=== PATIENT | male | born 1980 | race Caucasian/White ===

== ENCOUNTER 2017-07-15 20:43 | Emergency (ER) | payer BC, OTHER ==
--- OUTSIDE RECORDS SUMMARY | 2017-07-15 20:44 | XMS REPORT ---
:1980 Author Organization eClinicalWorks Care Team Providers Name Role Phone Esparza, Na Provider Role Unavailable Allergies, Adverse Reactions, Alerts Substance Reaction Event Type N.K.D.A. Info Not Available Non Drug Allergy Problems Problem Type Condition Code Onset Dates Condition Status Problem Diabetes mellitus, type 2 E11.9 Active Problem Gastroesophageal reflux disease K21.9 Active Problem Cervicalgia M54.2 Active Problem Hyperlipidemia E78.5 Active Problem Hypertension I10 Active Problem ADD (attention deficit disorder) F98.8 Active without hyperactivity Problem Morbid obesity E66.01 Active Problem Migraine G43.909 Active Problem Anxiety F41.9 Active Problem Insomnia G47.00 Active Assessment ADD (attention deficit disorder) F98.8 Active without hyperactivity Assessment Insomnia G47.00 Active Assessment Migraine G43.909 Active Assessment Anxiety F41.9 Active Assessment Hypertension I10 Active Assessment Diabetes mellitus, type 2 E11.9 Active Assessment Gastroesophageal reflux disease K21.9 Active Problem Cervical radiculopathy M54.12 Active Assessment Hyperlipidemia E78.5 Active Problem Tingling in extremities R20.2 Active Medications Medication Code Code Instructions Start End Status Dosage System Date Date Imitrex [facility] 07921224368 100 MG Orally Active 1 tablet ocne a day as as needed needed, may repeat 1 dose in 2 hours max of 200mg in 24 hours Dexilant [facility] 18678809253 60 MG Orally Active 1 capsule Once a day GlipiZIDE [facility] 75937773006 5 MG Orally Once Active 1 tablet a day Cozaar [facility] 90634740989 100 MG Orally Active 1 tablet Once a day Ambien [facility] 15395141939 10 MG Orally Active 1 tablet Once a day at bedtime as needed Aspirin Adult [facility] 91398892353 81 MG Orally Active 1 tablet Low Dose Once a day Zoloft [facility] 13045778385 100 MG Orally Active 1 tablet Once a day Metformin HCl [facility] 46614434245 1000 MG Orally Active 1 tablet Twice a day with meals Lipitor [facility] 99596005086 20 MG Orally Active 1 tablet Once a day Results Name Result Date Reference Range Unit Abnormality Flag HEMOGLOBIN A1c ----HEMOGLOBIN A1c 6.6 [id number] <5.7 % of total H Hgb CBC (INCLUDES DIFF/PLT) ----ABSOLUTE 380 48849644 15-500 cells/uL N EOSINOPHILS ----MCV 84.1 90406127 80.0-100.0 fL N ----HEMATOCRIT 44.0 29972624 38.5-50.0 % N ----ABSOLUTE 518 37157374 200-950 cells/uL N MONOCYTES ----MCHC 33.6 17418363 32.0-36.0 g/dL N ----ABSOLUTE 2000 45535417 850-3900 cells/uL N LYMPHOCYTES ----MCH 28.3 17902891 27.0-33.0 pg N ----ABSOLUTE 4365 01933264 1324-6781 cells/uL N NEUTROPHILS ----MONOCYTES 7.1 09447986 % N ----WHITE BLOOD 7.3 78654365 3.8-10.8 Thousand/uL N CELL COUNT ----LYMPHOCYTES 27.4 07116354 % N ----NEUTROPHILS 59.8 72328047 % N ----HEMOGLOBIN 14.8 97307746 13.2-17.1 g/dL N ----ABSOLUTE 37 55749029 0-200 cells/uL N BASOPHILS ----RED BLOOD CELL 5.23 08944162 4.20-5.80 Million/uL N COUNT ----BASOPHILS 0.5 39321044 % N ----MPV 10.0 47801134 7.5-12.5 fL N ----EOSINOPHILS 5.2 10828861 % N ----RDW 13.0 99437755 11.0-15.0 % N ----PLATELET COUNT 285 70062229 140-400 Thousand/uL N COMPREHENSIVE METABOLIC PANEL(CMP) ----ALBUMIN/GLOBULI 2.0 30499710 1.0-2.5 (calc) N N RATIO ----GLOBULIN 2.2 63114539 1.9-3.7 g/dL (calc) N ----ALKALINE 83 46859023 40-115 U/L N PHOSPHATASE ----BILIRUBIN, 0.4 54293338 0.2-1.2 mg/dL N TOTAL ----CHLORIDE 104 20170706 98-110 mmol/L N ----ALT 34 20170706 9-46 U/L N ----POTASSIUM 4.3 61159145 3.5-5.3 mmol/L N ----AST 18 20170706 10-40 U/L N ----SODIUM 137 40718362 135-146 mmol/L N ----BUN/CREATININE NOT APPLICABLE 20170706 6-22 (calc) RATIO ----eGFR 134 85339280 > OR=60 mL/min/1.73 [place] [address] ----CALCIUM 9.5 64373511 8.6-10.3 mg/dL N ----CARBON DIOXIDE 26 20170706 20-31 mmol/L N ----ALBUMIN 4.4 20170706 3.6-5.1 g/dL N ----PROTEIN, TOTAL 6.6 23018862 6.1-8.1 g/dL N ----GLUCOSE 125 20170706 65-139 mg/dL N ----UREA NITROGEN 15 20170706 7-25 mg/dL N (BUN) ----CREATININE 0.77 93535428 0.60-1.35 mg/dL N ----eGFR NON-AFR. 116 79396870 > OR=60 mL/min/1.73 [address] [place] [address] LIPID PANEL WITH REFLEX TO DIRECT LDL ----NON HDL 127 16140539 <130 mg/dL N CHOLESTEROL (calc) ----LDL-CHOLESTEROL 96 74642387 mg/dL N (calc) ----CHOL/HDLC RATIO 3.6 45135264 <5.0 (calc) N ----HDL CHOLESTEROL 48 88138306 >40 mg/dL N ----TRIGLYCERIDES 212 52962996 <150 mg/dL H ----CHOLESTEROL, 175 62081300 <200 mg/dL N TOTAL Summary Purpose eClinicalWorks Submission
--- OUTSIDE RECORDS SUMMARY | 2017-07-15 20:45 | XMS REPORT ---
:1980 Author Organization e[employer]Works Care Team Providers Name Role Phone Esparza, Na Provider Role Unavailable Allergies No Known Allergies Problems Problem Type Condition Code Onset Dates Condition Status Problem Diabetes mellitus, type 2 E11.9 Active Problem Gastroesophageal reflux disease K21.9 Active Problem Cervicalgia M54.2 Active Problem Cervical radiculopathy M54.12 Active Problem Tingling in extremities R20.2 Active Problem Hyperlipidemia E78.5 Active Problem Hypertension I10 Active Problem ADD (attention deficit disorder) F98.8 Active without hyperactivity Problem Morbid obesity E66.01 Active Problem Migraine G43.909 Active Problem Anxiety F41.9 Active Problem Insomnia G47.00 Active Medications No Known Medications Results No Known Results Summary Purpose eClinicalWorks Submission
[2017-07-15 21:18] LABS: Absolute Lymphocytes (CBC) 2.1 K/uL (0.7-4.9); Absolute Monocytes 0.4 K/uL (0.1-1.3); Absolute Neutrophil 3.2 K/uL (1.8-8.0); Basophils % 0.5 % (0-1.3); Eosinophils % 5.7 % (0-4.4); Hematocrit 43.1 % (39.6-49.0); Lymphocytes % 33.7 % (15.3-44.8); MCH 28.4 pg (27.0-35.0); MCV 84.5 fL (80-100); MPV 7.6 fL (7.6-11.3); Monocytes % 7.3 % (3.3-12.3)
[2017-07-15 21:23] LABS: Protime INR 0.9
[2017-07-15 21:35] LABS: Bicarbonate 26 mEq/L (21-31); Glucose Level 218 mg/dL (65-120); Potassium 3.7 mEq/L (3.6-5.0); Sodium Level 135 mEq/L (135-145)
[2017-07-15 21:51] LABS: ALT/SGPT 38 IU/L (10-60); AST/SGOT 27 IU/L (10-42); Albumin 3.7 g/dL (3.2-5.5); Alkaline Phosphatase 85 IU/L (42-121); BUN Blood Urea Nitrogen 14 mg/dL (6-20); Bilirubin Direct 0.1 mg/dL (0-0.2); Bilirubin Total 0.5 mg/dL (0.3-1.2); Creatine Phosphokinase 152 IU/L (22-269); Magnesium 1.6 mg/dL (1.8-2.5); Protein, Total 6.4 g/dL (6.0-8.3)
[2017-07-15] MEDS ORDERED: Magnesium Sulfate 2gm IVPB 2 G/50 ML BAG IV ONE (22:05)
--- NOTE | 2017-07-15 23:51 | EDPHYS ---
Physician Documentation [facility] Name: Mitch Lobo Age: 36 yrs Sex: Male : 1980 Arrival Date: 07/15/2017 Time: 20:46 Bed 15 Private MD: ED Physician Reginald Ferro HPI: 07/15 22:14 This 36 yrs old Male presents to ER via Wheelchair with complaints of Chest kb Pain. 22:14 The patient or guardian reports chest pain that is located primarily in the substernal kb area. The pain radiates to the left arm. Associated signs and symptoms: The patient has no apparent associated signs or symptoms. The chest pain is described as tightness. Duration: The patient or guardian reports a single episode, that is still ongoing. Modifying factors: The symptoms are alleviated by nothing. the symptoms are aggravated by nothing. Severity of pain: At its worst the pain was moderate in the emergency department the pain is unchanged. The patient has not experienced similar symptoms in the past. The patient has not recently seen a physician. 22:53 Pain started after arguing with family member. kb Historical: - Allergies: 20:50 No Known Allergies; la1 - Home Meds: 21:52 Ambien 10 mg Oral tab as needed [Active]; aspirin 81 mg Oral chew 1 tab once daily bs1 [Active]; atorvastatin 20 mg Oral tab 1 tab once daily [Active]; Dexilant 60 mg Oral CpDB 1 cap once daily [Active]; losartan 100 mg Oral tab 1 tab once daily [Active]; metformin 1,000 mg Oral tab 1 tab 2 times per day [Active]; sertraline 100 mg Oral tab 1 tab once daily [Active]; Vyvanse 60 mg Oral cap once daily [Active]; Zyrtec 10 mg Oral tab 1 tab once daily [Active]; - PMHx: 20:50 Diabetes - IDDM; Gastric Reflux; High Cholesterol; Hypertension; la1 - PSHx: 21:52 None; bs1 - Immunization history:: Adult Immunizations up to date. - Social history:: Smoking status: Patient/guardian denies using tobacco. ROS: 22:13 Constitutional: Negative for fever, chills, and weight loss, Respiratory: Negative for kb shortness of breath, cough, wheezing, and pleuritic chest pain, Abdomen/GI: Negative for abdominal pain, nausea, vomiting, diarrhea, and constipation, Back: Negative for injury and pain, : Negative for injury, bleeding, discharge, and swelling, MS/Extremity: Negative for injury and deformity, Skin: Negative for injury, rash, and discoloration, Neuro: Negative for headache, weakness, numbness, tingling, and seizure. 22:13 Cardiovascular: Positive for chest pain, Negative for edema, orthopnea, palpitations, paroxysmal nocturnal dyspnea. Exam: 22:13 Constitutional: This is a well developed, well nourished patient who is awake, alert, kb and in no acute distress. Head/Face: Normocephalic, atraumatic. Chest/axilla: Normal chest wall appearance and motion. Nontender with no deformity. No lesions are appreciated. Cardiovascular: Regular rate and rhythm with a normal S1 and S2. No gallops, murmurs, or rubs. Normal PMI, no JVD. No pulse deficits. Respiratory: Lungs have equal breath sounds bilaterally, clear to auscultation and percussion. No rales, rhonchi or wheezes noted. No increased work of breathing, no retractions or nasal flaring. Abdomen/GI: Soft, non-tender, with normal bowel sounds. No distension or tympany. No guarding or rebound. No evidence of tenderness throughout. Skin: Warm, dry with normal turgor. Normal color with no rashes, no lesions, and no evidence of cellulitis. MS/ Extremity: Pulses equal, no cyanosis. Neurovascular intact. Full, normal range of motion. Neuro: Awake and alert, GCS 15, oriented to person, place, time, and situation. Cranial nerves II-XII grossly intact. Motor strength 5/5 in all extremities. Sensory grossly intact. Cerebellar exam normal. Normal gait. Vital Signs: 20:50 BP 140 / 93; Pulse 74; Resp 16; Temp 98.5; Pulse Ox 100% on R/A; Weight 120.2 kg; la1 Height 5 ft. 10 in. (177.80 cm); 21:45 BP 129 / 80; Pulse 69; Resp 23; Pulse Ox 95% ; bs1 22:45 BP 106 / 61; Pulse 61; Resp 17; Pulse Ox 100% on R/A; Pain 0/10; bs1 23:45 BP 125 / 87; Pulse 54; Resp 18; Pulse Ox 100% on R/A; Pain 0/10; bs1 07/16 00:00 BP 119 / 80; Pulse 55; Resp 17; Temp 98(O); Pulse Ox 99% on R/A; Pain 0/10; bs1 07/15 20:50 Body Mass Index 38.02 (120.20 kg, 177.80 cm) la1 MDM: 07/15 20:55 Patient medically screened. 22:13 HILLARY Risk Score: 1 - Three or more CAD risk factors, [HTN], [Elevated Cholesterol], kb [DM], TOTAL SCORE = 1. Data reviewed: vital signs, nurses notes. Data interpreted: Pulse oximetry: on room air is 95 %. Interpretation: normal. ED course: HEART score - 2. 23:50 Data reviewed: I have discussed the patient's presentation/case with the attending Emergency Department Physician;. Counseling: I had a detailed discussion with the patient and/or guardian regarding: the historical points, exam findings, and any diagnostic results supporting the discharge/admit diagnosis, lab results, radiology results, the need for outpatient follow up, a retail marketing manager, a family practitioner, to return to the emergency department if symptoms worsen or persist or if there are any questions or concerns that arise at home. 07/15 21:06 Order name: Basic Metabolic Panel; Complete Time: 21:59 kb 07/15 21:06 Order name: BNP; Complete Time: 21:43 kb 07/15 21:06 Order name: CBC with Diff; Complete Time: 21:21 kb 07/15 21:06 Order name: Ckmb; Complete Time: 21:59 kb 07/15 21:06 Order name: CPK; Complete Time: 21:59 kb 07/15 21:06 Order name: LFT's; Complete Time: 21:59 kb 07/15 21:06 Order name: Magnesium; Complete Time: 21:59 kb 07/15 21:06 Order name: PT-INR; Complete Time: 21:32 kb 07/15 21:06 Order name: Ptt, Activated; Complete Time: 21:32 kb 07/15 21:06 Order name: Troponin (emerg Dept Use Only); Complete Time: 21:39 kb 07/15 21:06 Order name: XRAY Chest (1 view) 07/15 21:06 Order name: EKG; Complete Time: 21:07 kb 07/15 22:53 Order name: Troponin (emerg Dept Use Only); Complete Time: 23:50 kb 07/15 21:06 Order name: Cardiac monitoring; Complete Time: 21:53 kb 07/15 21:06 Order name: EKG - Nurse/Tech; Complete Time: 21:53 kb 07/15 21:06 Order name: IV Saline Lock; Complete Time: 21:53 kb 07/15 21:06 Order name: Labs collected and sent; Complete Time: 21:53 kb 07/15 21:06 Order name: O2 Per Protocol; Complete Time: 21:53 kb 07/15 21:06 Order name: O2 Sat Monitoring; Complete Time: 21:53 kb 07/15 22:53 Order name: EKG; Complete Time: 22:53 kb 07/15 22:53 Order name: EKG - Nurse/Tech; Complete Time: 23:40 kb Administered Medications: 22:11 Drug: Magnesium Sulfate 2 grams Route: IVPB; Infused Over: 2 hrs; Site: right bs1 antecubital; 23:40 Follow up: IV Status: Completed infusion bs1 Disposition: 07/16 03:13 Co-signature as Attending Physician, Reginald Ferro MD I agree with the assessment and tw4 plan of care. Disposition: 07/15/17 23:51 Discharged to Home. Impression: Chest pain, unspecified. - Condition is Stable. - Discharge Instructions: Nonspecific Chest Pain, Dieq-mn-Odiy. - Medication Reconciliation Form, Thank You Letter, Antibiotic Education, Prescription Opioid Use form. - Follow up: Emergency Department; When: As needed; Reason: Worsening of condition. Follow up: Private Physician; When: 2 - 3 days; Reason: Recheck today's complaints, Continuance of care, Re-evaluation by your physician. Signatures: Dispatcher [employer] Noelle Mendiola FNP-C FNP-Kana Flores RN RN Dolly Velarde, RN RN bs1 Reginald Ferro MD MD tw4
--- NOTE | 2017-07-15 23:51 | ER ---
Nurse's Notes [facility] Name: Mitch Lobo Age: 36 yrs Sex: Male : 1980 Arrival Date: 07/15/2017 Time: 20:46 Bed 15 Private MD: Diagnosis: Chest pain, unspecified Presentation: 07/15 20:49 Presenting complaint: Patient states: I have been having a pressure like chest pain la1 since 529, pt states the pain woke him up. Pt reports pain radiates down left arm and he has been feeling very fatigued all day. Transition of care: patient was not received from another setting of care. Onset of symptoms was July 15, 2017. Initial Sepsis Screen: Does the patient meet any 2 criteria? No. Patient's initial sepsis screen is negative. Does the patient have a suspected source of infection? No. Patient's initial sepsis screen is negative. Care prior to arrival: None. 20:49 Method Of Arrival: Wheelchair la1 20:49 Acuity: JOSE M 2 la1 Historical: - Allergies: 20:50 No Known Allergies; la1 - Home Meds: 21:52 Ambien 10 mg Oral tab as needed [Active]; aspirin 81 mg Oral chew 1 tab once daily bs1 [Active]; atorvastatin 20 mg Oral tab 1 tab once daily [Active]; Dexilant 60 mg Oral CpDB 1 cap once daily [Active]; losartan 100 mg Oral tab 1 tab once daily [Active]; metformin 1,000 mg Oral tab 1 tab 2 times per day [Active]; sertraline 100 mg Oral tab 1 tab once daily [Active]; Vyvanse 60 mg Oral cap once daily [Active]; Zyrtec 10 mg Oral tab 1 tab once daily [Active]; - PMHx: 20:50 Diabetes - IDDM; Gastric Reflux; High Cholesterol; Hypertension; la1 - PSHx: 21:52 None; bs1 - Immunization history:: Adult Immunizations up to date. - Social history:: Smoking status: Patient/guardian denies using tobacco. Screenin:50 Abuse screen: Denies threats or abuse. Denies injuries from another. Nutritional bs1 screening: No deficits noted. Tuberculosis screening: No symptoms or risk factors identified. Fall Risk None identified. Assessment: 20:55 General: Appears uncomfortable, Behavior is cooperative, anxious. Pain: Complains of bs1 pain in chest Pain radiates to left arm Pain began gradually. Neuro: Level of Consciousness is awake, alert, obeys commands, Oriented to person, place, time, situation, Appropriate for age Fuel Testing Technician are equal bilaterally Moves all extremities. Gait is steady, Speech is normal, Facial symmetry appears normal. Cardiovascular: Reports chest pain, Denies palpitations, shortness of breath, Heart tones S1 S2 present Capillary refill < 3 seconds Patient's skin is warm and dry. Respiratory: Airway is patent Trachea midline Respiratory effort is even, unlabored, Respiratory pattern is regular, symmetrical, Breath sounds are clear bilaterally. GI: No deficits noted. No signs and/or symptoms were reported involving the gastrointestinal system. : No deficits noted. No signs and/or symptoms were reported regarding the genitourinary system. EENT: No deficits noted. No signs and/or symptoms were reported regarding the EENT system. Derm: Skin is intact, Skin is pink, warm \T\ dry. Musculoskeletal: Circulation, motion, and sensation intact. Capillary refill < 3 seconds, Range of motion: intact in all extremities. 22:30 Reassessment: Patient appears in no apparent distress at this time. Patient and/or bs1 family updated on plan of care and expected duration. Pain level reassessed. Patient is alert, oriented x 3, equal unlabored respirations, skin warm/dry/pink. 23:20 Reassessment: Repeat EKG done, shown to ENVIRONMENTAL SCIENCE TECHNICIAN/MD. bs1 07/16 00:00 Reassessment: Patient appears in no apparent distress at this time. No changes from 1 previously documented assessment. Patient and/or family updated on plan of care and expected duration. Pain level reassessed. Patient is alert, oriented x 3, equal unlabored respirations, skin warm/dry/pink. Patient states feeling better. Patient states symptoms have improved. Vital Signs: 07/15 20:50 BP 140 / 93; Pulse 74; Resp 16; Temp 98.5; Pulse Ox 100% on R/A; Weight 120.2 kg; la1 Height 5 ft. 10 in. (177.80 cm); 21:45 BP 129 / 80; Pulse 69; Resp 23; Pulse Ox 95% ; bs1 22:45 BP 106 / 61; Pulse 61; Resp 17; Pulse Ox 100% on R/A; Pain 0/10; bs1 23:45 BP 125 / 87; Pulse 54; Resp 18; Pulse Ox 100% on R/A; Pain 0/10; bs1 07/16 00:00 BP 119 / 80; Pulse 55; Resp 17; Temp 98(O); Pulse Ox 99% on R/A; Pain 0/10; bs1 07/15 20:50 Body Mass Index 38.02 (120.20 kg, 177.80 cm) la1 ED Course: 07/15 20:46 Patient arrived in ED. es 20:49 Triage completed. la1 20:50 Arm band placed on left wrist. la1 20:53 Noelle Schmitz [facility]C [facility] kb 20:53 Reginald Ferro MD is Attending Physician. kb 20:54 Dolly Carver, KAYLA is Primary Nurse. bs1 21:09 No provider procedures requiring assistance completed. Inserted saline lock: 22 gauge bs1 in right forearm, using aseptic technique. 21:09 Patient maintains SpO2 saturation greater than 95% on room air. bs1 21:51 Patient has correct armband on for positive identification. Bed in low position. Call bs1 light in reach. Side rails up X 1. property assessment monitor on. Pulse ox on. NIBP on. Sitter at bedside. Warm blanket given. 21:55 X-ray completed. Portable x-ray completed in exam room. Patient tolerated procedure ag1 well. 21:56 XRAY Chest (1 view) In Process Unspecified. EDMS 23:15 Repeat lab(s) drawn. by ms, sent to lab. Repeat troponin. bs1 07/16 00:23 IV discontinued, bleeding controlled, No redness/swelling at site. Pressure dressing bs1 applied. Administered Medications: 07/15 22:11 Drug: Magnesium Sulfate 2 grams Route: IVPB; Infused Over: 2 hrs; Site: right bs1 antecubital; 23:40 Follow up: IV Status: Completed infusion bs1 Outcome: 23:51 Discharge ordered by . patricio 07/16 00:22 Discharged to home ambulatory, with significant other. bs1 Condition: stable Discharge instructions given to patient, Instructed on discharge instructions, follow up and referral plans. Demonstrated understanding of instructions, follow-up care. 00:23 Patient left the ED. bs1 Signatures: Dispatcher [employer] EDMS Noelle Schmitz FNP-C FNP-Ckb Trinh Ochoa Lee, RN RN la1 Amy [email or web address] Dolly Carver, RN RN bs1
[2017-07-16 00:56] VITALS: BP 119/80; TEMP 98; O2SAT 99
--- NOTE | 2017-07-16 07:01 | EKG ---
Test Date: 2017-07-15 Test Time: 23:14:40 Phone Representative: DONNELL MEASUREMENT RESULTS: Intervals: Rate: 59 DE: 166 QRSD: 96 QT: 418 QTc: 413 [place]: P: 39 DE: 166 QRS: 65 T: 2 INTERPRETIVE STATEMENTS: Sinus bradycardia Cannot rule out Inferior infarct, age undetermined Abnormal ECG Compared to ECG 07/15/2017 23:13:09 Sinus rhythm no longer present Myocardial infarct finding still present Electronically Signed On 07-16-17 07:00:52 CDT by Jeromy Joshi
--- NOTE | 2017-07-16 07:01 | EKG ---
Test Date: 2017-07-15 Test Time: 23:13:09 Stamping Die Maker: DONNELL MEASUREMENT RESULTS: Intervals: Rate: 64 MA: 166 QRSD: 96 QT: 408 QTc: 420 [place]: P: 41 MA: 166 QRS: 63 T: 0 INTERPRETIVE STATEMENTS: Normal sinus rhythm Possible Inferior infarct, age undetermined Abnormal ECG Compared to ECG 07/15/2017 20:56:23 Myocardial infarct finding now present Electronically Signed On 07-16-17 07:00:57 CDT by Jeromy Joshi
--- NOTE | 2017-07-16 07:02 | EKG ---
Test Date: 2017-07-15 Test Time: 20:56:23 Maintenance Mechanic Technician: DONNELL MEASUREMENT RESULTS: Intervals: Rate: 69 ND: 160 QRSD: 92 QT: 388 QTc: 415 [place]: P: 37 ND: 160 QRS: 60 T: 5 INTERPRETIVE STATEMENTS: Normal sinus rhythm Normal ECG Compared to ECG 10/25/2015 10:30:00 No significant changes Electronically Signed On 07-16-17 07:01:24 CDT by Jeromy Joshi
--- NOTE | 2017-07-16 08:04 | RAD REPORT ---
EXAM DESCRIPTION: Makenzie Single View07/15/2017 9:56 pm CLINICAL HISTORY: Chest pain COMPARISON: April 2016 FINDINGS: The lungs appear clear of acute infiltrate. The heart is normal size IMPRESSION: No acute abnormalities displayed
== END 2017-07-16 00:23 | disposition home or self-care (01) ==
LOC: ER 20:43
DX: R07.9 Chest pain, unspecified (principal); I10 Essential (primary) hypertension; E11.9 Type 2 diabetes mellitus without complications; E78.00 Pure hypercholesterolemia, unspecified; Z79.82 Long term (current) use of aspirin
CPT/HCPCS: 36415; 71045; 80048; 80076; 82550; 82553; 83735; 83880; 84484; 85025; 85610; 85730; 93005; 96365; 99285; J3475

== ENCOUNTER 2017-10-30 18:48 | Observation (INO) | payer BC, OTHER ==
--- OUTSIDE RECORDS SUMMARY | 2017-10-30 18:51 | XMS REPORT ---
:1980 Author Organization eClinicalWorks Care Team Providers Name Role Phone Espazra, Na Provider Role Unavailable Allergies No Known [...]
--- OUTSIDE RECORDS SUMMARY | 2017-10-30 18:51 | XMS REPORT ---
[...] End Status Dosage System Date Date Imitrex [facility] 79500124907 100 MG Orally Active 1 tablet ocne a day as as needed needed, may repeat 1 dose in 2 hours max of 200mg in 24 hours Dexilant [facility] 11010020694 60 MG Orally Active 1 capsule Once a day GlipiZIDE [facility] 71365855209 5 MG Orally Once Active 1 tablet a day Cozaar [facility] 93779761672 100 MG Orally Active 1 tablet Once a day Ambien [facility] 39858139642 10 MG Orally Active 1 tablet Once a day at bedtime as needed Aspirin Adult [facility] 10236896842 81 MG Orally Active 1 tablet Low Dose Once a day Zoloft [facility] 89848691312 100 MG Orally Active 1 tablet Once a day Metformin HCl [facility] 04690605756 1000 MG Orally Active 1 tablet Twice a day with meals Lipitor [facility] 69757336496 20 MG Orally Active 1 tablet Once a day Results Name Result Date Reference Range Unit Abnormality Flag HEMOGLOBIN A1c ----HEMOGLOBIN A1c 6.6 [id number] <5.7 % of total H Hgb CBC (INCLUDES DIFF/PLT) ----ABSOLUTE 380 68222964 15-500 cells/uL N EOSINOPHILS ----MCV 84.1 32097162 80.0-100.0 fL N ----HEMATOCRIT 44.0 50852408 38.5-50.0 % N ----ABSOLUTE 518 21800728 200-950 cells/uL N MONOCYTES ----MCHC 33.6 49095177 32.0-36.0 g/dL N ----ABSOLUTE 2000 68058847 850-3900 cells/uL N LYMPHOCYTES ----MCH 28.3 34572250 27.0-33.0 pg N ----ABSOLUTE 4365 34560556 8785-0260 cells/uL N NEUTROPHILS ----MONOCYTES 7.1 56997532 % N ----WHITE BLOOD 7.3 97094617 3.8-10.8 Thousand/uL N CELL COUNT ----LYMPHOCYTES 27.4 29264824 % N ----NEUTROPHILS 59.8 86224888 % N ----HEMOGLOBIN 14.8 48158822 13.2-17.1 g/dL N ----ABSOLUTE 37 00045467 0-200 cells/uL N BASOPHILS ----RED BLOOD CELL 5.23 32772988 4.20-5.80 Million/uL N COUNT ----BASOPHILS 0.5 43762876 % N ----MPV 10.0 45860316 7.5-12.5 fL N ----EOSINOPHILS 5.2 91540160 % N ----RDW 13.0 80858859 11.0-15.0 % N ----PLATELET COUNT 285 24666416 140-400 Thousand/uL N COMPREHENSIVE METABOLIC PANEL(CMP) ----ALBUMIN/GLOBULI 2.0 11301167 1.0-2.5 (calc) N N RATIO ----GLOBULIN 2.2 38702140 1.9-3.7 g/dL (calc) N ----ALKALINE 83 10914450 40-115 U/L N PHOSPHATASE ----BILIRUBIN, 0.4 43829559 0.2-1.2 mg/dL N TOTAL ----CHLORIDE 104 20170706 98-110 mmol/L N ----ALT 34 77362774 9-46 U/L N ----POTASSIUM 4.3 31702977 3.5-5.3 mmol/L N ----AST 18 20170706 10-40 U/L N ----SODIUM 137 32233313 135-146 mmol/L N ----BUN/CREATININE NOT APPLICABLE 20170706 6-22 (calc) RATIO ----eGFR 134 93930960 > OR=60 mL/min/1.73 [address] [place] [address] ----CALCIUM 9.5 45281693 8.6-10.3 mg/dL N ----CARBON DIOXIDE 26 20170706 20-31 mmol/L N ----ALBUMIN 4.4 80429154 3.6-5.1 g/dL N ----PROTEIN, TOTAL 6.6 54879345 6.1-8.1 g/dL N ----GLUCOSE 125 38975555 65-139 mg/dL N ----UREA NITROGEN 15 39434338 7-25 mg/dL N (BUN) ----CREATININE 0.77 24660991 0.60-1.35 mg/dL N ----eGFR NON-AFR. 116 62432659 > OR=60 mL/min/1.73 [address] [place] [address] LIPID PANEL WITH REFLEX TO DIRECT LDL ----NON HDL 127 61331549 <130 mg/dL N CHOLESTEROL (calc) ----LDL-CHOLESTEROL 96 67447795 mg/dL N (calc) ----CHOL/HDLC RATIO 3.6 60778613 <5.0 (calc) N ----HDL CHOLESTEROL 48 13638503 >40 mg/dL N ----TRIGLYCERIDES 212 48381457 <150 mg/dL H ----CHOLESTEROL, 175 10029479 <200 mg/dL N TOTAL Summary Purpose eClinicalWorks Submission
--- OUTSIDE RECORDS SUMMARY | 2017-10-30 18:51 | XMS REPORT ---
[...] F41.9 Active Problem Insomnia G47.00 Active Assessment Gastroesophageal reflux disease K21.9 Active Problem Cervical radiculopathy M54.12 Active Problem Tingling in extremities R20.2 Active Medications Medication Code System Code Instructions Start End Date Status Dosage Date Dexilant [facility] 30065424910 60 MG Orally Once Active 1 capsule a day Results No Known Results Summary Purpose eClinicalWorks Submission
--- OUTSIDE RECORDS SUMMARY | 2017-10-30 18:51 | XMS REPORT ---
[...] deficit disorder) F98.8 Active without hyperactivity Assessment Anxiety F41.9 Active Assessment Insomnia G47.00 Active Assessment Diabetes mellitus, type 2 E11.9 Active Assessment Hyperlipidemia E78.5 Active Problem Cervical radiculopathy M54.12 Active Assessment Hypertension I10 Active Problem Tingling in extremities R20.2 Active Medications Medication Code Code Instructions Start End Status Dosage System Date Date Dexilant [facility] 43981750096 60 MG Orally Active 1 capsule Once a day Cozaar [facility] 28205080714 100 MG Orally Active 1 tablet Once a day Xanax [facility] 64597216666 0.5 MG Orally October 05, Active 1 tablet Twice a day 2017 BusPIRone HCl [facility] 96370194955 7.5 MG Orally October 05, Active 1 tablet Twice a day 2017 Lipitor [facility] 27047969855 20 MG Orally Active 1 tablet Once a day Imitrex [place] 36717585687 100 MG Orally Active 1 tablet ocne a day as as needed needed, may repeat 1 dose in 2 hours max of 200mg in 24 hours Metformin HCl [facility] 04799556359 1000 MG Orally Active 1 tablet Twice a day with meals Ambien [facility] 83927677673 10 MG Orally Active 1 tablet Once a day at bedtime as needed Zoloft [facility] 17920691613 100 MG Orally Active 1 tablet Once a day GlipiZIDE [facility] 96305819320 5 MG Orally Active 1 tablet twice a day Aspirin Adult [facility] 84015674754 81 MG Orally Active 1 tablet Low Dose Once a day Results No Known Results Summary Purpose eClinicalWorks Submission
--- OUTSIDE RECORDS SUMMARY | 2017-10-30 18:51 | XMS REPORT ---
:1980 Author Organization eClinicalWorks Care Team Providers Name Role Phone Judd Barrera Provider Role Unavailable Allergies No Known Allergies [...] F41.9 Active Problem Insomnia G47.00 Active Assessment Insect bite (nonvenomous) of right S60.561A Active hand, initial encounter Assessment Bitten or stung by nonvenomous W57.XXXA Active insect and other nonvenomous arthropods, initial encounter Problem Cervical radiculopathy M54.12 Active Assessment Local infection of the skin and L08.9 Active subcutaneous tissue, unspecified Problem Tingling in extremities R20.2 Active Medications Medication Code Code Instructions Start End Status Dosage System Date Date Sulfamethoxazo [facility] 97501154149 800-160 MG October 15, Oct 25, Active 1 tablet le-Trimethopri Orally Twice a 2018 2017 day Cozaar [facility] 26806770303 100 MG Orally Active 1 tablet Once a day Xanax [facility] 69655717221 0.5 MG Orally October 05, Active 1 tablet Twice a day 2017 Zoloft [facility] 57635675538 100 MG Orally Active 1 tablet Once a day Dexilant [facility] 90356763785 60 MG Orally Active 1 capsule Once a day Lipitor [place] 51730182765 20 MG Orally Active 1 tablet Once a day Ambien [facility] 68839711023 10 MG Orally Active 1 tablet Once a day at bedtime as needed BusPIRone HCl ND 77538374459 7.5 MG Orally October 05, Active 1 tablet Twice a day 2017 Metformin HCl [facility] 57077840639 1000 MG Orally Active 1 tablet Twice a day with meals GlipiZIDE [facility] 64587617959 5 MG Orally Active 1 tablet twice a day Imitrex [facility] 45208762283 100 MG Orally Active 1 tablet ocne a day as as needed needed, may repeat 1 dose in 2 hours max of 200mg in 24 hours Aspirin Adult [facility] 57133254323 81 MG Orally Active 1 tablet Low Dose Once a day Results No Known Results Summary Purpose eClinicalWorks Submission
[2017-10-30] MEDS ORDERED: FAMOTIDINE 20 MG/2 ML VIAL IV ONE (19:54)
[2017-10-30] MEDS ORDERED: FENTANYL CITR 100 MCG/2 ML ONE (19:54)
[2017-10-30] MEDS ORDERED: NA CHLORIDE 0.9% 2,000 ML ONE (19:54)
[2017-10-30] MEDS ORDERED: ONDANSETRON 4 MG/2 ML VIAL ONE (19:54)
[2017-10-30] MEDS ORDERED: CIPROFLOXACIN 400mg IV 400 MG/200 ML BAG IV ONE (19:54)
[2017-10-30] MEDS ORDERED: METRONIDAZOLE 500mg IVPB 500 MG/100 ML BAG IV ONE (19:55)
[2017-10-30 20:07] LABS: Absolute Lymphocytes (CBC) 2.2 K/uL (0.7-4.9); Absolute Monocytes 0.6 K/uL (0.1-1.3); Basophils % 0.4 % (0-1.3); Eosinophils % 4.4 % (0-4.4); Hematocrit 42.8 % (39.6-49.0); Lymphocytes % 31.1 % (15.3-44.8); MCH 28.6 pg (27.0-35.0); MCV 84.6 fL (80-100); Monocytes % 8.5 % (3.3-12.3); RBC Red Blood Cell Count 5.06 M/uL (4.33-5.43)
[2017-10-30 20:16] LABS: Protime INR 0.9
[2017-10-30 20:27] LABS: ALT/SGPT 65 U/L (12-78); AST/SGOT 35 U/L (15-37); Albumin 4.1 g/dL (3.4-5.0); Alkaline Phosphatase 95 U/L (45-117); BUN Blood Urea Nitrogen 16 mg/dL (7-18); Bicarbonate 27 mmol/L (21-32); Bilirubin Direct 0.1 mg/dL (0-0.2); Bilirubin Total 0.5 mg/dL (0.2-1.0); CKMB Creatine Kinase MB < 1.0 ng/mL (0.3-3.6); Creatine Phosphokinase 205 U/L (39-308); Glucose Level 155 mg/dL (74-106); Lipase 267 U/L (73-393); Magnesium 2.1 mg/dL (1.8-2.4); NT PRO-BNP 37 pg/mL (<125); Potassium 3.8 mmol/L (3.5-5.1); Protein, Total 7.6 g/dL (6.4-8.2); Sodium Level 139 mmol/L (136-145)
[2017-10-30 21:12] LABS: Urine Blood NEGATIVE (NEG); Urine Glucose NEGATIVE (NEG); Urine Protein NEGATIVE (NEG); Urine Specific Gravity >1.030 (1.005-1.030)
--- NOTE | 2017-10-30 22:06 | RAD REPORT ---
EXAM DESCRIPTION: Makenzie Single View10/30/2017 8:06 pm CLINICAL HISTORY: abd pain COMPARISON: June 2017 FINDINGS: The lungs appear clear of acute infiltrate. The heart is normal size IMPRESSION: No acute abnormalities displayed
--- NOTE | 2017-10-30 22:57 | ER ---
Nurse's Notes [facility] Name: Mitch Lobo Age: 37 yrs Sex: Male : 1980 Arrival Date: 10/30/2017 Time: 18:51 Bed 24 Private MD: Diagnosis: Abdominal tenderness;Diarrhea, unspecified;Acute appendicitis Presentation: 10/30 19:04 Presenting complaint: Patient states: right lower quadrant abd pain X1 week ak1 intermittent. pt c/o diarrhea x4 days with nausea, denies vomiting. Transition of care: patient was not received from another setting of care. Onset of symptoms is unknown. Risk Assessment: Do you want to hurt yourself or someone else? Patient reports no desire to harm self or others. Initial Sepsis Screen: Does the patient meet any 2 criteria? No. Patient's initial sepsis screen is negative. Does the patient have a suspected source of infection? No. Patient's initial sepsis screen is negative. Care prior to arrival: None. 19:04 Method Of Arrival: Ambulatory ak1 19:04 Acuity: JOSE M 3 ak1 Triage Assessment: 19:04 General: Appears in no apparent distress. Behavior is calm, cooperative. Pain: ak1 Complains of pain in right lower quadrant. EENT: No signs and/or symptoms were reported regarding the EENT system. Neuro: No deficits noted. Cardiovascular: No deficits noted. Respiratory: No deficits noted. GI: Reports lower abdominal pain, diarrhea, nausea. : No signs and/or symptoms were reported regarding the genitourinary system. Derm: No signs and/or symptoms reported regarding the dermatologic system. Musculoskeletal: No signs and/or symptoms reported regarding the musculoskeletal system. Historical: - Allergies: 19:12 No Known Allergies; ak1 - Home Meds: 19:12 atorvastatin 20 mg Oral tab 1 tab once daily [Active]; Dexilant 60 mg Oral CpDB 1 cap ak1 once daily [Active]; Vyvanse 60 mg Oral cap once daily [Active]; Zyrtec 10 mg Oral tab 1 tab once daily [Active]; sertraline 100 mg Oral tab 1 tab once daily [Active]; metformin 1,000 mg Oral tab 1 tab 2 times per day [Active]; losartan 100 mg Oral tab 1 tab once daily [Active]; glipizide 5 mg Oral tab .5 tab in morning 1 full tab at night [Active]; alprazolam 0.5 mg Oral TbDL 1 tab PRN BID [Active]; - PMHx: 19:12 Gastric Reflux; High Cholesterol; Hypertension; Diabetes - NIDDM; ak1 - PSHx: 19:12 Cholecystectomy; ak1 - Immunization history:: Adult Immunizations up to date. - Social history:: Smoking status: Patient/guardian denies using tobacco. - Ebola Screening: : No symptoms or risks identified at this time. - Family history:: not pertinent. Screenin:12 Abuse screen: Denies threats or abuse. Denies injuries from another. Nutritional ak1 screening: No deficits noted. Tuberculosis screening: No symptoms or risk factors identified. Fall Risk None identified. Assessment: 19:22 General: Appears in no apparent distress. uncomfortable, obese, well groomed, Behavior kr2 is calm, cooperative, appropriate for age. Pain: Complains of pain in right lower quadrant Pain does not radiate. Pain currently is 8 out of 10 on a pain scale. Quality of pain is described as sharp, Is continuous, Alleviated by nothing. Neuro: Level of Consciousness is awake, alert, obeys commands, Oriented to person, place, time, situation. Cardiovascular: Capillary refill < 3 seconds in bilateral fingers Patient's skin is warm and dry. Respiratory: Airway is patent Respiratory effort is even, unlabored, Respiratory pattern is regular, symmetrical. GI: Abdomen is non-distended, obese, Bowel sounds present X 4 quads. Abd is soft X 4 quads Abdomen is tender to palpation in right lower quadrant Reports diarrhea, nausea, Patient currently denies vomiting. : Denies burning with urination. EENT: Oral mucosa is moist. Derm: Skin is intact, is healthy with good turgor, Skin is pink, warm \T\ dry. Musculoskeletal: Circulation, motion, and sensation intact. 20:30 Reassessment: Patient appears in no apparent distress at this time. Patient and/or kr2 family updated on plan of care and expected duration. Pain level reassessed. Patient is alert, oriented x 3, equal unlabored respirations, skin warm/dry/pink. 21:30 Reassessment: Patient appears in no apparent distress at this time. Patient and/or kr2 family updated on plan of care and expected duration. Pain level reassessed. Patient is alert, oriented x 3, equal unlabored respirations, skin warm/dry/pink. 22:30 Reassessment: Patient appears in no apparent distress at this time. Patient and/or kr2 family updated on plan of care and expected duration. Pain level reassessed. Patient sleeping, at bedside. No episodes of diarrhea. 23:50 Reassessment: Patient appears in no apparent distress at this time. Patient and/or kr2 family updated on plan of care and expected duration. Pain level reassessed. Patient sleeping at this time, at bedside. Vital Signs: 19:04 BP 124 / 82; Pulse 93; Resp 16; Temp 98.3(O); Pulse Ox 97% on R/A; Weight 121.56 kg ak1 (R); Height 5 ft. 9 in. (175.26 cm) (R); Pain 8/10; 19:24 BP 120 / 80; Pulse 88; Resp 17; Pulse Ox 96% on R/A; kr2 21:04 BP 120 / 64; Pulse 85; Resp 17; Pulse Ox 97% on R/A; kr2 23:55 BP 122 / 68; Pulse 84; Resp 17; Temp 98.4; Pulse Ox 99% on R/A; kr2 19:04 Body Mass Index 39.58 (121.56 kg, 175.26 cm) ak1 ED Course: 18:51 Patient arrived in ED. mr 19:04 Arm band placed on Patient placed in an exam room, on a stretcher, Patient notified of ak1 wait time. 19:05 Triage completed. ak1 19:12 Patient has correct armband on for positive identification. Bed in low position. Call ak1 light in reach. Side rails up X 1. Adult w/ patient. 19:22 Kirti Mckeon, RN is Primary Nurse. kr2 19:24 Sabas Enriquez MD is Attending Physician. [facility] 19:25 Inserted saline lock: 22 gauge in right forearm, using aseptic technique. Blood jp3 collected. 19:38 Pillow given. jp3 19:45 Initial lab(s) drawn, by me, sent to lab. jp3 19:51 Lipase Sent. jp3 19:51 Basic Metabolic Panel Sent. jp3 19:51 CBC with Diff Sent. jp3 19:51 Ckmb Sent. jp3 19:51 CPK Sent. jp3 19:52 LFT's Sent. jp3 19:52 Magnesium Sent. jp3 19:52 NT PRO-BNP Sent. jp3 19:52 PT-INR Sent. jp3 19:52 Ptt, Activated Sent. jp3 19:52 Troponin (emerg Dept Use Only) Sent. jp3 20:04 X-ray completed. Portable x-ray completed in exam room. Patient tolerated procedure mh1 well. 20:52 XRAY Chest (1 view) In Process Unspecified. EDMS 22:[address] via wheelchair. 2 22:08 CT completed. Patient tolerated procedure well. Patient moved back from CT. 2 22:14 CT Abd/Pelvis - W/Contrast In Process Unspecified. EDMS 22:54 Chadwick Garner MD is Hospitalizing Provider. [facility] 23:55 No provider procedures requiring assistance completed. Patient admitted, IV remains in kr2 place. Administered Medications: 20:00 Drug: Pepcid 20 mg Route: IVP; Site: right forearm; rv 20:53 Follow up: Response: No adverse reaction; Pain is decreased; Nausea is decreased kr2 20:01 Drug: Flagyl 500 mg Volume: 100 ml; Route: IVPB; Rate: 200 ml/hr; Infused Over: 30 rv mins; Site: right forearm; 20:40 Follow up: Response: No adverse reaction; IV Status: Completed infusion kr2 20:01 Drug: fentaNYL (PF) 25 mcg Route: IVP; Site: right forearm; rv 20:53 Follow up: Response: No adverse reaction; Pain is decreased kr2 20:01 Drug: Zofran 4 mg Route: IVP; Site: right forearm; rv 20:53 Follow up: Response: No adverse reaction; Nausea is decreased kr2 20:02 Drug: NS 0.9% 1000 ml Route: IV; Rate: 1 bolus; Site: right forearm; rv 21:30 Follow up: Response: No adverse reaction; IV Status: Completed infusion kr2 20:40 Drug: Cipro 400 mg Volume: 200 ml; Route: IVPB; Infused Over: 60 mins; Site: right kr2 forearm; 21:45 Follow up: Response: No adverse reaction; IV Status: Completed infusion kr2 21:30 Drug: NS 0.9% 1000 ml Route: IV; Rate: 125 ml/hr; Site: right forearm; kr2 23:57 Follow up: Response: No adverse reaction; IV Status: Infusion continued upon admission kr2 23:52 Not Given (Patient verbalizes comfort at time of transfer to unit): fentaNYL (PF) 25 kr2 mcg IVP once Outcome: 22:57 Decision to Hospitalize by Provider. jenelle 23:56 Admitted to Med/surg accompanied by tech, via wheelchair, room 215, with chart, Report kr2 called to Elizabeth 23:56 Condition: stable 23:56 Instructed on the need for admit, Demonstrated understanding of instructions. 23:57 Patient left the ED. kr2 Signatures: Dispatcher [employer] EDSabas Crews MD MD cha Rivera, Maria mr Patel, Elizabeth mh1 Karen Arredondo RN RN ak1 Sarahy Mcdowell 2 Kirti Mckeon RN RN kr2 Rodríguez Avila, RN RN Pietro Rizo jp3 Corrections: (The following items were deleted from the chart) 20:53 20:40 Cipro 400 mg 200 ml IVPB in right antecubital over 60 mins 200 ml kr2 kr2
--- NOTE | 2017-10-30 22:57 | EDPHYS ---
Physician Documentation [facility] Name: Mitch Lobo Age: 37 yrs Sex: Male : 1980 Arrival Date: 10/30/2017 Time: 18:51 Bed 24 Private MD: ED Physician Sabas Enriquez HPI: 10/30 19:43 This 37 yrs old Male presents to ER via Ambulatory with complaints of jenelle Abdominal Pain. 19:43 The patient presents with abdominal pain in the right upper quadrant, right lower jenelle quadrant, abdominal distention in the upper abdomen, in the lower abdomen. Onset: The symptoms/episode began/occurred 3 day(s) ago. The patient presents to the emergency department with nausea, diarrhea, that is intermittent, abdominal pain, of the right upper quadrant and right lower quadrant. Historical: - Allergies: 19:12 No Known Allergies; ak1 - Home Meds: 19:12 atorvastatin 20 mg Oral tab 1 tab once daily [Active]; Dexilant 60 mg Oral CpDB 1 cap ak1 once daily [Active]; Vyvanse 60 mg Oral cap once daily [Active]; Zyrtec 10 mg Oral tab 1 tab once daily [Active]; sertraline 100 mg Oral tab 1 tab once daily [Active]; metformin 1,000 mg Oral tab 1 tab 2 times per day [Active]; losartan 100 mg Oral tab 1 tab once daily [Active]; glipizide 5 mg Oral tab .5 tab in morning 1 full tab at night [Active]; alprazolam 0.5 mg Oral TbDL 1 tab PRN BID [Active]; - PMHx: 19:12 Gastric Reflux; High Cholesterol; Hypertension; Diabetes - NIDDM; ak1 - PSHx: 19:12 Cholecystectomy; ak1 - Immunization history:: Adult Immunizations up to date. - Social history:: Smoking status: Patient/guardian denies using tobacco. - Ebola Screening: : No symptoms or risks identified at this time. - Family history:: not pertinent. ROS: 19:43 Constitutional: Negative for fever, chills, and weight loss, Eyes: Negative for injury, jenelle pain, redness, and discharge, ENT: Negative for injury, pain, and discharge, Neck: Negative for injury, pain, and swelling, Cardiovascular: Negative for chest pain, palpitations, and edema, Respiratory: Negative for shortness of breath, cough, wheezing, and pleuritic chest pain, Back: Negative for injury and pain, : Negative for injury, bleeding, discharge, and swelling, MS/Extremity: Negative for injury and deformity, Skin: Negative for injury, rash, and discoloration, Neuro: Negative for headache, weakness, numbness, tingling, and seizure, Psych: Negative for depression, anxiety, suicide ideation, homicidal ideation, and hallucinations, Allergy/Immunology: Negative for hives, rash, and allergies, Endocrine: Negative for neck swelling, polydipsia, polyuria, polyphagia, and marked weight changes, Hematologic/Lymphatic: Negative for swollen nodes, abnormal bleeding, and unusual bruising. 19:43 Abdomen/GI: Positive for abdominal pain, of the right upper quadrant and right lower quadrant. Exam: 19:43 Constitutional: This is a well developed, well nourished patient who is awake, alert, jenelle and in no acute distress. Head/Face: Normocephalic, atraumatic. Eyes: Pupils equal round and reactive to light, extra-ocular motions intact. Lids and lashes normal. Conjunctiva and sclera are non-icteric and not injected. Cornea within normal limits. Periorbital areas with no swelling, redness, or edema. ENT: Nares patent. No nasal discharge, no septal abnormalities noted. Tympanic membranes are normal and external auditory canals are clear. Oropharynx with no redness, swelling, or masses, exudates, or evidence of obstruction, uvula midline. Mucous membranes moist. Neck: Trachea midline, no thyromegaly or masses palpated, and no cervical lymphadenopathy. Supple, full range of motion without nuchal rigidity, or vertebral point tenderness. No Meningismus. Chest/axilla: Normal chest wall appearance and motion. Nontender with no deformity. No lesions are appreciated. Cardiovascular: Regular rate and rhythm with a normal S1 and S2. No gallops, murmurs, or rubs. Normal PMI, no JVD. No pulse deficits. Respiratory: Lungs have equal breath sounds bilaterally, clear to auscultation and percussion. No rales, rhonchi or wheezes noted. No increased work of breathing, no retractions or nasal flaring. Back: No spinal tenderness. No costovertebral tenderness. Full range of motion. Male : Normal genitalia with no discharge or lesions. Skin: Warm, dry with normal turgor. Normal color with no rashes, no lesions, and no evidence of cellulitis. MS/ Extremity: Pulses equal, no cyanosis. Neurovascular intact. Full, normal range of motion. Neuro: Awake and alert, GCS 15, oriented to person, place, time, and situation. Cranial nerves II-XII grossly intact. Motor strength 5/5 in all extremities. Sensory grossly intact. Cerebellar exam normal. Normal gait. Psych: Awake, alert, with orientation to person, place and time. Behavior, mood, and affect are within normal limits. 19:43 Abdomen/GI: Inspection: distension, Bowel sounds: normal, Palpation: mild abdominal tenderness, moderate abdominal tenderness, in the right upper quadrant and right lower quadrant, Liver: no appreciated palpable abnormalities, Hernia: not appreciated. Vital Signs: 19:04 BP 124 / 82; Pulse 93; Resp 16; Temp 98.3(O); Pulse Ox 97% on R/A; Weight 121.56 kg ak1 (R); Height 5 ft. 9 in. (175.26 cm) (R); Pain 8/10; 19:24 BP 120 / 80; Pulse 88; Resp 17; Pulse Ox 96% on R/A; kr2 21:04 BP 120 / 64; Pulse 85; Resp 17; Pulse Ox 97% on R/A; kr2 23:55 BP 122 / 68; Pulse 84; Resp 17; Temp 98.4; Pulse Ox 99% on R/A; kr2 19:04 Body Mass Index 39.58 (121.56 kg, 175.26 cm) ak1 MDM: 19:24 Patient medically screened. [facility] 19:45 Data reviewed: vital signs, nurses notes, lab test result(s), EKG, radiologic studies, [facility] CT scan, plain films. 10/30 19:42 Order name: Basic Metabolic Panel [facility] 10/30 19:42 Order name: CBC with Diff [facility] 10/30 19:42 Order name: Ckmb [facility] 10/30 19:42 Order name: CPK [facility] 10/30 19:42 Order name: LFT's [facility] 10/30 19:42 Order name: Magnesium [facility] 10/30 19:42 Order name: NT PRO-BNP [facility] 10/30 19:42 Order name: PT-INR [facility] 10/30 19:42 Order name: Ptt, Activated [facility] 10/30 19:42 Order name: Troponin (emerg Dept Use Only) [facility] 10/30 19:42 Order name: Lipase [facility] 10/30 19:42 Order name: Stool Culture [facility] 10/30 19:42 Order name: Fecal Leukocyte Stain [facility] 10/30 19:42 Order name: Occult Blood [facility] 10/30 19:42 Order name: XRAY Chest (1 view); Complete Time: 22:45 [facility] 10/30 19:42 Order name: CT Abd/Pelvis - W/Contrast [facility] 10/30 19:42 Order name: CDIFF [facility] 10/30 20:09 Order name: CBC with Automated Diff; Complete Time: 20:35 [facility] 10/30 20:18 Order name: Protime (+INR); Complete Time: 20:35 [facility] 10/30 20:18 Order name: PTT, Activated Partial Thromb; Complete Time: 20:35 [facility] 10/30 20:24 Order name: Troponin (Emerg Dept Use Only); Complete Time: 20:35 [facility] 10/30 20:27 Order name: Basic Metabolic Panel; Complete Time: 20:35 [facility] 10/30 20:27 Order name: Liver (Hepatic) Function; Complete Time: 20:35 [facility] 10/30 20:27 Order name: Creatine Phosphokinase; Complete Time: 20:35 [facility] 10/30 20:27 Order name: CKMB Creatine Kinase MB; Complete Time: 20:35 [facility] 10/30 20:27 Order name: NT PRO-BNP; Complete Time: 20:35 [facility] 10/30 20:27 Order name: Magnesium; Complete Time: 20:35 [facility] 10/30 20:27 Order name: Lipase; Complete Time: 20:35 [facility] 10/30 20:46 Order name: Urine Dipstick--Ancillary (enter results); Complete Time: 21:51 10/30 19:42 Order name: EKG; Complete Time: 19:43 [facility] 10/30 19:42 Order name: Cardiac monitoring; Complete Time: 19:52 [facility] 10/30 19:42 Order name: EKG - Nurse/Tech; Complete Time: 19:52 [facility] 10/30 19:42 Order name: IV Saline Lock; Complete Time: 19:52 [facility] 10/30 19:42 Order name: Labs collected and sent; Complete Time: 19:52 [facility] 10/30 19:42 Order name: O2 Per Protocol; Complete Time: 19:52 [facility] 10/30 19:42 Order name: O2 Sat Monitoring; Complete Time: 19:52 [facility] 10/30 19:42 Order name: Urine Dipstick-Ancillary (obtain specimen); Complete Time: 20:54 [facility] 10/30 23:07 Order name: NPO EDMS Administered Medications: 20:00 Drug: Pepcid 20 mg Route: IVP; Site: right forearm; rv 20:53 Follow up: Response: No adverse reaction; Pain is decreased; Nausea is decreased kr2 20:01 Drug: Flagyl 500 mg Volume: 100 ml; Route: IVPB; Rate: 200 ml/hr; Infused Over: 30 rv mins; Site: right forearm; 20:40 Follow up: Response: No adverse reaction; IV Status: Completed infusion kr2 20:01 Drug: fentaNYL (PF) 25 mcg Route: IVP; Site: right forearm; rv 20:53 Follow up: Response: No adverse reaction; Pain is decreased kr2 20:01 Drug: Zofran 4 mg Route: IVP; Site: right forearm; rv 20:53 Follow up: Response: No adverse reaction; Nausea is decreased kr2 20:02 Drug: NS 0.9% 1000 ml Route: IV; Rate: 1 bolus; Site: right forearm; rv 21:30 Follow up: Response: No adverse reaction; IV Status: Completed infusion kr2 20:40 Drug: Cipro 400 mg Volume: 200 ml; Route: IVPB; Infused Over: 60 mins; Site: right kr2 forearm; 21:45 Follow up: Response: No adverse reaction; IV Status: Completed infusion kr2 21:30 Drug: NS 0.9% 1000 ml Route: IV; Rate: 125 ml/hr; Site: right forearm; kr2 23:57 Follow up: Response: No adverse reaction; IV Status: Infusion continued upon admission kr2 23:52 Not Given (Patient verbalizes comfort at time of transfer to unit): fentaNYL (PF) 25 kr2 mcg IVP once Disposition: 10/30/17 22:57 Hospitalization ordered by Chadwick Garner for Observation. Preliminary diagnosis are Abdominal tenderness, Diarrhea, unspecified, Acute appendicitis. - Bed requested for Telemetry/MedSurg (observation). - Status is Observation. kr2 - Condition is Stable. - Problem is new. - Symptoms have improved. UTI on Admission? No Signatures: Dispatcher [employer] EDMS Grace Bañuelos rg2 Sabas Enriquez MD MD cha Mickail, Joel, PA PA jmm Krenek, Amber, RN RN ak1 Kirti Mckeon RN RN kr2 Rodríguez Avila RN RN rv Corrections: (The following items were deleted from the chart) 23:31 22:57 Hospitalization Ordered by Chadwick Garner MD for Observation. Preliminary rg2 diagnosis is Abdominal tenderness; Diarrhea, unspecified; Acute appendicitis. Bed requested for Telemetry/MedSurg (observation). Status is Observation. Condition is Stable. Problem is new. Symptoms have improved. UTI on Admission? No. [facility] 23:57 23:31 10/30/2017 22:57 Hospitalization Ordered by Chadwick Garner MD for Observation. kr2 Preliminary diagnosis is Abdominal tenderness; Diarrhea, unspecified; Acute appendicitis. Bed requested for Telemetry/MedSurg (observation). Status is Observation. Condition is Stable. Problem is new. Symptoms have improved. UTI on Admission? No. rg2
[2017-10-30] MEDS ORDERED: ACETAMINOPHEN 500 MG TAB PO PRN (23:01)
[2017-10-30] MEDS ORDERED: ONDANSETRON 4 MG/2 ML VIAL IV PRN (23:01)
[2017-10-31] MEDS: NA CHLORIDE 0.9% 1,000 ML IV SCH ×3 (00:13→15:45)
[2017-10-31] MEDS: MORPHINE 4 MG/ML SYR IV PRN ×3 (00:17→08:30)
[2017-10-31] MEDS: METRONIDAZOLE 500mg IVPB 500 MG/100 ML BAG IV SCH ×4 (00:18→17:43)
[2017-10-31 01:20] VITALS: BMI 39.5
[2017-10-31 05:18] LABS: Absolute Lymphocytes (CBC) 2.2 K/uL (0.7-4.9); Absolute Monocytes 0.5 K/uL (0.1-1.3); Absolute Neutrophil 2.9 K/uL (1.8-8.0); Basophils % 0.4 % (0-1.3); Eosinophils % 5.9 % (0-4.4); Hematocrit 39.7 % (39.6-49.0); Lymphocytes % 36.6 % (15.3-44.8); MCV 85.2 fL (80-100); MPV 7.8 fL (7.6-11.3); Monocytes % 8.5 % (3.3-12.3); RBC Red Blood Cell Count 4.66 M/uL (4.33-5.43)
[2017-10-31 05:53] LABS: ALT/SGPT 58 U/L (12-78); AST/SGOT 28 U/L (15-37); Albumin 3.2 g/dL (3.4-5.0); Alkaline Phosphatase 77 U/L (45-117); BUN Blood Urea Nitrogen 12 mg/dL (7-18); Bicarbonate 25 mmol/L (21-32); Bilirubin Direct 0.1 mg/dL (0-0.2); Bilirubin Total 0.6 mg/dL (0.2-1.0); Glucose Level 128 mg/dL (74-106); Lipase 135 U/L (73-393); Potassium 3.8 mmol/L (3.5-5.1); Sodium Level 141 mmol/L (136-145)
--- NOTE | 2017-10-31 06:48 | RAD REPORT ---
EXAM DESCRIPTION: CT - Abdomen Pelvis W Contrast - 10/31/2017 4:39 am CLINICAL HISTORY: Chronic right lower quadrant pain A preliminary written report was provided at the time of the study, and the report was reviewed prio r to final dictation. COMPARISON: CT study July 2012 TECHNIQUE: Biphasic, helical CT imaging of the abdomen and pelvis was performed following 100 ml non -ionic IV contrast. Oral contrast was given. All CT scans are performed using dose optimization technique as appropriate and may include automated exposure control or mA/KV adjustment according to patient size. FINDINGS: No suspicious findings in the lung bases. The liver, spleen, and pancreas show no suspicious focal findings. Diffuse fatty infiltration is pres ent in the liver. Cholecystectomy clips are present with no biliary tree dilatation. Symmetric renal function is seen with no hydronephrosis or suspicious renal mass. No pyelonephritis o r acute renal parenchymal process. No urinary bladder abnormality. Adrenal glands are normal. No gastric dilatation or gastric wall thickening. No acute colon or small bowel finding seen. Appendi x is upper normal in size. Patient has a very long appendix. There is subtle stranding in the periapp endiceal fat. No oral contrast is seen within the lumen. No appendicolith confirmed. Findings are con cerning for a very early appendicitis without abscess or perforation. Mesenteric lymph nodes are pres ent in the right lower quadrant. No free air, free fluid or pneumatosis. No other inflammatory stranding. No hernia, mass or bulky lymphadenopathy. No suspicious bony findings. IMPRESSION: The appendix shows subtle evidence for early appendicitis. No perforation or other compl icating factor. Correlation is needed with clinical or laboratory findings for appendicitis. Diffuse fatty infiltration of the liver.
[2017-10-31] MEDS: CIPROFLOXACIN 400mg IV 400 MG/200 ML BAG IV SCH ×2 (08:30→20:23)
[2017-10-31] MEDS: FAMOTIDINE 20 MG/2 ML VIAL IV SCH ×2 (08:32→20:23)
--- NOTE | 2017-10-31 08:49 | P.HP ---
Date of Service: 10/31/17 PC: This patient presented emergency room with abdominal pain for diagnosis and treatment. HPC: Patient has been feeling unwell for the last 2-3 days. Has vague abdominal pain and describes it as severe. Located mainly in the upper abdomen but vague in nature. PMH: Diabetes, borderline hypertension PSHx: Previous laparoscopic cholecystectomy SOC: No known allergies SYS REVIEW: No cough, wheeze, shortness of breath. No chest pain or palpitations. Denies any urinary complaints. Prior to this have been relatively well. States he is good exercise tolerance. O/E awake alert, ill-looking male vital signs are stable HEENT: Not jaundice Chest: Air movement equal bilaterally ABD: Tender in the lower portion of the abdomen LOCO: Intact DATA: The scan suggestive of early appendix IMPRESSION: Abdominal pain PLAN: I will take him to the operating room for laparoscopic appendectomy. The risks of this procedure have been discussed. The possibility of bleeding, infection, injury to bowel, blood vessels, surrounding structures have been outlined. The possibility of a normal appendix were also explained. He understands and wants us to proceed.
[2017-10-31] MEDS ORDERED: PROPOFOL 200 MG/20 ML VIAL IV ONE ×2 (09:07→10:34)
[2017-10-31] MEDS ORDERED: MIDAZOLAM HCL 2 MG/2 ML INJ ONE (09:07)
[2017-10-31] MEDS ORDERED: LIDOCAINE 1% MPF 5 ML VIAL ONE (09:07)
[2017-10-31] MEDS ORDERED: FENTANYL CITR 100 MCG/2 ML ONE (09:07)
[2017-10-31] MEDS ORDERED: ROCURONIUM 50 MG/5 ML VIAL IV ONE (09:07)
[2017-10-31] MEDS ORDERED: SUCCINYLCHOLINE 20 MG/ML (10 ML) IV ONE (09:17)
[2017-10-31] MEDS ORDERED: BUPIVACAINE 0.5% PF 10 ML VIAL ONE (09:23)
[2017-10-31] MEDS ORDERED: GLYCOPYRROLATE 0.2 MG/ML SYR ONE (09:56)
[2017-10-31] MEDS ORDERED: KETOROLAC 30 MG/ML INJ ONE (09:56)
[2017-10-31] MEDS ORDERED: NEOSTIGMINE 1 MG/ML -5 ML SYRINGE ONE (09:56)
[2017-10-31] MEDS ORDERED: ONDANSETRON HCL 40 MG/20 ML VIAL ONE (09:56)
[2017-10-31] MEDS ORDERED: EPHEDRINE SULF 50 MG/10 ML SYR ONE (10:17)
[2017-10-31] MEDS ORDERED: LIDOCAINE 2% MPF 5 ML VIAL ONE (10:43)
--- NOTE | 2017-10-31 10:44 | P.OP ---
Preoperative diagnosis: Abdominal pain Postoperative diagnosis: the same Primary procedure: Laparoscopic appendectomy Estimated blood loss: Less than 20 cc Specimen: 1 appendix sent for histopathology Operative Technique: The patient was brought to the operating room, placed supine on the table. After the induction of adequate general endotracheal anesthesia, the area of the abdomen was prepped with a DuraPrep solution, and she was draped in the usual aseptic manner. A subumbilical incision was made. This was brought down through the skin and subcutaneous tissue. The Visiport was cavity and created pneumoperitoneum to approximately 12 mm of mercury. Under direct vision a 5 mm trocar was placed in the lower midline and another 5 mm in the right upper quadrant. The patient was then positioned in Trendelenburg and rolled to the left side. We were able to visualize right lower quadrant. We could see that there was some adhesions of the cecum to the anterior and lateral sidewall of the pelvis. These were taken down using blunt sharp dissection. It was necessary to mobilize the cecum off the lateral wall as this appendix appeared early in the retroperitoneum. It traced medially and then back into the true pelvis and out. A grasper was placed on the base of the appendix. These peritoneal coverings were then divided now finally delivered up into the operative field. The appendix was then gently dissected from the surrounding structures. The junction of the appendix with the with the cecum was identified. An opening was made in the mesentery of the appendix. The 10 mm trocar was now converted to a 12 with the camera moved to the right upper port with a 5 mm view. The linear Stapler was introduced into the peritoneal cavity. It was placed across the base of the appendix and fired. A vascular reload was then placed into the Stapler. The mesentery of the appendix was then taken down. The appendix having been was placed into an Endo-Catch, brought out through the umbilical port site. Attention was turned back towards the right lower quadrant. The area was gently irrigated with the saline solution. The effluent was aspirated. Attention was turned towards the umbilical trocar site. Using the endo-close and an absorbable sutures were placed to close the defect. The patient was now returned to the neutral position on the OR table. The pneumoperitoneum was collapsed, the umbilical sutures tied, and tamiko applied to the skin. At the end of the procedure the patient was in stable condition and sent to the recovery room. Needle sponge and instrument count were correct. 1 specimen was sent for histopathology. Sterile dressings had been applied. Complications: None Transferred to: Recovery Room Condition: Good
[2017-10-31] MEDS ORDERED: PROMETHAZINE 25 MG/ML VIAL ONE (10:57)
[2017-10-31] MEDS ORDERED: MORPHINE 4 MG/ML SYR IV PRN (11:39)
[2017-10-31] MEDS: HYDROCODONE/APAP 7.5/325 MG TAB PO PRN (17:49)
[2017-11-01] MEDS: METRONIDAZOLE 500mg IVPB 500 MG/100 ML BAG IV SCH ×2 (00:11→05:59)
[2017-11-01] MEDS: NA CHLORIDE 0.9% 1,000 ML IV SCH ×2 (00:11→06:00)
[2017-11-01] MEDS: HYDROCODONE/APAP 7.5/325 MG TAB PO PRN (00:49)
[2017-11-01 04:53] VITALS: TEMP 97.5
--- NOTE | 2017-11-01 09:58 | P.PN ---
Date of Service: 11/01/17 S: Patient says see he feels fantastic today. Pain is gone. Up ambulating, tolerating clear liquids, anxious to go home O: Incisions are clean, vital signs are stable A: Surgically stay P: Discharge home, seen next Sunday. was given a prescription for pain medicine yesterday.
[2017-11-01] MEDS: CIPROFLOXACIN 400mg IV 400 MG/200 ML BAG IV SCH (10:15)
[2017-11-01] MEDS: FAMOTIDINE 20 MG/2 ML VIAL IV SCH (10:15)
[2017-11-01 10:57] VITALS: O2SAT 95
[2017-11-01 13:12] VITALS: BP 115/66
== END 2017-11-01 11:50 | disposition home or self-care (01) ==
LOC: ER 18:48 → ERHOLD 22:59 → 2ND 23:34
PROVIDERS: ADMIT Surgery; ATTEND Surgery
PROC: 0DTJ4ZZ Resection of Appendix, Percutaneous Endoscopic Approach (ICD-10-PCS; principal; 2017-10-31 08:45)
DX: K35.80 Unspecified acute appendicitis (principal); E11.9 Type 2 diabetes mellitus without complications; Z79.84 Long term (current) use of oral hypoglycemic drugs; E78.00 Pure hypercholesterolemia, unspecified; I10 Essential (primary) hypertension; K21.9 Gastro-esophageal reflux disease without esophagitis
CPT/HCPCS: 36415; 71045; 74177; 80048; 80076; 81003; 82550; 82553; 82962; 83690; 83735; 83880; 84484; 85025; 85610; 85730; 88304; 96361; 96365; 96367; 96375; 99285; G0378; J0330; J0744; J2250; J2405; J2550; J2710; J3010; J7030; Q9967

== ENCOUNTER 2018-06-09 23:10 | Emergency (ER) | payer BC, OTHER ==
--- OUTSIDE RECORDS SUMMARY | 2018-06-09 23:12 | XMS REPORT ---
[...] End Status Dosage System Date Date Imitrex [facility] 79326170371 100 MG Orally Active 1 tablet ocne a day as as needed needed, may repeat 1 dose in 2 hours max of 200mg in 24 hours Dexilant [facility] 41354446820 60 MG Orally Active 1 capsule Once a day GlipiZIDE [facility] 52153677899 5 MG Orally Once Active 1 tablet a day Cozaar [facility] 66701969776 100 MG Orally Active 1 tablet Once a day Ambien [facility] 23196729571 10 MG Orally Active 1 tablet Once a day at bedtime as needed Aspirin Adult [facility] 25542466868 81 MG Orally Active 1 tablet Low Dose Once a day Zoloft [facility] 30139538800 100 MG Orally Active 1 tablet Once a day Metformin HCl [facility] 32971681094 1000 MG Orally Active 1 tablet Twice a day with meals Lipitor [facility] 34957886782 20 MG Orally Active 1 tablet Once a day Results Name Result Date Reference Range Unit Abnormality Flag HEMOGLOBIN A1c ----HEMOGLOBIN A1c 6.6 [id number] <5.7 % of total H Hgb CBC (INCLUDES DIFF/PLT) ----ABSOLUTE 380 50774783 15-500 cells/uL N EOSINOPHILS ----MCV 84.1 25330171 80.0-100.0 fL N ----HEMATOCRIT 44.0 15829926 38.5-50.0 % N ----ABSOLUTE 518 47848877 200-950 cells/uL N MONOCYTES ----MCHC 33.6 00842023 32.0-36.0 g/dL N ----ABSOLUTE 2000 79754454 850-3900 cells/uL N LYMPHOCYTES ----MCH 28.3 87133847 27.0-33.0 pg N ----ABSOLUTE 4365 47179564 4279-0225 cells/uL N NEUTROPHILS ----MONOCYTES 7.1 18040717 % N ----WHITE BLOOD 7.3 94760455 3.8-10.8 Thousand/uL N CELL COUNT ----LYMPHOCYTES 27.4 04958418 % N ----NEUTROPHILS 59.8 59534234 % N ----HEMOGLOBIN 14.8 49916521 13.2-17.1 g/dL N ----ABSOLUTE 37 08767904 0-200 cells/uL N BASOPHILS ----RED BLOOD CELL 5.23 80859209 4.20-5.80 Million/uL N COUNT ----BASOPHILS 0.5 90853931 % N ----MPV 10.0 50025914 7.5-12.5 fL N ----EOSINOPHILS 5.2 03571780 % N ----RDW 13.0 54028700 11.0-15.0 % N ----PLATELET COUNT 285 79792983 140-400 Thousand/uL N COMPREHENSIVE METABOLIC PANEL(CMP) ----ALBUMIN/GLOBULI 2.0 73667981 1.0-2.5 (calc) N N RATIO ----GLOBULIN 2.2 92820530 1.9-3.7 g/dL (calc) N ----ALKALINE 83 35673501 40-115 U/L N PHOSPHATASE ----BILIRUBIN, 0.4 07374473 0.2-1.2 mg/dL N TOTAL ----CHLORIDE 104 20170706 98-110 mmol/L N ----ALT 34 07331001 9-46 U/L N ----POTASSIUM 4.3 03883546 3.5-5.3 mmol/L N ----AST 18 20170706 10-40 U/L N ----SODIUM 137 84175354 135-146 mmol/L N ----BUN/CREATININE NOT APPLICABLE 20170706 6-22 (calc) RATIO ----eGFR 134 05339045 > OR=60 mL/min/1.73 [address] [place] [address] ----CALCIUM 9.5 53196348 8.6-10.3 mg/dL N ----CARBON DIOXIDE 26 20170706 20-31 mmol/L N ----ALBUMIN 4.4 10190412 3.6-5.1 g/dL N ----PROTEIN, TOTAL 6.6 01334214 6.1-8.1 g/dL N ----GLUCOSE 125 86034679 65-139 mg/dL N ----UREA NITROGEN 15 65751323 7-25 mg/dL N (BUN) ----CREATININE 0.77 90017418 0.60-1.35 mg/dL N ----eGFR NON-AFR. 116 67416422 > OR=60 mL/min/1.73 [address] [place] [address] LIPID PANEL WITH REFLEX TO DIRECT LDL ----NON HDL 127 30328490 <130 mg/dL N CHOLESTEROL (calc) ----LDL-CHOLESTEROL 96 48559944 mg/dL N (calc) ----CHOL/HDLC RATIO 3.6 37750195 <5.0 (calc) N ----HDL CHOLESTEROL 48 71392489 >40 mg/dL N ----TRIGLYCERIDES 212 42587158 <150 mg/dL H ----CHOLESTEROL, 175 28040796 <200 mg/dL N TOTAL Summary Purpose eClinicalWorks Submission
--- OUTSIDE RECORDS SUMMARY | 2018-06-09 23:12 | XMS REPORT ---
[...] End Status Dosage System Date Date Sulfamethoxazo [facility] [id number] 800-160 MG October 15, Oct 25, Active 1 tablet le-Trimethopri Orally Twice a 2018 2017 day Cozaar [facility] 41683579507 100 MG Orally Active 1 tablet Once a day Xanax [facility] 48901985462 0.5 MG Orally October 05, Active 1 tablet Twice a day 2017 Zoloft [facility] 66679357801 100 MG Orally Active 1 tablet Once a day Dexilant [facility] 07574251778 60 MG Orally Active 1 capsule Once a day Lipitor ND 53703822674 20 MG Orally Active 1 tablet Once a day Ambien [facility] 03184700497 10 MG Orally Active 1 tablet Once a day at bedtime as needed BusPIRone HCl ND 87798575538 7.5 MG Orally October 05, Active 1 tablet Twice a day 2017 Metformin HCl [facility] 89780831701 1000 MG Orally Active 1 tablet Twice a day with meals GlipiZIDE [facility] 33045961580 5 MG Orally Active 1 tablet twice a day Imitrex [facility] 83306741571 100 MG Orally Active 1 tablet ocne a day as as needed needed, may repeat 1 dose in 2 hours max of 200mg in 24 hours Aspirin Adult [facility] 33114775688 81 MG Orally Active 1 tablet Low Dose Once a day Results No Known Results Summary Purpose eClinicalWorks Submission
--- OUTSIDE RECORDS SUMMARY | 2018-06-09 23:12 | XMS REPORT ---
[...] Start End Date Status Dosage Date Dexilant [facility] 69512680868 60 MG Orally Once Active 1 capsule a day Results No Known Results Summary Purpose eClinicalWorks Submission
--- OUTSIDE RECORDS SUMMARY | 2018-06-09 23:12 | XMS REPORT ---
[...] End Status Dosage System Date Date Dexilant [facility] 51420128985 60 MG Orally Active 1 capsule Once a day Cozaar [facility] 42963575569 100 MG Orally Active 1 tablet Once a day Xanax [facility] 90635037654 0.5 MG Orally October 05, Active 1 tablet Twice a day 2017 BusPIRone HCl [facility] 44672174100 7.5 MG Orally October 05, Active 1 tablet Twice a day 2017 Lipitor [facility] 29047896597 20 MG Orally Active 1 tablet Once a day Imitrex ND 67948543162 100 MG Orally Active 1 tablet ocne a day as as needed needed, may repeat 1 dose in 2 hours max of 200mg in 24 hours Metformin HCl [facility] 41322659869 1000 MG Orally Active 1 tablet Twice a day with meals Ambien [facility] 92029763467 10 MG Orally Active 1 tablet Once a day at bedtime as needed Zoloft [facility] 40084656200 100 MG Orally Active 1 tablet Once a day GlipiZIDE [facility] 79147433989 5 MG Orally Active 1 tablet twice a day Aspirin Adult [facility] 50456636317 81 MG Orally Active 1 tablet Low Dose Once a day Results No Known Results Summary Purpose eClinicalWorks Submission
--- OUTSIDE RECORDS SUMMARY | 2018-06-09 23:12 | XMS REPORT ---
[...] Active Problem Cervical radiculopathy M54.12 Active Assessment Anxiety F41.9 Active Problem Tingling in extremities R20.2 Active Medications Medication Code Code Instructions Start End Date Status Dosage System Date Dexilant [facility] 14162068044 60 MG Orally Active 1 capsule Once a day Zoloft ND 18920537085 100 MG Orally Inactive 1 tablet Once a day Lexapro [facility] 13305029892 10 MG Orally Dec 07, Active 1 tablet Once a day 2017 Results No Known Results Summary Purpose eClinicalWorks Submission
--- OUTSIDE RECORDS SUMMARY | 2018-06-09 23:13 | XMS REPORT ---
:1980 Author Organization eClinicalWorks Care Team Providers Name Role Phone Esparza, Na Provider Role Unavailable Allergies, Adverse Reactions, Alerts Substance Reaction Event Type N.K.D.A. Info Not Available Non Drug Allergy Problems Problem Type Condition Code Onset Dates Condition Status Problem Cervicalgia M54.2 Active Problem Migraine G43.909 Active Problem Gastroesophageal reflux disease K21.9 Active Problem ADD (attention deficit disorder) F98.8 Active without hyperactivity Assessment Insomnia G47.00 Active Problem Hyperlipidemia E78.5 Active Problem Adult general medical exam Z00.00 Active Problem Insomnia G47.00 Active Problem Morbid obesity E66.01 Active Problem Hypertension I10 Active Problem Anxiety F41.9 Active Assessment Hyperlipidemia E78.5 Active Assessment Hypertension I10 Active Assessment ADD (attention deficit disorder) F98.8 Active without hyperactivity Assessment Anxiety F41.9 Active Problem Cervical radiculopathy M54.12 Active Assessment Diabetes mellitus, type 2 E11.9 Active Problem Tingling in extremities R20.2 Active Assessment Adult general medical exam Z00.00 Active Problem Diabetes mellitus, type 2 E11.9 Active Medications Medication Code Code Instructions Start End Status Dosage System Date Date Lexapro [facility] 69754808509 10 MG Orally Dec 07, Active 1 tablet Once a day 2017 Aspirin Adult [facility] 22417177375 81 MG Orally Active 1 tablet Low Dose Once a day Ambien [facility] 95665651145 10 MG Orally Active 1 tablet Once a day at bedtime as needed Cozaar [facility] 42706458045 100 MG Orally Active 1 tablet Once a day Imitrex [facility] 81873471486 100 MG Orally Active 1 tablet ocne a day as as needed needed, may repeat 1 dose in 2 hours max of 200mg in 24 hours Metformin HCl [facility] 48056761609 1000 MG Orally Active 1 tablet Twice a day with meals Lipitor ND 83524503933 20 MG Orally Active 1 tablet Once a day Lexapro [facility] 02653560646 20 MG Orally Active 1 tablet Once a day Xanax [facility] 63700776216 0.5 MG Orally Active 1 tablet Twice a day Keflex [facility] 66025850462 500 MG Orally Active 1 capsule every 6 hrs Dexilant [facility] 25776478854 60 MG Orally Active 1 capsule Once a day BusPIRone HCl [facility] 47607577094 7.5 MG Orally October 05, Active 1 tablet Twice a day 2017 GlipiZIDE [facility] 33992439610 5 MG Orally once Active 1 tablet a day with largest meal Results No Known Results Summary Purpose eClinicalWorks Submission
[2018-06-09 23:56] LABS: Protime INR 0.89
[2018-06-10 00:03] LABS: Absolute Lymphocytes (CBC) 2.6 K/uL (0.7-4.9); Absolute Monocytes 0.6 K/uL (0.1-1.3); Absolute Neutrophil 3.9 K/uL (1.8-8.0); BUN Blood Urea Nitrogen 13 mg/dL (7-18); Basophils % 0.3 % (0-1.3); Bicarbonate 29 mmol/L (21-32); Eosinophils % 3.3 % (0-4.4); Glucose Level 128 mg/dL (74-106); Hematocrit 43.6 % (39.6-49.0); MPV 8.3 fL (7.6-11.3); RBC Red Blood Cell Count 5.15 M/uL (4.33-5.43); Sodium Level 141 mmol/L (136-145)
[2018-06-10] MEDS ORDERED: ALTEPLASE 100 ML IV ONE (00:11)
[2018-06-10] MEDS ORDERED: NA CHLORIDE 0.9% 50 ML IV ONE (00:42)
--- NOTE | 2018-06-10 02:43 | ER ---
Nurse's Notes [facility] Name: Mitch Lobo Age: 37 yrs Sex: Male : 1980 Arrival Date: 06/09/2018 Time: 23:11 Bed 2 Private MD: Diagnosis: Cerebral infarction Presentation: 06/09 23:23 Presenting complaint: states: she went to check on pt tonight at approx 2300 while bb he was out working on his vehicle and pt told her he did not feel good and she noticed pt had left facial droop and she brought him to the ED last known well time was at approx 2000 when pt went out to the garage. Transition of care: patient was not received from another setting of care. An acute neurological deficit is present. The charge nurse has been notified. The patient has been moved to a treatment area. Onset of symptoms was June 09, 2018. Risk Assessment: Do you want to hurt yourself or someone else? Patient reports no desire to harm self or others. Initial Sepsis Screen: Does the patient meet any 2 criteria? No. Patient's initial sepsis screen is negative. Does the patient have a suspected source of infection? No. Patient's initial sepsis screen is negative. Care prior to arrival: None. 23:23 Method Of Arrival: Ambulatory bb 23:23 Acuity: JOSE M 1 bb 23:23 Pre-hospital glucose is not applicable to this patient. ea Triage Assessment: 23:26 The onset of the patients symptoms was June 09, 2018 at 23:00. bb Stroke Activation: Symptom onset < 3 hours Physician: Stroke Attending; Name: ; Notified At: ; Arrived At: Physician: Chief Stroke Resident; Name: ; Notified At: ; Arrived At: Physician: Stroke Resident; Name: ; Notified At: ; Arrived At: Physician: ED Attending; Name: Kailyn; Notified At: ; Arrived At: Physician: ED Resident; Name: ; Notified At: ; Arrived At: Historical: - Allergies: 23:26 No Known Allergies; bb - Immunization history:: Adult Immunizations unknown. - Social history:: Smoking status: Patient/guardian denies using tobacco. - Ebola Screening: : No symptoms or risks identified at this time. Screenin:39 Abuse screen: Denies threats or abuse. Nutritional screening: No deficits noted. ea Tuberculosis screening: No symptoms or risk factors identified. Fall Risk IV access (20 points). Assessment: 23:38 VAN Scoring: Arm Drift: Minor drift The patient has not been NPO before screening. The ea patient is alert, and able to follow commands. The patient does not exhibit slurred or garbled speech. The patient is not exhibiting difficulty speaking. The patient does not exhibit difficulty understanding words. The patient is able to swallow own secretions with no drooling or need for suction. The patient did not tolerate one teaspoon of water. Drooling, immediate coughing, gurgling, or clearing of the throat was noted. Bedside swallow screening discontinued. Patient kept NPO until cleared by Speech Therapy or Physician. The patient failed the bedside swallow screening. The patient will be kept NPO until cleared by Speech Therapy or Physician. Provider notified of bedside swallow screening results: Kendall Avina MD. eval stopped, pt unable to tolerate teaspoon. T-PA (Activase) Screening: Indications: Definite evidence of stroke, ischemic, embolic, or hypertensive: Yes. 23:38 General: Appears in no apparent distress. Pain: Denies pain. Neuro: Level of ea Consciousness is awake, alert, obeys commands, Oriented to person, place, time, situation, Weakness in left arm(s) leg(s) Speech is normal, Facial droop on left. Cardiovascular: Patient's skin is warm and dry. Respiratory: Airway is patent Respiratory effort is even, unlabored, Respiratory pattern is regular, symmetrical. Derm: Skin is pink, warm \T\ dry. 23:38 Reassessment: Pt taken to CT. ea 06/10 00:00 Reassessment: Patient and/or family updated on plan of care and expected duration. Pain ea level reassessed. Patient is alert, oriented x 3, equal unlabored respirations, skin warm/dry/pink. 01:18 Reassessment: Patient and/or family updated on plan of care and expected duration. Pain ea level reassessed. Patient is alert, oriented x 3, equal unlabored respirations, skin warm/dry/pink. Pt reports his numbness has subsided. 02:00 Reassessment: Patient and/or family updated on plan of care and expected duration. Pain ea level reassessed. Patient is alert, oriented x 3, equal unlabored respirations, skin warm/dry/pink. 03:35 Reassessment: Patient and/or family updated on plan of care and expected duration. Pain ea level reassessed. Report called to Mary GARZA at [facility] neuro unit. 04:37 Reassessment: Patient and/or family updated on plan of care and expected duration. Pain ea level reassessed. Patient is alert, oriented x 3, equal unlabored respirations, skin warm/dry/pink. [facility] at facility for transfer, report given. Pt taken via stretcher per EMS, pt tolerating well. Vital Signs: 06/09 23:26 BP 126 / 96; Pulse 87; Resp 20 S; Temp 97.9(O); Pulse Ox 99% on R/A; Weight 121.11 kg; bb Height 5 ft. 10 in. (177.80 cm); 06/10 00:28 Weight 108.9 kg (M); ea 00:33 BP 131 / 83; Pulse 82; Resp 18; Pulse Ox 99% on R/A; ea 01:33 BP 127 / 81; Pulse 77; Resp 19; Pulse Ox 99% on R/A; ea 00:28 Body Mass Index 34.45 (108.90 kg, 177.80 cm) ea NIH Stroke Scale Scores: 06/09 23:38 NIHSS Score: 6 ea 06/10 00:11 NIHSS Score: 6 ED Course: 06/09 23:11 Patient arrived in ED. am2 23:17 Kendall Avina MD is Attending Physician. gs 23:25 Triage completed. bb 23:26 Arm band placed on Patient placed in an exam room, on a stretcher, on registered nurse cardiac telemetry, bb on pulse oximetry. Family accompanied patient. 23:30 Patient has correct armband on for positive identification. Placed in gown. Bed in low ea position. Call light in reach. Side rails up X2. 23:30 Inserted saline lock: 20 gauge in right antecubital area, using aseptic technique. ea Blood collected. 23:35 Starr Lennon, KAYLA is Primary Nurse. ea 23:40 CT Stroke Brain w/o Contrast In Process Unspecified. EDMS 23:42 X-ray completed. Portable x-ray completed in exam room. Patient tolerated procedure kw well. 23:46 Stroke CXR 1 View In Process Unspecified. EDMS 06/10 00:28 Inserted saline lock: 20 gauge in left antecubital area, using aseptic technique. ea 01:[address] via stretcher. kw1 01:11 CT completed. Patient tolerated procedure well. Patient moved back from CT. kw1 01:[address] In Process Unspecified. EDMS 01:[address] In Process Unspecified. EDMS 03:39 Patient transferred, IV remains in place. ea 03:40 No provider procedures requiring assistance completed. ea Administered Medications: 00:33 Drug: ACTIvase {Co-Signature: jd3 (Jamal Oconnor RN).} Route: IV Thrombolytics; Rate: ea calculated rate; Infused Over: 60 mins; 01:32 Follow up: Response: No adverse reaction; Other; symptoms improved ea 01:33 Follow up: Response: No adverse reaction ea Outcome: 02:43 ER care complete, transfer ordered by MD. gs 03:00 Instructed on the need for transfer. ea 04:38 Transferred by ground EMS to [facility], Transfer form completed. ea Note: Radiology CD sent with patient 04:38 Condition: stable 04:39 Patient left the ED. ea NIH Stroke Scale - NIH Stroke Score Date: 06/09/2018 Time: 23:38 Total Score = 6 1a. Level of Consciousness (LOC) - 0(Alert) 1b. Level of Consciousness (LOC) (Year \T\ Age) - 0(Both) 1c. LOC Commands (Open \T\ Closes Eyes/Court Deputy) - 0(Both) 2. Best Gaze (Lateral Gaze Paresis) - 0(Normal) 3. Visual Field Loss - 0(No visual loss) 4. Facial Palsy - 2(Partial paralysis) 5a. Left Arm: Motor (10-second hold) - 2(Drift, some effort against gravity) 5b. Right Arm: Motor (10-second hold) - 0(No drift) 6a. Left Leg: Motor (5-second hold - always test supine) - 2(Drift, some effort against gravity) 6b. Right Leg: Motor (5-second hold - always test supine) - 0(No drift) 7. Limb Ataxia (finger/nose \T\ heel/cartagena - test with eyes open) - 0(Absent) 8. Sensory Loss (pinprick arms/legs/face) - 0(Normal) 9. Best Language: Aphasia (description/naming/reading) - 0(No aphasia) 10. Dysarthria (speech clarity - read or repeat words) - 0(Normal) 11. Extinction and Inattention (visual/tactile/auditory/spatial/personal) - 0(No abnormality) Initials: awa NIH Stroke Scale - NIH Stroke Score Date: 06/10/2018 Time: 00:11 Total Score = 6 1a. Level of Consciousness (LOC) - 0(Alert) 1b. Level of Consciousness (LOC) (Year \T\ Age) - 0(Both) 1c. LOC Commands (Open \T\ Closes Eyes/Court Deputy) - 0(Both) 2. Best Gaze (Lateral Gaze Paresis) - 0(Normal) 3. Visual Field Loss - 0(No visual loss) 4. Facial Palsy - 2(Partial paralysis) 5a. Left Arm: Motor (10-second hold) - 2(Drift, some effort against gravity) 5b. Right Arm: Motor (10-second hold) - 0(No drift) 6a. Left Leg: Motor (5-second hold - always test supine) - 0(No drift) 6b. Right Leg: Motor (5-second hold - always test supine) - 0(No drift) 7. Limb Ataxia (finger/nose \T\ heel/cartagena - test with eyes open) - 1(Present in one limb) 8. Sensory Loss (pinprick arms/legs/face) - 1(Mild to moderate loss) 9. Best Language: Aphasia (description/naming/reading) - 0(No aphasia) 10. Dysarthria (speech clarity - read or repeat words) - 0(Normal) 11. Extinction and Inattention (visual/tactile/auditory/spatial/personal) - 0(No abnormality) Initials: Signatures: Dispatcher [employer] Guillermina Butts RN RN bb Whitley, Kimberlee kw Moreno, Amanda am2 Starr Lennon RN RN ea Starr, Gregory, MD MD Maryann Wright1 Jamal Oconnor RN jd3
--- NOTE | 2018-06-10 02:44 | EDPHYS ---
Physician Documentation [facility] Name: Mitch Lobo Age: 37 yrs Sex: Male : 1980 Arrival Date: 06/09/2018 Time: 23:11 Bed 2 Private MD: ED Physician Kendall Avina HPI: 06/10 02:38 This 37 yrs old Male presents to ER via Ambulatory with complaints of Facial gs Droop, L side Weakness. 02:38 Onset: The symptoms/episode began/occurred just prior to arrival, at 22:30. Context: gs occurred at home. Associated signs and symptoms: Pertinent negatives: altered mental status, seizure, syncope, visual field changes. Severity of symptoms: At their worst the symptoms were moderate in the emergency department the symptoms are unchanged. Patient's baseline: Neuro: alert and fully oriented, Motor: no deficits, Ambulation: walks without assistance, Speech: normal, The patient has a previous history of TIA. Current symptoms: paralysis or paresis, of the left cheek and mouth, that is moderate. The patient has experienced a previous episode. Historical: - Allergies: 06/09 23:26 No Known Allergies; bb - Immunization history:: Adult Immunizations unknown. - Social history:: Smoking status: Patient/guardian denies using tobacco. - Ebola Screening: : No symptoms or risks identified at this time. ROS: 06/10 02:38 All other systems are negative. gs Exam: 02:38 Head/Face: Normocephalic, atraumatic. Eyes: Pupils equal round and reactive to light, gs extra-ocular motions intact. Lids and lashes normal. Conjunctiva and sclera are non-icteric and not injected. Cornea within normal limits. Periorbital areas with no swelling, redness, or edema. ENT: Nares patent. No nasal discharge, no septal abnormalities noted. Tympanic membranes are normal and external auditory canals are clear. Oropharynx with no redness, swelling, or masses, exudates, or evidence of obstruction, uvula midline. Mucous membranes moist. Neck: Trachea midline, no thyromegaly or masses palpated, and no cervical lymphadenopathy. Supple, full range of motion without nuchal rigidity, or vertebral point tenderness. No Meningismus. Chest/axilla: Normal chest wall appearance and motion. Nontender with no deformity. No lesions are appreciated. Cardiovascular: Regular rate and rhythm with a normal S1 and S2. No gallops, murmurs, or rubs. Normal PMI, no JVD. No pulse deficits. Respiratory: Lungs have equal breath sounds bilaterally, clear to auscultation and percussion. No rales, rhonchi or wheezes noted. No increased work of breathing, no retractions or nasal flaring. Abdomen/GI: Soft, non-tender, with normal bowel sounds. No distension or tympany. No guarding or rebound. No evidence of tenderness throughout. Back: No spinal tenderness. No costovertebral tenderness. Full range of motion. Skin: Warm, dry with normal turgor. Normal color with no rashes, no lesions, and no evidence of cellulitis. MS/ Extremity: Pulses equal, no cyanosis. Neurovascular intact. Full, normal range of motion. 02:38 Constitutional: The patient appears alert, awake, in obvious distress, severely distressed. 02:38 ECG was reviewed by the Attending Physician. 02:40 Neuro: Orientation: to person, place, time \T\ situation. Cranial nerves: facial droop gs noted on left, with forehead spared. Cerebellar function: dysmetria is noted on the left, Motor: strength is 4/5 in the left arm. Vital Signs: 06/09 23:26 BP 126 / 96; Pulse 87; Resp 20 S; Temp 97.9(O); Pulse Ox 99% on R/A; Weight 121.11 kg; bb Height 5 ft. 10 in. (177.80 cm); 06/10 00:28 Weight 108.9 kg (M); ea 00:33 BP 131 / 83; Pulse 82; Resp 18; Pulse Ox 99% on R/A; ea 01:33 BP 127 / 81; Pulse 77; Resp 19; Pulse Ox 99% on R/A; ea 00:28 Body Mass Index 34.45 (108.90 kg, 177.80 cm) NIH Stroke Scale Scores: 06/09 23:38 NIHSS Score: 6 ea 06/10 00:11 NIHSS Score: 6 gs MDM: 06/09 23:25 Patient medically screened. 06/10 02:40 Data reviewed: vital signs, nurses notes. Response to treatment: the patient's symptoms gs have markedly improved after treatment. ED course: ddx- cva,tia,ich,sah , r/b given for tpa, tpa given per protocol. 06/09 23:25 Order name: Basic Metabolic Panel; Complete Time: 00:08 06/09 23:25 Order name: CBC with Diff; Complete Time: 00:08 06/09 23:25 Order name: Protime (+inr); Complete Time: 00:08 06/09 23:25 Order name: CT Stroke Brain w/o Contrast 06/09 23:25 Order name: Stroke CXR 1 View 06/10 00:32 Order name: Neck Angio CT 06/09 23:25 Order name: EKG; Complete Time: 23:26 06/09 23:25 Order name: Cardiac monitoring; Complete Time: 01:37 06/09 23:25 Order name: EKG - Nurse/Tech; Complete Time: : 06/09 23:25 Order name: IV Saline Lock; Complete Time: : 06/09 23:25 Order name: Labs collected and sent; Complete Time: : 06/10 00:32 Order name: Head Angio CT 06/09 23:25 Order name: NPO; Complete Time: 01: 06/09 23:25 Order name: O2 Per Protocol; Complete Time: : 06/09 23:25 Order name: O2 Sat Monitoring; Complete Time: : 06/09 23:25 Order name: Stroke Swallow Screen; Complete Time: : gs EC:38 Rate is 83 beats/min. Rhythm is regular. ND interval is normal. QRS interval is normal. gs No Q waves. T waves are Normal. No ST changes noted. Clinical impression: NSR w/ Non-specific ST/T Changes. Interpreted by me. Administered Medications: 00:33 Drug: ACTIvase {Co-Signature: jd3 (Jamal Oconnor RN).} Route: IV Thrombolytics; Rate: ea calculated rate; Infused Over: 60 mins; 01:32 Follow up: Response: No adverse reaction; Other; symptoms improved ea 01:33 Follow up: Response: No adverse reaction ea Disposition: 06/10/18 02:43 Transfer ordered to [facility]. Diagnosis is Cerebral infarction. - Reason for transfer: Higher level of care. - Accepting physician is daisy. - Condition is Stable. - Problem is new. - Symptoms have improved. Critical care time excluding procedures: 02:40 Critical care time: Bedside Care: 10 minutes, Consultation: 10 minutes, Family gs Intervention: 10 minutes. Total time: 30 minutes NIH Stroke Scale - NIH Stroke Score Date: 06/09/2018 Time: 23:38 Total Score = 6 1a. Level of Consciousness (LOC) - 0(Alert) 1b. Level of Consciousness (LOC) (Year \T\ Age) - 0(Both) 1c. LOC Commands (Open \T\ Closes Eyes/Media Traffic Manager) - 0(Both) 2. Best Gaze (Lateral Gaze Paresis) - 0(Normal) 3. Visual Field Loss - 0(No visual loss) 4. Facial Palsy - 2(Partial paralysis) 5a. Left Arm: Motor (10-second hold) - 2(Drift, some effort against gravity) 5b. Right Arm: Motor (10-second hold) - 0(No drift) 6a. Left Leg: Motor (5-second hold - always test supine) - 2(Drift, some effort against gravity) 6b. Right Leg: Motor (5-second hold - always test supine) - 0(No drift) 7. Limb Ataxia (finger/nose \T\ heel/cartagena - test with eyes open) - 0(Absent) 8. Sensory Loss (pinprick arms/legs/face) - 0(Normal) 9. Best Language: Aphasia (description/naming/reading) - 0(No aphasia) 10. Dysarthria (speech clarity - read or repeat words) - 0(Normal) 11. Extinction and Inattention (visual/tactile/auditory/spatial/personal) - 0(No abnormality) Initials: NIH Stroke Scale - NIH Stroke Score Date: 06/10/2018 Time: 00:11 Total Score = 6 1a. Level of Consciousness (LOC) - 0(Alert) 1b. Level of Consciousness (LOC) (Year \T\ Age) - 0(Both) 1c. LOC Commands (Open \T\ Closes Eyes/Media Traffic Manager) - 0(Both) 2. Best Gaze (Lateral Gaze Paresis) - 0(Normal) 3. Visual Field Loss - 0(No visual loss) 4. Facial Palsy - 2(Partial paralysis) 5a. Left Arm: Motor (10-second hold) - 2(Drift, some effort against gravity) 5b. Right Arm: Motor (10-second hold) - 0(No drift) 6a. Left Leg: Motor (5-second hold - always test supine) - 0(No drift) 6b. Right Leg: Motor (5-second hold - always test supine) - 0(No drift) 7. Limb Ataxia (finger/nose \T\ heel/cartagena - test with eyes open) - 1(Present in one limb) 8. Sensory Loss (pinprick arms/legs/face) - 1(Mild to moderate loss) 9. Best Language: Aphasia (description/naming/reading) - 0(No aphasia) 10. Dysarthria (speech clarity - read or repeat words) - 0(Normal) 11. Extinction and Inattention (visual/tactile/auditory/spatial/personal) - 0(No abnormality) Initials: Signatures: Dispatcher [employer] EDGuillermina Wilkins RN RN bb Antunez, Elena, RN RN ea Starr, Gregory, MD MD gs Jonathon Davies RN jd3 Corrections: (The following items were deleted from the chart) 04:39 02:43 06/10/2018 02:43 Transfer ordered to [facility]. ea Diagnosis is Cerebral infarction. Reason for transfer: Higher level of care. Accepting physician is daisy. Condition is Stable. Problem is new. Symptoms have improved. gs
[2018-06-10 05:45] VITALS: TEMP 97.9; O2SAT 99
[2018-06-10 05:48] VITALS: BP 127/81
--- NOTE | 2018-06-10 07:28 | EKG ---
Test Date: 2018-06-09 Test Time: 23:41:23 Silk Screen Cutter: MEASUREMENT RESULTS: Intervals: Rate: 83 [place]: 166 QRSD: 92 QT: 372 QTc: 437 [place]: P: 38 [place]: 166 QRS: 42 T: 17 INTERPRETIVE STATEMENTS: Normal sinus rhythm Normal ECG Compared to ECG 07/15/2017 23:14:40 Sinus bradycardia no longer present Myocardial infarct finding no longer present Electronically Signed On 06-10-18 07:27:36 CDT by Jeromy Joshi
--- NOTE | 2018-06-10 08:30 | RAD REPORT ---
EXAM DESCRIPTION: Makenzie Single View06/09/2018 11:45 pm CLINICAL HISTORY: Chest pain COMPARISON: August 2017 FINDINGS: The lungs appear clear of acute infiltrate. The heart is normal size IMPRESSION: No acute abnormalities displayed
--- NOTE | 2018-06-10 11:44 | RAD REPORT ---
EXAM DESCRIPTION: CT - Neck Angio - 06/10/2018 2:09 am CLINICAL HISTORY: The patient is 37 years old and is Male; PAIN TECHNIQUE: Axial computed tomographic angiography images of the neck with intravenous contrast using CT angiography protocol. Sagittal and coronal reformatted images were created and reviewed. Sagi ttal and coronal reformatted images were created and reviewed. This CT exam was performed using one or more of the following dose reduction techniques: automated exposure control, adjustment of the mA and/or kV according to patient size, and/or use of iterative reconstruction technique. MIP recon structed images were created and reviewed. COMPARISON: No relevant prior studies available. FINDINGS: VASCULATURE: Right common carotid artery: Unremarkable. No significant stenosis. No dissection or occlusi on. Right internal carotid artery: Unremarkable. Extracranial segment is patent with no significan t stenosis. No dissection or occlusion. Right external carotid artery: Unremarkable. No occlusion. Right vertebral artery: Hypoplastic right vertebral artery. No significant stenosis. No dissec tion or occlusion. Left common carotid artery: Unremarkable. No significant stenosis. No dissection or occlusio n. Left internal carotid artery: Unremarkable. Extracranial segment is patent with no significant stenosis. No dissection or occlusion. Left external carotid artery: Unremarkable. No occlusion. Left vertebral artery: Unremarkable. No significant stenosis. No dissection or occlusion. NECK: Bones/joints: No acute fracture. No dislocation. Minimal multilevel degenerative change of the spine is present. Soft tissues: Unremarkable as visualized. No mass. CAROTID STENOSIS REFERENCE USING NASCET CRITERIA: % ICA stenosis = (1 - narrowest ICA diameter/diameter of distal cervical ICA) x 100. Mild - Moderate - 50-69% stenosis. Severe - 70-94% stenosis. Near occlusion - 95-99% stenosis. Occluded - 100% stenosis. IMPRESSION: Examination is limited secondary to venous contamination. Unremarkable neck CTA. Electronically signed by: Nancy oWod MD 06/10/2018 1:28 AM CDT Due to temporary technical issues with the PACS/Fluency reporting system, reports are being signed by the in house radiologist as a courtesy to ensure prompt reporting. The interpreting radiologist is f ully responsible for the content of the report.
--- NOTE | 2018-06-10 11:55 | RAD REPORT ---
EXAM DESCRIPTION: CT - Ct Stroke Brain Wo Cont - 06/10/2018 12:33 am CLINICAL HISTORY: The patient is 37 years old and is Male; DECLINING STATE TECHNIQUE: Axial computed tomography images of the head/brain without intravenous contrast. Sagitt al and coronal reformatted images were created and reviewed. This CT exam was performed using one o r more of the following dose reduction techniques: automated exposure control, adjustment of the mA and/or kV according to patient size, and/or use of iterative reconstruction technique. COMPARISON: No relevant prior studies available. FINDINGS: Brain: Unremarkable. The franz-white matter differentiation is preserved . No hemorrhag e. No significant white matter disease. No edema. No extra-axial fluid collections. Ventricles: Unremarkable. No ventriculomegaly. Bones/joints: No acute fracture. Soft tissues: Unremarkable. Sinuses: Unremarkable as visualized. No acute sinusitis. Mastoid air cells: Unremarkable as visualized. No mastoid effusion. IMPRESSION: No acute intracranial findings. ASPECT Score: Caudate: 1 Lentiform: 1 Insula: 1 Internal Capsule: 1 M1: 1 M2: 1 M3: 1 M4: 1 M5: 1 M6: 1 Total ASPECT Score: 10 Electronically signed by: Nancy Wood MD 06/09/2018 11:46 PM CDT Due to temporary technical issues with the PACS/Fluency reporting system, reports are being signed by the in house radiologist as a courtesy to ensure prompt reporting. The interpreting radiologist is f ully responsible for the content of the report. ADDENDUM: THIS REPORT CONTAINS FINDINGS THAT MAY BE CRITICAL TO PATIENT CARE: The findings were verbally discussed via telephone conference with Dr. Kendall Avina by Dr. Alen Wood on 11:52 PM CDT .The results were acknowledged and understood. Electronically signed by: Nancy Wood MD 06/09/2018 11:52 PM CDT End of Addendum
--- NOTE | 2018-06-10 12:03 | RAD REPORT ---
EXAM DESCRIPTION: CT - Head angio - 06/10/2018 2:08 am CLINICAL HISTORY: The patient is 37 years old and is Male; cva TECHNIQUE: Axial computed tomographic angiography images of the head with intravenous contrast using CT angiography protocol. Sagittal and coronal reformatted images were created and reviewed. Sagi ttal and coronal reformatted images were created and reviewed. This CT exam was performed using one or more of the following dose reduction techniques: automated exposure control, adjustment of the mA and/or kV according to patient size, and/or use of iterative reconstruction technique. MIP recon structed images were created and reviewed. COMPARISON: No relevant prior studies available. FINDINGS: Limitations: Examination is limited secondary to venous contamination. Right internal carotid artery: No acute findings. Intracranial segment is patent with no signi ficant stenosis. No aneurysm. Right anterior cerebral artery: Unremarkable. No occlusion or significant stenosis. No aneur ysm. Right middle cerebral artery: Grossly unremarkable. No definite or significant stenosis. No aneurysm. Right posterior cerebral artery: Unremarkable. No occlusion or significant stenosis. No aneu rysm. Right vertebral artery: Unremarkable as visualized. Left internal carotid artery: No acute findings. Intracranial segment is patent with no signif icant stenosis. No aneurysm. Left anterior cerebral artery: Unremarkable. No occlusion or significant stenosis. No aneury sm. Left middle cerebral artery: Grossly unremarkable. No definite occlusion or significant stenos is. No aneurysm. Left posterior cerebral artery: Unremarkable. No occlusion or significant stenosis. No aneur ysm. Left vertebral artery: Unremarkable as visualized. Basilar artery: Unremarkable. No significant stenosis. No occlusion. No aneurysm. IMPRESSION: No obvious abnormality on the CTA of the head. However, examination is limited secondary to venous contamination/timing of contrast. Specifically, the middle cerebral arteries bilaterally M 2 -M4 segments. Electronically signed by: Nancy Wood MD 06/10/2018 2:00 AM CDT Due to temporary technical issues with the PACS/Fluency reporting system, reports are being signed by the in house radiologist as a courtesy to ensure prompt reporting. The interpreting radiologist is f ully responsible for the content of the report.
== END 2018-06-10 04:39 | disposition short-term general hospital (02) ==
LOC: ER 23:10
DX: I63.9 Cerebral infarction, unspecified (principal); R29.706 NIHSS score 6
CPT/HCPCS: 36415; 70450; 70496; 70498; 71045; 80048; 85025; 85610; 92977; 93005; 99291; 99292; J2997; Q9967

== ENCOUNTER 2019-12-09 20:58 | Emergency (ER) | payer OTHER ==
--- OUTSIDE RECORDS SUMMARY | 2019-12-09 21:01 | XMS REPORT ---
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 Problem ADD (attention deficit disorder) F98.8 Active without hyperactivity Problem Gastroesophageal reflux disease K21.9 Active Problem Hospital discharge follow-up Z09 Active Problem Adult general medical exam Z00.00 A ctive Problem Migraine G43.909 Active Assessment ADD (attention deficit disorder) F98.8 Active without hyperactivity Problem Anxiety F41.9 Active Problem Hypertension I10 Active Problem Morbid obesity E66.01 Active Problem Hyperlipidemia E78.5 Active Problem Insomnia G47.00 Active Problem Cervical radiculopathy M54.12 Activ e Medications Medication Code System Code Instructions Start End Date Status Dos age Date Vyvalbin [facility] [place] [id number] 59 MG Orally Nov 06, Active 1 capsu le Once a day 2019 in the morning Results No Known Results Summary Purpose [employer] Submission
--- OUTSIDE RECORDS SUMMARY | 2019-12-09 21:01 | XMS REPORT | Continuity of Care Document ---
:1980 Author Organization [facility] t Address [address] [place] [address] Care Team Providers Name Role Phone Zhane Primary Care Physician Unavailable DR KARI Attending Clinician Unavailable CHRISTA EDWARDS Attending Clinician Unavailable DR KARI Admitting Clinician Unavailable CHRISTA EDWARDS Admitting Clinician Unavailable Problems Condition Condition Condition Status Onset Resolution Last Treating Co mments Source Name Details Category Date Date Treatment Clinician Date Stroke Stroke Disease Active [facility] ([facility] (cerebrum) 3-18 Candice kes - 00:00: Medical 00 Center Type 2 Type [address] [facility] diabetes diabetes 3-18 [facility] - mellitus, mellitus, 00:00: Medi ramírez without without 00 Center long-term long-term current current use of use of insulin insulin Hyperlipid Hyperlipid Disease Active [facility] emia emia 3-18 [facility] - 00:00: Medical 00 [place] Essential Essential Disease Active [facility] hypertensi hypertensi 3-18 Candice kes - on on 00:00: Medical 00 Center Diabetes Diabetes Problem Active [facility] mellitus, mellitus, [facility] - type 2 type 2 Memoria l Outpati ent Clinics Gastroesop Gastroesop Problem Active [facility] hageal hageal [facility] - reflux reflux Memoria disease disease l Outpati ent Clinics Cervicalgi Cervicalgi Problem Active [facility] Hyperlipid Hyperlipid Problem Active [facility] emia emia [facility] Hypertensi Hypertensi Problem Active [facility] on [facility] ADD ADD Diagnosis Active [facility] (attention (attention Candice kes - deficit deficit Memoria disorder) disorder) l without without Outpati hyperactiv hyperactiv en t ity ity Clinics Morbid Morbid Problem Active [facility] obesity obesity [facility] Migraine Migraine Problem [facility] Anxiety Anxiety Problem Active [facility] Insomnia Insomnia Problem [facility] Cervical Cervical Problem Active [facility] radiculopa radiculopa Candice kes - thy thy [facility] l [facility] Tingling Tingling Problem Active [facility] in in [facility] - extremitie extremitie Me moria s s l [facility] Adult Adult Problem Active [facility] general general [facility] exam exam l [facility] History of History of Problem Active [facility] CVA CVA [facility] - (cerebrova (cerebrova Me moria scular scular l accident) accident) Outp ati ent Clinics Weakness Weakness Problem Active [facility] of left of left [facility] - side of side of Memoria body body l [facility] Hospital Hospital Problem Active [facility] discharge discharge Luke [facility] - follow-up follow-up Gene sonido l [facility] 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 Family History Family Member Diagnosis Comments Start Date Stop Date Source Natural father No Known Problem [facility] Natural mother No Known Problem [facility] Social History Social Habit Start Date Stop Date Quantity Comments Source History SDOH Alcohol [facility] Std Drinks [facility] History SDOH Alcohol [facility] Binge [facility] Sex Assigned At [facility] History SDOH Alcohol 2018-06-10 2018-06-10 [facility] Smoking Status Start Date Stop Date Source Never sm[facility] Ordered Filled Start Stop Current Ordering Indication Dosage Frequency Signature Comments Components Source Medication Medication Date Date Medication? Clinician (SIG) Name Name Maliha Jett 2020-0 Yes Na Esparza [address] [facility] 8-14 in the [facility] - 00:00: morning Memoria 00 l Outpati ent Clinics aspirin 81 2018-0 2020- No 81mg QD Take [address] [facility] MG chewable 3-20 03-19 tablet (81 L ukes - tablet 00:00: 23:59 mg total) Medic al 00 :00 by mouth Center daily. atorvastati 2018- Yes 40mg QD Take [address] [facility] n (LIPITOR) 3-19 tablets [facility] - 20 MG 00:00: (40 mg Medical tablet 00 total) by Center mouth every evening. dexlansopra 2018-0 Yes 60mg QD Take [address] [facility] zole 60 mg 3-18 by mouth [facility] - capsule 06:53: every Medical 30 evening. [place] zolpidem 2018-0 Yes 10mg Take [address] [facility] (AMBIEN) 10 3-18 by mouth Luke s - mg tablet 06:53: every Medical 30 night as Center needed for Insomnia. ALPRAZolam 2018- Yes .5mg Take 0.[address] [facility] (XANAX) 0.5 3-18 mg by [facility] - MG tablet 06:53: mouth 2 Medic al 30 (two) Center times daily as needed for Anxiety. SUMAtriptan 2018-0 Yes 100mg Take [address] (IMITREX) 3-18 mg by [facility] - 100 MG 06:53: mouth once Medic al tablet 30 as needed Center for Headaches or Migraine. cetirizine 2018- Yes 10mg QD Take [address] (ZYRTEC) 10 3-18 by mouth Luke s - MG tablet 06:53: every Medical 30 evening. [place] lisdexamfet 2018-0 Yes 60mg QD Take [address] [facility] amine 3-18 by mouth [facility] - (VYVANSE) 06:53: every Medical 60 MG 29 morning. [place] capsule losartan 2018-0 Yes 100mg QD Take [address] (COZAAR) 3-18 mg by [facility] - 100 MG 06:53: mouth Medical tablet 29 daily. [place] escitalopra 2018-0 Yes 20mg QD Take [address] [facility] m oxalate 3-18 by mouth [facility] - (LEXAPRO) 06:53: daily. Medica l 20 MG 29 Center tablet multivit-mi 2018-0 Yes QD Take by [facility] nerals/FA/l 3-18 mouth [facility] - ycopene 06:53: daily. Medical (ONE-A-DAY 29 Center MEN'S ORAL) glipiZIDE 2019-0 Yes 5mg Take [address] [facility] (GLUCOTROL) 3-18 by mouth 2 Candice kes - 5 MG tablet 06:43: (two) Medic al 50 times Center daily before meals Half of tab in am. Whole tab in the pm . metFORMIN 2019-0 Yes 1000mg Take 1,[address] [facility] (GLUCOPHAGE 3-18 mg by [facility] - ) 1000 MG 06:40: mouth 2 Medic al tablet 42 (two) Center times daily with breakfast and dinner. Immunizations Ordered Filled Immunization Date Status Comments [facility] e Immunization Name Name Donny single dose Afluria single dose 2019-01-[address] [facility]00 [facility] Outpatient Clinics Procedures This patient has no known procedures. Encounters Start End Encounter Admission Attending Care Care Encounter Source Date/Time Date/Time Type Type Clinicians Facility Department ID 2019-11-07 2019-11-07 Outpatient Kinjal Huff [id number] [facility] 12:37:00 12:37:00 t [facility] Family Medicine l [facility] 2019-09-05 2019-09-05 Outpatient Divina PIERCE Divina [facility] [id number] [place] 04:26:00 09:33:00 [facility] 2019-08-29 2019-08-29 Outpatient Kinjal Huff [id number] 13:00:00 13:00:00 t Prescott Constant Therapy [facility] Family Medicine l Medicine Outpati ent Clinics 2019-08-26 2019-08-26 Outpatient Kinjal Huff [id number] 13:55:00 13:55:00 t Prescott Constant Therapy [facility] Family Medicine l Medicine Outpati ent Clinics 2019-08-21 2019-08-21 Outpatient Kinjal Huff [id number] [facility] 16:51:00 16:51:00 t Prescott Constant Therapy [facility] Family Medicine l Medicine Outpati ent Clinics 2019-08-13 2019-08-13 Outpatient Kinjal Huff [id number] [facility] 14:52:00 14:52:00 t Prescott [employer] s - [employer]soft [facility] Medicine Medicine Outpati ent Clinics 2019-07-31 2019-07-31 [facility] [id number] [address] 11:06:00 11:06:00 t Prescott [employer] s - Drive [facility] l Medicine Outpati ent Clinics 2019-07-11 2019-07-11 [facility] [id number] 09:00:00 09:00:00 t Prescott [employer] s - [employer] [facility] Medicine Outpati ent Clinics 2019-07-09 2019-07-09 [facility] [id number] 14:59:00 14:59:00 t Prescott [employer] s - [employer] [facility] Medicine Outpati ent Clinics 2019-07-04 2019-07-04 [facility] [id number] 10:20:00 10:20:00 t Prescott [employer] s - [employer] [facility] Medicine Outpati ent Clinics 2019-07-03 2019-07-03 [facility] [id number] [facility] 14:02:00 14:02:00 t Prescott [employer] s - [employer] [facility] Medicine Outpati ent Clinics 2019-07-01 2019-07-01 [facility] [id number] 11:14:00 11:14:00 t Prescott [employer] [place] [facility] Medicine Outpati ent Clinics 2019-05-30 2019-05-30 [facility] [id number] 11:55:00 11:55:00 t Prescott [employer] - [employer] [facility] Medicine Outpati ent Clinics 2019-05-13 2019-05-13 [facility] [id number] 11:55:00 11:55:00 t Prescott [employer] s - [employer] [facility] Medicine Outpati ent Clinics 2019-05-02 2019-05-02 [facility] [id number] [address] 16:40:00 16:40:00 t Prescott [employer] s - [employer] [facility] Medicine Outpati ent Clinics 2019-04-29 2019-04-29 [facility] [id number] [address] 10:42:00 10:42:00 t Prescott Prescott [employer] [facility] - Drive [facility] Medicine Medicine Outpati ent Clinics 2019-04-17 2019-04-17 [facility] [id number] 16:32:00 16:32:00 t Prescott Prescott [employer] s - Drive [facility] Medicine Outpati ent Clinics 2019-03-17 2019-03-17 [facility] [id number] 14:08:00 14:08:00 t Prescott Prescott [employer] s - Drive [facility] Medicine l Medicine Outpati ent Clinics 2019-03-05 2019-03-05 [facility] [id number] 14:23:00 14:23:00 t Prescott Prescott [employer]soft [employer] s - Drive [facility] Medicine Outpati ent Clinics 2019-02-17 2019-02-17 [facility] [id number] 15:01:00 15:01:00 t Prescott Prescott [employer] s - Drive [facility] Medicine Outpati ent Clinics 2019-02-05 2019-02-05 [facility] [id number] 12:12:00 12:12:00 t Prescott Prescott [employer] s - Drive [facility] Medicine Outpati ent Clinics 2019-01-31 2019-01-31 [facility] [id number] 14:00:00 14:00:00 t Prescott Prescott [employer] s - Drive [facility] Medicine Outpati ent Clinics 2019-01-23 2019-01-23 [facility] [id number] 08:39:00 08:39:00 t Prescott Prescott [employer] s - Drive [facility] Medicine Outpati ent Clinics 2019-01-20 2019-01-20 [facility] [id number] 08:04:00 08:04:00 t Prescott Prescott [employer]soft [employer] s - Drive [facility] Medicine Outpati ent Clinics 2018-12-19 2018-12-19 [facility] [id number] 10:00:00 10:00:00 t Bone Bone and [facility] - and Joint [facility] a [facility] ent Clinics 2018-12-17 2018-12-17 [facility] [id number] 08:28:00 08:28:00 t Prescott [employer] - [employer] [facility] ent Clinics 2018-12-11 2018-12-11 [facility] [id number] 11:29:00 11:29:00 t Bone Bone and [facility] - and Joint [facility] ent Clinics 2018-12-06 2018-12-06 [facility] [id number] [address] 09:16:00 09:16:00 t Bone Bone and [facility] - and Joint Joint Memori a Clinic [facility] ent Clinics 2018-12-05 2018-12-05 [facility] [place] [id number] 14:30:00 14:30:00 t Bone Bone and [facility] - and Joint Joint Memori a Clinic of [facility] ent Clinics 2018-11-28 2018-11-28 [facility] [id number] [address] 09:30:00 09:30:00 t Bone Bone and [facility] - and Joint Joint Memori a Clinic of [facility] ent Clinics 2018-11-07 2018-11-07 [facility] [id number] 17:10:00 17:10:00 t Prescott [employer] [place] [facility] ent Clinics 2018-10-14 2018-10-14 [facility] [id number] 08:58:00 08:58:00 t Prescott [employer] s - Drive [facility] 2018-10-07 2018-10-07 [facility] [id number] 16:40:00 16:40:00 t Prescott [employer] s - Drive [facility] ent Clinics 2018-09-04 2018-09-04 [facility] [id number] 15:15:00 15:15:00 t Prescott [employer] s - Drive [facility] ent Clinics 2018-07-23 2018-07-23 [facility] [id number] [facility] 15:57:00 15:57:[address] Luke s - Drive [facility] Family Medicine Medicine Outpati ent Clinics 2018-07-04 2018-07-04 [facility] [id number] 16:40:00 16:40:00 t Prescott Prescott [employer] Luke s - Drive [facility] Medicine l Medicine Outpati ent Clinics 2018-07-02 2018-07-02 [facility] [id number] 13:29:00 13:29:00 t Prescott Prescott [employer] Luke s - Drive [facility] Medicine l Medicine Outpati ent Clinics 2018-06-21 2018-06-21 [facility] [id number] 09:19:00 09:19:00 t Prescott Prescott [employer] - Drive [facility] Medicine l Medicine Outpati ent Clinics 2018-06-18 2018-06-18 [facility] [id number] 15:45:00 15:45:00 t Prescott Prescott [employer] - Drive [facility] Medicine l Medicine Outpati ent Clinics 2018-05-15 2018-05-15 [facility] [id number] 15:45:00 15:45:00 t Prescott Prescott [employer] - Drive [facility] Medicine l Medicine Outpati ent Clinics 2017-12-07 2017-12-07 [facility] [id number] 13:36:00 13:36:00 t Prescott Prescott [employer] - Drive [facility] Medicine l Medicine Outpati ent Clinics 2017-10-15 2017-10-15 [facility] [id number] 13:00:00 13:00:00 t Prescott Prescott [employer] - Drive [facility] Medicine l Medicine Outpati ent Clinics 2017-10-05 2017-10-05 [facility] [id number] 08:30:00 08:30:00 t Prescott Prescott [employer] s - Drive [facility] Medicine l Medicine Outpati ent Clinics 2017-07-25 2017-07-25 [facility] [id number] [facility] 16:13:00 16:13:00 t Prescott Prescott [employer] s - Drive Family [facility] Family Medicine l Medicine Outpati ent Clinics 2017-07-16 2017-07-16 [facility] [id number] 10:12:00 10:12:00 t [employer] [facility] Medicine Outpati ent Clinics 2017-07-16 2017-07-16 [facility] [id number] 10:05:00 10:05:00 t [employer] - [employer] [facility] Medicine Outpati ent Clinics 2017-07-12 2017-07-12 [facility] [id number] 14:27:00 14:27:00 t [employer] - [employer] [facility] Medicine Outpati ent Clinics 2017-07-08 2017-07-08 [facility] [id number] 16:23:00 16:23:00 t [employer] [facility] Medicine Outpati ent Clinics 2017-07-06 2017-07-06 [facility] [id number] 08:00:00 08:00:00 t [employer] [facility] Medicine Outpati ent Clinics Results Test Description Test Time Test Comments Results Result Comments Source GLUCOMETER GLUCOSE- LAB USE ONLY 2019-09-05 05:51:00 Test Item Value Reference Range Interpretation Comme nts GLUCOMETER (test code = GMG) 140 mg/dL 70-100 H Meter ID: [id number]: 20647 JAMI DENSON POCT-GLUCOSE [id number] 13:27:00 Test Item Value Reference Range Interpretation Comments POC-GLUCOSE METER 195 mg/dL 70-110 H TESTED AT [place] [address] ([facility]) (test code = [facility] 1538) [id number] POCT-GLUCOSE [id number] 06:19:00 Test Item Value Reference Range Interpretation Comments POC-GLUCOSE METER 145 mg/dL 70-110 H TESTED AT [facility] 6720 ([facility]) (test code = [facility] 1538) [address] BASIC METABOLIC [id number] 06:13:00 Test Item Value Reference Range Interpretation Comments SODIUM (BEAKER) 137 meq/L 136-145 (test code = 381) POTASSIUM (BEAKER) 3.7 meq/L 3.5-5.1 (test code = 379) CHLORIDE (BEAKER) 106 meq/L 98-107 (test code = 382) CO2 (BEAKER) (test 22 meq/L 22-29 code = 355) BLOOD UREA NITROGEN 13 mg/dL 7-21 (BEAKER) (test code = 354) CREATININE (BEAKER) 0.76 mg/dL 0.57-1.25 (test code = 358) GLUCOSE RANDOM 149 mg/dL 70-105 H (BEAKER) (test code = 652) CALCIUM (BEAKER) 9.3 mg/dL 8.4-10.2 (test code = 697) EGFR (BEAKER) (test 115 mL/min/1.73 ESTIM ATED GFR IS code = 1092) sq m NOT ACCURATE CREATININE CLEARANCE IN PREDICTING GLOMERULAR FILTRATION RATE . ESTIMATED GFR I S NOT APPLICABLE FOR DIALYSIS PATIEN TS. CBC W/PLT COUNT & AUTO [id number] 05:37:00 Test Item Value Reference Range Interpretation Comments WHITE BLOOD CELL COUNT (BEAKER) 5.7 K/ L 3.5-10.5 (test code = 775) RED BLOOD CELL COUNT (BEAKER) 4.83 M/ L 4.63-6.08 (test code = 761) HEMOGLOBIN (BEAKER) (test code = 13.6 GM/DL 13.7-17.5 L 410) HEMATOCRIT (BEAKER) (test code = 41.6 % 40.1-51.0 411) MEAN CORPUSCULAR VOLUME (BEAKER) 86.1 fL 79.0-92.2 (test code = 753) MEAN CORPUSCULAR HEMOGLOBIN 28.2 pg 25.7-32.2 (BEAKER) (test code = 751) MEAN CORPUSCULAR HEMOGLOBIN CONC 32.7 GM/DL 32.3-36.5 (BEAKER) (test code = 752) RED CELL DISTRIBUTION WIDTH 13.3 % 11.6-14.4 (BEAKER) (test code = 412) PLATELET COUNT (BEAKER) (test 243 K/CU MM 150-450 code = 756) MEAN PLATELET VOLUME (BEAKER) 9.6 fL 9.4-12.4 (test code = 754) NUCLEATED RED BLOOD CELLS 0 /100 WBC 0-0 (BEAKER) (test code = 413) NEUTROPHILS RELATIVE PERCENT 46 % (BEAKER) (test code = 429) LYMPHOCYTES RELATIVE PERCENT 41 % (BEAKER) (test code = 430) MONOCYTES RELATIVE PERCENT 8 % (BEAKER) (test code = 431) EOSINOPHILS RELATIVE PERCENT 5 % (BEAKER) (test code = 432) BASOPHILS RELATIVE PERCENT 1 % (BEAKER) (test code = 437) NEUTROPHILS ABSOLUTE COUNT 2.62 K/ L 1.78-5.38 (BEAKER) (test code = 670) LYMPHOCYTES ABSOLUTE COUNT 2.32 K/ L 1.32-3.57 (BEAKER) (test code = 414) MONOCYTES ABSOLUTE COUNT (BEAKER) 0.43 K/ L 0.30-0.82 (test code = 415) EOSINOPHILS ABSOLUTE COUNT 0.27 K/ L 0.04-0.54 (BEAKER) (test code = 416) BASOPHILS ABSOLUTE COUNT (BEAKER) 0.04 K/ L 0.01-0.08 (test code = 417) IMMATURE GRANULOCYTES-RELATIVE 0 % 0-1 PERCENT (BEAKER) (test code = 2801) POCT-GLUCOSE [id number] 23:38:00 Test Item Value Reference Range Interpretation Comments POC-GLUCOSE METER 176 mg/dL 70-110 H TESTED AT [facility] 67[facility] ([facility]) (test code = [facility] 1538) [id number] POCT-GLUCOSE [id number] 18:32:00 Test Item Value Reference Range Interpretation Comments POC-GLUCOSE METER 177 mg/dL 70-110 H TESTED AT [facility] 67[address] ([facility]) (test code = [facility] 1538) [id number] MR, BRAIN, WITHOUT [id number] 17:46:00FINAL REPORT MR, BRAIN, WITHOUT CONTRAST INDICATION: Stroke TECHNIQUE: Multiplanar, multisequence MR imaging of the brain was obtained. COMPARISON: None FINDINGS:Brain parenchymais normal in morphology. Midline structures are normally developed. No restricted diffusion to suggest recent ischemic insult. No abnormal susceptibility. Scattered T2/FLAIR hyperintense foci within the periventricular and subcortical white matter are nonspecific, however, statistically represent chronic microvascular ischemic changes. No hydrocephalus. Orbits are within normal limits. No obstructiveparanasal sinus disease. Calvarium and skull base demonstrate marrow signal within normal limits forage without focal lesion. Additional findings: None. IMPRESSION: Unremarkable MRI of the brain. Signed: Agus Stevenskell Verified Date/Time: 06/10/2018 17:46:10 Reading Location: [facility] Reading Room POCT-GLUCOSE [id number] 12:31:00 Test Item Value Reference Range Interpretation Comments POC-GLUCOSE METER 148 mg/dL 70-110 H TESTED AT [facility] 67[address] ([facility]) (test code = [facility]QUES Ordo[facility]ez [facility] 1538) [id number] HEMOGLOBIN [id number] 10:38:00 Test Item Value Reference Range Interpretation Comments HEMOGLOBIN A1C (AKER) (test code = 7.7 % 4.3-6.1 H 368) LIPID [id number] 10:31:00 Test Item Value Reference Range Interpretation Comments TRIGLYCERIDES (BEAKER) (test code = 228 mg/dL 540) CHOLESTEROL (BEAKER) (test code = 141 mg/dL 631) HDL CHOLESTEROL ([facility]) (test code 38 mg/dL = 976) LDL CHOLESTEROL CALCULATED ([facility]) 57 mg/dL (test code = 633) Triglyceride Reference Range: Low Risk <150 Borderline 150-199 High Risk 200-499 Very High Risk >=500Cholesterol Reference Range: Low Risk <200 Borderline 200-239 High Risk >240HDL Cholesterol Reference Range: Low Risk >=60 High Risk <40LDL Cholesterol Reference Range: Optimal <100 Near Optimal 100-129 Borderline 130-159 High 160-189 Very High >=190VITAMIN [id number] 08:18:00 Test Item Value Reference Range Interpretation Comments VITAMIN B12 (BEAKER) (test code = 701 pg/mL 213-816 774) TSH/FREE T4 IF [id number] 07:10:00 Test Item Value Reference Range Interpretation Comments THYROID STIMULATING HORMONE 3.11 uIU/mL 0.35-4.94 (BEAKER) (test code = 772) TROPONIN [id number] 06:56:00 Test Item Value Reference Range Interpretation Comments TROPONIN I (BEAKER) (test code = 397) < ng/mL 0.00-0.03 Troponin I (TnI) levels must be interpreted in the context of the presenting symptoms and the clinical findings. Elevated TnI levels indicate myocardial damage, but are not specific for ischemic heart disease. Elevated TnI levels are seen in patients with other cardiac conditions (including myocarditis and congestive heart failure), and slight TnI elevations occur in patients with other conditions, including sepsis, renal failure, acidosis, acute neurological disease, and persistent tachyarrhythmia.POCT-GLUCOSE [id number] 06:46:00 Test Item Value Reference Range Interpretation Comments POC-GLUCOSE METER 125 mg/dL 70-110 H TESTED AT [facility] 67[address] ([employer]) (test code = [place] 1538) [id number] 06:38:00 Test Item Value Reference Range Interpretation Comments PARTIAL THROMBOPLASTIN TIME 30.3 seconds 22.5-36.0 ([employer]) (test code = 760) PROTHROMBIN [id number] 06:37:00 Test Item Value Reference Range Interpretation Comments PROTIME ([employer]) (test code = 12.6 seconds 11.7-14.7 759) INR ([facility]) (test code = 370) 0.9 <=5.9 RECOMMENDED COUMADIN/WARFARIN INR THERAPY RANGESSTANDARD DOSE: 2.0 - 3.0 Includes: PROPHYLAXIS forvenous thrombosis, systemic embolization; TREATMENT for venous thrombosis and/or pulmonary embolus.HIGH RISK: Target INR is 2.5-3.5 for patients with mechanical heart valves.
--- OUTSIDE RECORDS SUMMARY | 2019-12-09 21:01 | XMS REPORT | Clinical Summary ---
:1980 Author Organization [facility] Address [address] [place] [address] Care Team Providers Name Role Phone Zhane Primary Care Provider Unavailable Allergies No Known Allergies Medications Medication Sig Dispensed Refills Start Date End Date Status metFORMIN (GLUCOPHAGE) Take 1,000 mg 0 Active 1000 MG tablet by mouth 2 (two) times daily with breakfast and dinner. glipiZIDE (GLUCOTROL) 5 Take 5 mg by 0 Active MG tablet mouth 2 (two) times daily before meals Half of tab in am. Whole tab in the pm . lisdexamfetamine Take 60 mg by 0 Active (VYVANSE) 60 MG capsule mouth every morning. losartan (COZAAR) 100 Take 100 mg by 0 Active MG tablet mouth daily. escitalopram oxalate Take 20 mg by 0 Active (LEXAPRO) 20 MG tablet mouth daily. multivit-minerals/FA/ly Take by mouth 0 Active copene (ONE-A-DAY MEN'S daily. ORAL) dexlansoprazole 60 mg Take 60 mg by 0 Active capsule mouth every evening. zolpidem (AMBIEN) 10 mg Take 10 mg by 0 Active tablet mouth every night as needed for Insomnia. ALPRAZolam (XANAX) 0.5 Take 0.5 mg by 0 Active MG tablet mouth 2 (two) times daily as needed for Anxiety. SUMAtriptan (IMITREX) Take 100 mg by 0 Active 100 MG tablet mouth once as needed for Headaches or Migraine. cetirizine (ZYRTEC) 10 Take 10 mg by 0 Active MG tablet mouth every evening. atorvastatin (LIPITOR) Take 2 tablets 90 tablet 1 06/11/2018 Active 20 MG tablet (40 mg total) by mouth every evening. aspirin 81 MG chewable Take 1 tablet 90 tablet 3 06/12/2018 tablet (81 mg total) by mouth daily. Active Problems Problem Noted Date Stroke (cerebrum) 06/10/2018 Type 2 diabetes mellitus, without long-term current us e of insulin 06/10/2018 Hyperlipidemia 06/10/2018 Essential hypertension 06/10/2018 Family History Medical History Relation Name Comments No Known Problem Father No Known Problem Mother Relation Name Status Comments Father Mother Social History Tobacco Use Types Packs/Day Years Used Date Never Smoker Smokeless Tobacco: Never Used Alcohol Use Drinks/Week oz/Week Comments Yes Alcohol Habits Answer Date Recorded How often do you have a drink containing alcohol? Monthly or less 06/10/2018 How many drinks containing alcohol do you have on a Not aske d typical day when you are drinking? How often do you have six or more drinks on one Not asked occasion? Sex Assigned at Date Recorded Not on file Job Start Date Occupation Industry Not on file Not on file Not on file Travel History Travel Start Travel End No recent travel history available. Last Filed Vital Signs Not on file Plan of Treatment Not on file Results Not on fileafter 12/08/2018 Insurance Payer Benefit Plan / Group Subscriber ID Type Phone A ddress CIG[employer] - MGD CARE CIGNA HMO/POS/OPEN ACCESS xxxxxxxxxxx HMO/POS Advance Directives For more information, please contact:[place] [address] [place], [place] [phone] Code Status Date Activated Date Inactivated Comments Full Code 06/10/2018 5:59 AM 06/11/2018 7:04 PM This code status was determined by: Patient
[2019-12-09] MEDS ORDERED: ONDANSETRON 4 MG/2 ML VIAL ONE (21:47)
[2019-12-09] MEDS ORDERED: MORPHINE 4 MG/ML SYR ONE (21:47)
[2019-12-09 21:48] LABS: Basophils % 0.5 % (0-1.3); Hematocrit 51.1 % (39.6-49.0); Lymphocytes % 39.2 % (15.3-44.8); MPV 7.7 fL (7.6-11.3); RBC Red Blood Cell Count 5.99 M/uL (4.33-5.43)
[2019-12-09] MEDS ORDERED: NA CHLORIDE 0.9% 2,000 ML ONE (21:48)
[2019-12-09 21:57] LABS: Urine Blood NEGATIVE (NEG); Urine Glucose 2+ (NEG); Urine Protein NEGATIVE (NEG); Urine Specific Gravity >1.030 (1.005-1.030)
[2019-12-09 22:13] LABS: ALT/SGPT 71 U/L (12-78); Albumin 4.1 g/dL (3.4-5.0); Alkaline Phosphatase 117 U/L (45-117); BUN Blood Urea Nitrogen 12 mg/dL (7-18); Bicarbonate 24 mmol/L (21-32); Bilirubin Direct < 0.1 mg/dL (0-0.2); Bilirubin Total 0.6 mg/dL (0.2-1.0); Glucose Level 109 mg/dL (74-106); Lipase 213 U/L (73-393); Protein, Total 7.5 g/dL (6.4-8.2); Sodium Level 139 mmol/L (136-145)
[2019-12-09 22:14] LABS: AST/SGOT 23 U/L (15-37); Potassium 4.1 mmol/L (3.5-5.1)
--- NOTE | 2019-12-09 23:02 | EDPHYS ---
Physician Documentation [facility] Name: Mitch Lobo Age: 39 yrs Sex: Male : 1980 Arrival Date: 12/09/2019 Time: 21:00 Bed 16 Private MD: ED Physician Jacky Mar HPI: 12/08 21:10 This 39 yrs old Male presents to ER via Ambulatory with complaints of jmm Abdominal Pain. 21:10 The patient presents with abdominal pain in the right upper quadrant. Onset: The jmm symptoms/episode began/occurred gradually, 4 day(s) ago. The symptoms do not radiate. Associated signs and symptoms: Pertinent negatives: diarrhea, fever. Modifying factors: The symptoms are alleviated by nothing, the symptoms are aggravated by food. The patient has experienced a previous episode. Historical: - Allergies: 21:22 No Known Allergies; bb - Home Meds: 21:22 duloxetine 90 mg oral cpDR once daily [Active]; Cozaar 100 mg Oral tab 1 tab once daily bb [Active]; metformin 1,000 mg Oral tab 1 tab 2 times per day [Active]; Ambien 10 mg Oral tab 1 tab once daily [Active]; alprazolam 0.5 mg Oral TbDL 1 tab PRN BID [Active]; Lipitor 40 mg Oral tab 1 tab once daily [Active]; Dexilant 60 mg Oral CpDB 1 cap once daily [Active]; Invokana 100 mg oral tab 1 tab once daily [Active]; glimepiride 4 mg Oral tab 1 tab twice a day [Active]; Imitrex 100 mg Oral tab 1 tab as needed [Active]; aspirin 81 mg Oral chew 1 tab once daily [Active]; Vyvanse 60 mg Oral cap once daily [Active]; - PMHx: 21:22 Diabetes - NIDDM; Gastric Reflux; High Cholesterol; Hypertension; Pancreatitis; bb - PSHx: 21:22 Appendectomy; Cholecystectomy; [place]'s tendon; bb - Immunization history:: Adult Immunizations up to date. - Social history:: Smoking status: Patient denies any tobacco usage or history of. Patient/guardian denies using alcohol, street drugs. ROS: 21:10 Constitutional: Negative for fever, chills, and weight loss, Cardiovascular: Negative jmm for chest pain, palpitations, and edema, Respiratory: Negative for shortness of breath, cough, wheezing, and pleuritic chest pain. 21:10 Abdomen/GI: Positive for abdominal pain. 21:10 All other systems are negative. Exam: 21:10 Constitutional: This is a well developed, well nourished patient who is awake, alert, jmm and in no acute distress. Head/Face: atraumatic. Eyes: EOMI, no conjunctival erythema appreciated ENT: Moist Mucus Membranes Neck: Trachea midline, Supple Chest/axilla: Normal chest wall appearance and motion. Cardiovascular: Regular rate and rhythm. No edema appreciated Respiratory: Normal respirations, no respiratory distress appreciated 21:10 Back: Normal ROM Skin: General appearance color normal MS/ Extremity: Moves all extremities, no obvious deformities appreciated, no edema noted to the lower extremities Neuro: Awake and alert, normal gait Psych: Behavior is normal, Mood is normal, Patient is cooperative and pleasant 21:10 Abdomen/GI: Inspection: obese Bowel sounds: normal, Palpation: soft, in all quadrants, mild abdominal tenderness, in the right upper quadrant. Vital Signs: 21:13 BP 117 / 85; Pulse 91; Resp 16 S; Temp 97.9(O); Pulse Ox 98% on R/A; Weight 122.02 kg bb (R); Height 5 ft. 10 in. (177.80 cm) (R); Pain 7/10; 21:49 BP 128 / 85; Pulse 89; Resp 18; Pulse Ox 98% on R/A; mg2 23:10 BP 101 / 65; Pulse 78; Resp 18; Pulse Ox 96% on R/A; mg2 21:13 Body Mass Index 38.60 (122.02 kg, 177.80 cm) bb MDM: 21:28 Patient medically screened. [facility] 23:00 Data reviewed: vital signs, nurses notes. Counseling: I had a detailed discussion with [facility] the patient and/or guardian regarding: the historical points, exam findings, and any diagnostic results supporting the discharge/admit diagnosis, radiology results, the need for outpatient follow up, to return to the emergency department if symptoms worsen or persist or if there are any questions or concerns that arise at home. ED course: Patient is alert and non toxic in appearance in the ED. CT negative. Patient is advised to follow up with GI for further evaluation. Patient is otherwise given strict return precautions. Patient understood and agrees with the plan of care. . 12/08 21:13 Order name: Basic Metabolic Panel; Complete Time: 22:15 [facility] [place] 12/08 21:13 Order name: CBC with Diff; Complete Time: 21:50 [facility] [place] 12/08 21:13 Order name: Hepatic Function; Complete Time: 22:15 [facility] [place] 12/08 21:13 Order name: Lipase; Complete Time: 22:15 [facility] [place] 12/08 21:33 Order name: Urine Dipstick--Ancillary (enter results); Complete Time: 21:59 tt3 12/08 21:48 Order name: CT Abd/Pelvis - IV Contrast Only [facility] 12/08 21:13 Order name: IV Saline Lock; Complete Time: 21:23 [facility] [place] 12/08 21:13 Order name: Labs collected and sent; Complete Time: 21:24 [facility] [place] 12/08 21:28 Order name: Urine Dipstick-Ancillary (obtain specimen); Complete Time: 21:33 [facility] Administered Medications: 21:41 Drug: NS 0.9% 2000 ml Route: IV; Rate: 1 bolus; Site: right antecubital; mg2 22:36 Follow up: Response: No adverse reaction; IV Status: Completed infusion; IV Intake: mg2 2000ml 21:41 Drug: Zofran (Ondansetron) 4 mg Route: IVP; Site: right antecubital; mg2 22:35 Follow up: Response: No adverse reaction; Marked relief of symptoms; Nausea is decreasedmg2 21:41 Drug: morphine 4 mg Route: IVP; Site: right antecubital; mg2 22:35 Follow up: Response: No adverse reaction; Marked relief of symptoms; RASS: Drowsy (-1) mg2 Disposition: 23:20 Co-signature as Attending Physician, Jacky Mar MD. [email or web address] Disposition: 12/09/19 23:01 Discharged to Home. Impression: Unspecified abdominal pain. - Condition is Stable. - Discharge Instructions: Abdominal Pain, Adult. - Prescriptions for Bentyl 20 mg Oral Tablet - take 1 tablet by ORAL route every 6 hours As needed; 20 tablet. - Medication Reconciliation Form, Thank You Letter, Antibiotic Education, Prescription Opioid Use form. - Follow up: Malcom Lieberman MD; When: 2 - 3 days; Reason: Recheck today's complaints, Continuance of care, Re-evaluation by your physician. Signatures: Dispatcher [employer] EDMS Abiel Lomax PA PA jmm Ballard, Brenda RN RN bb Travon Timmons RN RN mg2 Jacky Mar MD MD [email or web address] Corrections: (The following items were deleted from the chart) 23:16 23:01 12/09/2019 23:01 Discharged to Home. Impression: Unspecified abdominal pain. mg2 Condition is Stable. Forms are Medication Reconciliation Form, Thank You Letter, Antibiotic Education, Prescription Opioid Use. Follow up: Malcom Lieberman; When: 2 - 3 days; Reason: Recheck today's complaints, Continuance of care, Re-evaluation by your physician. erin
--- NOTE | 2019-12-09 23:02 | ER ---
Nurse's Notes [facility] Name: Mitch Lobo Age: 39 yrs Sex: Male : 1980 Arrival Date: 12/09/2019 Time: 21:00 Bed 16 Private MD: Diagnosis: Unspecified abdominal pain Presentation: 12/08 21:13 Chief complaint: Patient states: he is having constant right upper quad pain worse bb after eating had one episode of vomiting earlier denies diarrhea started on sucralfate and phenergan earlier today by Dr Esparza but told to come to ED if symptoms don't improve pt also had bloodwork here earlier today. Coronavirus screen: At this time, the client does not indicate any symptoms associated with coronavirus-19. Ebola Screen: No symptoms or risks identified at this time. Initial Sepsis Screen: Does the patient meet any 2 criteria? No. Patient's initial sepsis screen is negative. Does the patient have a suspected source of infection? No. Patient's initial sepsis screen is negative. Risk Assessment: Do you want to hurt yourself or someone else? Patient reports no desire to harm self or others. Onset of symptoms was December 06, 2019. 21:13 Method Of Arrival: Ambulatory bb 21:13 Acuity: JOSE M 3 bb Historical: - Allergies: 21:22 No Known Allergies; bb - Home Meds: 21:22 duloxetine 90 mg oral cpDR once daily [Active]; Cozaar 100 mg Oral tab 1 tab once daily bb [Active]; metformin 1,000 mg Oral tab 1 tab 2 times per day [Active]; Ambien 10 mg Oral tab 1 tab once daily [Active]; alprazolam 0.5 mg Oral TbDL 1 tab PRN BID [Active]; Lipitor 40 mg Oral tab 1 tab once daily [Active]; Dexilant 60 mg Oral CpDB 1 cap once daily [Active]; Invokana 100 mg oral tab 1 tab once daily [Active]; glimepiride 4 mg Oral tab 1 tab twice a day [Active]; Imitrex 100 mg Oral tab 1 tab as needed [Active]; aspirin 81 mg Oral chew 1 tab once daily [Active]; Vyvanse 60 mg Oral cap once daily [Active]; - PMHx: 21:22 Diabetes - NIDDM; Gastric Reflux; High Cholesterol; Hypertension; Pancreatitis; bb - PSHx: 21:22 Appendectomy; Cholecystectomy; [place]'s tendon; bb - Immunization history:: Adult Immunizations up to date. - Social history:: Smoking status: Patient denies any tobacco usage or history of. Patient/guardian denies using alcohol, street drugs. Screenin:24 Abuse screen: Denies threats or abuse. Denies injuries from another. Nutritional mg2 screening: No deficits noted. Tuberculosis screening: No symptoms or risk factors identified. Fall Risk IV access (20 points). Assessment: 21:24 General: Appears in no apparent distress. comfortable, Behavior is calm, cooperative. mg2 Pain: Complains of pain in abdomen. Neuro: Level of Consciousness is awake, alert, obeys commands, Oriented to person, place, time, situation. Cardiovascular: Capillary refill < 3 seconds Patient's skin is warm and dry. Respiratory: Airway is patent Respiratory effort is even, unlabored, Respiratory pattern is regular, symmetrical. GI: Bowel sounds present X 4 quads. Abd is soft X 4 quads Reports upper abdominal pain, vomiting. : No signs and/or symptoms were reported regarding the genitourinary system. EENT: No signs and/or symptoms were reported regarding the EENT system. Derm: Skin is intact, is healthy with good turgor, Skin is pink, warm \T\ dry. normal. Musculoskeletal: Circulation, motion, and sensation intact. Capillary refill < 3 seconds. 22:20 Reassessment: patient sent to CT scan via wheelchair. mg2 23:15 Reassessment: Patient appears in no apparent distress at this time. Patient denies pain mg2 at this time. Patient states feeling better. Vital Signs: 21:13 BP 117 / 85; Pulse 91; Resp 16 S; Temp 97.9(O); Pulse Ox 98% on R/A; Weight 122.02 kg bb (R); Height 5 ft. 10 in. (177.80 cm) (R); Pain 7/10; 21:49 BP 128 / 85; Pulse 89; Resp 18; Pulse Ox 98% on R/A; mg2 23:10 BP 101 / 65; Pulse 78; Resp 18; Pulse Ox 96% on R/A; mg2 21:13 Body Mass Index 38.60 (122.02 kg, 177.80 cm) ED Course: 21:00 Patient arrived in ED. cl3 21:08 Abiel Lomax PA is PHCP. cain 21:08 Jacky Mar MD is Attending Physician. erin 21:13 Travon Timmons, RN is Primary Nurse. mg2 21:18 Triage completed. bb 21:22 Arm band placed on Patient placed in an exam room, on a stretcher, on pulse oximetry. bb 21:24 No provider procedures requiring assistance completed. Inserted saline lock: 20 gauge mg2 in right antecubital area, using aseptic technique. Blood collected. 21:25 Patient has correct armband on for positive identification. mg2 22:40 CT Abd/Pelvis - IV Contrast Only In Process Unspecified. EDMS 23:01 Malcom Lieberman MD is Referral Physician. jmm 23:15 IV discontinued, intact, bleeding controlled, No redness/swelling at site. Pressure mg2 dressing applied. Administered Medications: 21:41 Drug: NS 0.9% 2000 ml Route: IV; Rate: 1 bolus; Site: right antecubital; mg2 22:36 Follow up: Response: No adverse reaction; IV Status: Completed infusion; IV Intake: mg2 2000ml 21:41 Drug: Zofran (Ondansetron) 4 mg Route: IVP; Site: right antecubital; mg2 22:35 Follow up: Response: No adverse reaction; Marked relief of symptoms; Nausea is decreasedmg2 21:41 Drug: morphine 4 mg Route: IVP; Site: right antecubital; mg2 22:35 Follow up: Response: No adverse reaction; Marked relief of symptoms; RASS: Drowsy (-1) mg2 Intake: 22:36 IV: 2000ml; Total: 2000ml. mg2 Outcome: 23:01 Discharge ordered by MD. [facility] 23:15 Discharged to home ambulatory, with family. mg2 23:15 Condition: stable 23:15 Discharge instructions given to patient, family, Instructed on discharge instructions, follow up and referral plans. medication usage, Demonstrated understanding of instructions, follow-up care, medications, Prescriptions given X 1. 23:16 Patient left the ED. mg2 Signatures: Dispatcher [employer] EDMS Abiel Lomax PA PA jmm Ballard, Brenda, RN RN bb Travon Timmons, KAYLA RN mg2 Nick Guillermo cl3
[2019-12-10 00:23] VITALS: TEMP 97.9
[2019-12-10 00:25] VITALS: BP 101/65; O2SAT 96
--- NOTE | 2019-12-10 14:24 | RAD REPORT ---
EXAM DESCRIPTION: CT ABDOMEN AND PELVIS WITH CONTRAST CLINICAL HISTORY: Right upper abdominal pain. COMPARISON: 10/30/2017 TECHNIQUE: CT of the abdomen and pelvis performed following IV administration of iodinated contras t. FINDINGS: Lung Bases: The visualized lung bases are clear. Bones: Minimal endplate spondylosis. 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 Abdomen: Liver: The liver has normal size and decreased density. No intrahepatic biliary dilatation. Gallbladder: Prior cholecystectomy. Spleen, Pancreas, and Adrenal Glands: The spleen, pancreas, and adrenal glands are unremarkable. Kidneys: No hydronephrosis or obstructing calculus. Subcentimeter hypodensity in the right kidney likely represents a cyst. Vasculature: The aorta and IVC have normal caliber and position. The portal vein is patent. The pro ximal visceral and renal arteries are patent. Stomach: The stomach and duodenum have normal course. Other: No free intraperitoneal air. No free fluid or lymphadenopathy. Pelvis: Bladder: Urinary bladder is unremarkable. Bowel: No dilated loops of large or small bowel. Appendix: Prior appendectomy. Pelvis: Prostate is not enlarged. IMPRESSION: 1. No acute inflammatory or obstructive process identified. This exam was performed according to our departmental dose-optimization program, which includes autom ated exposure control, adjustment of the mA and/or kV according to patient size and/or use of iterati ve reconstruction technique. Electronically signed by: Wing Rios 12/09/2019 10:52 PM CDT Due to temporary technical issues with the PACS/Fluency reporting system, reports are being signed by the in house radiologist without review as a courtesy to ensure prompt reporting. The interpreting r adiologist is fully responsible for the content of the report.
== END 2019-12-09 23:16 | disposition home or self-care (01) ==
LOC: ER 20:58
DX: R10.11 Right upper quadrant pain (principal); I10 Essential (primary) hypertension; E11.9 Type 2 diabetes mellitus without complications; E78.00 Pure hypercholesterolemia, unspecified; Z79.82 Long term (current) use of aspirin
CPT/HCPCS: 96361; 85025; 80048; 36415; 80076; 81003; 83690; 74177; 96375; 96374; 99284; Q9967; J7030; J2405

== ENCOUNTER 2019-12-10 22:34 | Emergency (ER) | payer OTHER ==
--- OUTSIDE RECORDS SUMMARY | 2019-12-10 22:37 | XMS REPORT ---
[...] End Date Status Dos age Date Vyvalbin [facility] [id number] 60 MG Orally Nov 06, Active 1 capsu le Once a day 2019 in the morning Results No Known Results Summary Purpose eClinicalWorks Submission
--- OUTSIDE RECORDS SUMMARY | 2019-12-10 22:37 | XMS REPORT ---
[...] Z00.00 A ctive Problem Migraine G43.909 Active Problem Anxiety F41.9 Active Problem Hypertension I10 Active Problem Morbid obesity E66.01 Active Problem Hyperlipidemia E78.5 Active Problem Insomnia G47.00 Active Problem Cervical radiculopathy M54.12 Activ e Medications Medication Code System Code Instructions Start Date End Date Status Dosage Sucralfate [facility] [id number] 1 GM Orally Dec 08, Jan 07, Active 1 ta blet on 2019 2019 an empty stomach 1 hour before meals and at bedtime. Results No Known Results Summary Purpose eClinicalWorks Submission
--- OUTSIDE RECORDS SUMMARY | 2019-12-10 22:37 | XMS REPORT | Clinical Summary ---
:1980 Author Organization [facility] Address [address] [place] [address] Care Team Providers Name Role Phone Zhane [...] Not on file Results Not on fileafter 12/09/2018 Insurance Payer Benefit Plan / Group Subscriber ID Type Phone A ddress [employer] - MGD CARE CIGNA HMO/POS/OPEN ACCESS xxxxxxxxxxx HMO/POS Advance Directives For more information, please contact:[place] [address] [address] [place], [place] [phone] Code Status Date Activated Date Inactivated Comments Full Code 06/10/2018 5:59 AM 06/11/2018 7:04 PM This code status was determined by: Patient
--- OUTSIDE RECORDS SUMMARY | 2019-12-10 22:37 | XMS REPORT | Continuity of Care Document ---
:[address] [facility] t Address [address] [place] [address] Care Team Providers Name Role Phone Zhane [...] emia 3-18 [facility] - [facility]: Medical 00 [place] Essential Essential Disease Active [facility] hypertensi [...] Memoria l Outpati ent Clinics ADD ADD Problem Active [facility] (attention (attention Candice kes - deficit deficit Memoria disorder) disorder) l without without Outpati hyperactiv hyperactiv en t ity ity Clinics Morbid Morbid Problem Active [facility] obesity obesity [facility] Migraine Migraine Problem [facility] Anxiety Anxiety Problem Active [facility] Insomnia Insomnia Problem [facility] Cervical Cervical Problem Active [facility] radiculopa radiculopa Candice kes - thy thy [facility] Tingling Tingling Problem Active [facility] in in [facility] - extremitie extremitie Me moria s s l [facility] Adult Adult Problem Active [facility] general general 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 Family History Family Member Diagnosis Comments Start Date Stop Date Source Natural father No Known Problem [facility] Natural mother No Known Problem [facility] Social History Social Habit Start Date Stop Date Quantity Comments Source History SDOH Alcohol [facility] - Std Drinks [facility] History SDOH Alcohol [facility] Binge [facility] Sex Assigned At [facility] History SDOH Alcohol 2018-06-10 2018-06-[address] [facility] - Frequency 00:00:00 00:00:00 [facility] Center Smoking Status Start Date Stop Date Source Never [facility] Medications Ordered Filled Start Stop Current Ordering Indication Dosage Frequency Signature Comments Components Source Medication Medication Date Date Medication? Clinician (SIG) Name Name Phenergan Phenergan 2020- Yes Na Esparza [address] [facility] 9-15 -25 as needed [facility] - 00:[facility]: 00:00 [facility]oria 00 :[facility] Vyvanse Vyvanse Yes Na Esparza [address] [facility] 8-14 in the [facility] - 00:00: morning Memoria 00 [facility] aspirin 81 2020- No 81mg QD Take [address] [facility] MG chewable 3-20 03-19 tablet (81 L ukes - tablet 00:00: 23:59 mg total) Medic al 00 :00 by mouth Center daily. atorvastati Yes 40mg QD Take [address] [facility] n (LIPITOR) 3-19 tablets [facility] - 20 MG 00:00: (40 mg Medical tablet 00 total) by Center mouth every evening. dexlansopra Yes 60mg QD Take [address] [facility] zole 60 mg 3-18 by mouth [facility] - capsule 06:53: every Medical 30 evening. Center zolpidem Yes 10mg Take [address] [facility] (AMBIEN) 10 3-18 by mouth Luke s - mg tablet 06:53: every Medical 30 night as Center needed for Insomnia. ALPRAZolam Yes .5mg Take 0.[address] [facility] (XANAX) 0.5 3-18 mg by [facility] - MG tablet 06:53: mouth 2 Medic al 30 (two) Center times daily as needed for Anxiety. SUMAtriptan Yes 100mg Take [address] (IMITREX) 3-18 mg by [facility] - 100 MG 06:53: mouth once Medic al tablet 30 as needed Center for Headaches or Migraine. cetirizine Yes 10mg QD Take [address] (ZYRTEC) 10 3-18 by mouth Luke s - MG tablet 06:53: every Medical 30 evening. Center lisdexamfet Yes 60mg QD Take [address] amine 3-18 by mouth [facility] - (VYVANSE) 06:53: every Medical 60 MG 29 morning. [place] capsule losartan Yes 100mg QD Take [address] (COZAAR) 3-18 mg by [facility] - 100 MG 06:53: mouth Medical tablet 29 daily. [place] escitalopra Yes 20mg QD Take [address] m oxalate 3-18 by mouth [facility] - (LEXAPRO) 06:53: daily. Medica l 20 MG 29 [place] tablet multivit-mi Yes QD Take by [facility] nerals/FA/l 3-18 mouth [facility] - ycopene 06:53: daily. Medical (ONE-A-DAY 29 Center [employer]) glipiZIDE Yes 5mg Take [address] [facility] (GLUCOTROL) 3-18 by mouth 2 Candice kes - 5 MG tablet 06:43: (two) Medic al 50 times Center daily before meals Half of tab in am. Whole tab in the pm . metFORMIN Yes 1000mg Take 1,[address] [facility] (GLUCOPHAGE 3-18 mg by [facility] - ) 1000 MG 06:40: mouth 2 Medic al tablet 42 (two) Center times daily with breakfast and dinner. Dexilant Dexilant Yes Na Esparza [address] [facility] Xanax Xanax Yes Na Esparza [address] [facility] Imitrex Imitrex Yes Na Esparza [address] as needed [facility] Albuterol Albuterol Yes Na Esparza [address] [facility] Sulfate Sulfate needed [facility] - [facility]oria l [facility] ent Clinics Ambien Ambien Yes Na Esparza [address] [facility] at bedtime [facility] - as needed Memoria l [facility] Duloxetine Duloxetine Yes Na Esparza [address] HCl HCl [facility] Metformin Metformin Yes Na Esparza [address] [facility] HCl HCl with meals [facility] Glimepiride Glimepiride Yes Na Esparza [address] [facility] with meals [facility] Aripiprazol Aripiprazol Yes Na Esparza [address] e e [facility] Duloxetine Duloxetine Yes Na Esparza [address] [address] HCl HCl [facility] Lipitor Lipitor Yes Na Espazra [address] [facility] Duloxetine Duloxetine Yes Na Esparza [address] HCl HCl [facility] ent Clinics Cozaar Cozaar Yes Na Esparza [address] ent Clinics Aspirin Aspirin Yes Na Esparza [address] Adult Low Adult Low [facility] - Dose Dose Memoria l [facility] Invokana Invokana Yes Na Esparza [address] before the [facility] - first meal Memoria of the day l [facility] Immunizations Ordered Filled Immunization Date Status Comments [facility] e Immunization Name Name Afluria single dose Afluria single dose 2019-01-[address] [facility] - [facility]00 [facility] Procedures This patient has no known procedures. Encounters Start End Encounter Admission Attending Care Care Encounter Source Date/Time Date/Time Type Type Clinicians Facility Department ID 2019-12-09 2019-12-09 [facility] [id number] [facility] 13:18:00 13:18:00 [facility] Clinics 2019-12-09 2019-12-09 [facility] [id number] 10:31:00 10:31:00 [facility] Outpati ent Clinics 2019-11-07 2019-11-07 [facility] [id number] 12:37:00 12:37:00 [facility] Outpati ent Clinics 2019-09-05 2019-09-05 Outpatient Divina PIERCE Divina [facility] [id number] [place] 04:26:00 09:33:00 [facility] 2019-08-29 2019-08-29 [facility] [place] [id number] [address] 13:00:00 13:00:00 [facility] Outpati ent Clinics 2019-08-26 2019-08-26 [facility] [id number] 13:55:00 13:55:[address] [facility] Medicine Medicine Outpati ent Clinics 2019-08-21 2019-08-21 [facility] [id number] 16:51:00 16:51:00 t Sterling [employer] [facility] l Medicine Outpati ent Clinics 2019-08-13 2019-08-13 [facility] [id number] 14:52:00 14:52:00 t [employer] [facility] l Medicine Outpati ent Clinics 2019-07-31 2019-07-31 [facility] [id number] 11:06:00 11:06:00 t [employer] [facility] Medicine Outpati ent Clinics 2019-07-11 2019-07-11 [facility] [id number] 09:00:00 09:00:00 t [employer] [facility] Medicine Outpati ent Clinics 2019-07-09 2019-07-09 [facility] [id number] 14:59:00 14:59:00 t [employer] [facility] Medicine Outpati ent Clinics 2019-07-04 2019-07-04 [facility] [id number] 10:20:00 10:20:00 t [employer] [facility] Medicine Outpati ent Clinics 2019-07-03 2019-07-03 [facility] [id number] 14:02:00 14:02:[address] [facility] Medicine Medicine Outpati ent Clinics 2019-07-01 2019-07-01 [facility] [id number] 11:14:00 11:14:00 t [employer] [facility] Medicine Outpati ent Clinics 2019-05-30 2019-05-30 [facility] [id number] [address] 11:55:00 11:55:00 t [employer] [facility] l Medicine Outpati ent Clinics 2019-05-13 2019-05-13 [facility] [id number] 11:55:00 11:55:00 t Sterling [employer] Luke s - Drive [facility] Medicine l Medicine Outpati ent Clinics 2019-05-02 2019-05-02 [facility] [id number] 16:40:00 16:40:[address] Luke s - Drive [facility] Medicine l Medicine Outpati ent Clinics 2019-04-29 2019-04-29 [facility] [id number] 10:42:00 10:42:00 t [employer] Luke s - Drive [facility] Medicine l Medicine Outpati ent Clinics 2019-04-17 2019-04-17 [facility] [id number] 16:32:00 16:32:00 t [place] [employer] - Drive [facility] l Medicine Outpati ent Clinics 2019-03-17 2019-03-17 [facility] [id number] 14:08:00 14:08:00 t [employer] s - Drive [facility] Medicine Outpati ent Clinics 2019-03-05 2019-03-05 [facility] [id number] 14:23:00 14:23:00 t [employer] s - Drive [facility] l Medicine Outpati ent Clinics 2019-02-17 2019-02-17 [facility] [id number] 15:01:00 15:01:00 t Sterling [employer] s - Drive [facility] l Medicine Outpati ent Clinics 2019-02-05 2019-02-05 [facility] [id number] 12:12:00 12:12:00 t Sterling [employer] s - Drive [facility] Medicine l Medicine Outpati ent Clinics 2019-01-31 2019-01-31 [facility] [id number] 14:00:00 14:00:00 t Sterling [employer] s - Drive [facility] l Medicine Outpati ent Clinics 2019-01-23 2019-01-23 [facility] [id number] 08:39:00 08:39:00 t Sterling [employer] s - Drive [facility] l Medicine Outpati ent Clinics 2019-01-20 2019-01-20 [facility] [id number] 08:04:00 08:04:00 t Sterling [employer] [facility] [employer] 2018-12-19 2018-12-19 [facility] [id number] 10:00:00 10:00:00 t Bone Bone and [facility] - [facility] ent Clinics 2018-12-17 2018-12-17 [facility] [id number] 08:28:00 08:28:00 t Sterling [employer] [facility] 2018-12-11 2018-12-11 [facility] [id number] 11:29:00 11:29:00 t [facility] ent Clinics 2018-12-06 2018-12-06 [facility] [id number] 09:16:00 09:16:00 t [facility] of [facility] ent Clinics 2018-12-05 2018-12-05 [facility] [id number] 14:30:00 14:30:00 t [facility] ent Clinics 2018-11-28 2018-11-28 [facility] [id number] 09:30:00 09:30:00 t [facility] - [facility] Clinic of [facility] ent Clinics 2018-11-07 2018-11-07 [facility] [id number] 17:10:00 17:10:00 t Sterling [employer] [facility] [employer] 2018-10-14 2018-10-14 [facility] [id number] 08:58[facility]00 08:58[facility]00 [facility] 2018-10-07 2018-10-07 [facility] [id number] [facility] 16:40:00 16:40:[address] Luke s - Drive [facility] Medicine l Medicine Outpati ent Clinics 2018-09-04 2018-09-04 [facility] [id number] 15:15:00 15:15:[address] Luke s - Drive [facility] Medicine l Medicine Outpati ent Clinics 2018-07-23 2018-07-23 [facility] [id number] 15:57:00 15:57:[address] Luke s - Drive [facility] Medicine l Medicine Outpati ent Clinics 2018-07-04 2018-07-04 [facility] [id number] 16:40:00 16:40:[address] Luke s - Drive [facility] Medicine Outpati ent Clinics 2018-07-02 2018-07-02 [facility] [id number] 13:29:00 13:29:[address] Luke s - Drive [facility] Medicine Outpati ent Clinics 2018-06-21 2018-06-21 [facility] [id number] [address] 09:19:00 09:19:[address] Luke s - Drive [facility] Medicine Outpati ent Clinics 2018-06-18 2018-06-18 [facility] [id number] 15:45:00 15:45:[address] Luke s - Drive [facility] Medicine Medicine Outpati ent Clinics 2018-05-15 2018-05-15 [facility] [id number] 15:45:00 15:45:[address] Luke s - [facility] Medicine Medicine Outpati ent Clinics 2017-12-07 2017-12-07 [facility] [id number] [facility] 13:36:00 13:36:[address] Luke s - Drive [facility] Medicine Outpati ent Clinics 2017-10-15 2017-10-15 [facility] [id number] 13:00:00 13:00:[address] Luke s - Drive [facility] Medicine Outpati ent Clinics 2017-10-05 2017-10-05 [facility] [id number] 08:30:00 08:30:00 t [employer] [facility] Medicine Outpati ent Clinics 2017-07-25 2017-07-25 [facility] [id number] 16:13:00 16:13:00 t [employer] [facility] Medicine Outpati ent Clinics 2017-07-16 2017-07-16 [facility] [id number] 10:12:00 10:12:00 t [employer] [facility] Medicine Outpati ent Clinics 2017-07-16 2017-07-16 [facility] [id number] 10:05:00 10:05:00 t [employer] [facility] Medicine Outpati ent Clinics 2017-07-12 2017-07-12 [facility] [id number] 14:27:00 14:27:00 t [employer] [facility] [facility] Medicine Outpati ent Clinics 2017-07-08 2017-07-08 [facility] [id number] 16:23:00 16:23:00 t [employer] [facility] [facility] Medicine Outpati ent Clinics 2017-07-06 2017-07-06 [facility] [id number] 08:00:00 08:00:00 t [employer] [facility] Medicine Outpati ent Clinics Results Test Description Test Time Test Comments Results Result Comments Source GLUCOMETER GLUCOSE- LAB USE ONLY 2019-09-05 05:51:00 Test Item Value Reference Range Interpretation Comme nts GLUCOMETER (test code = GMG) 140 mg/dL 70-100 H Meter ID: [id number]: [id number] JAMI DENSON POCT-GLUCOSE [id number] 13:27:00 Test Item Value Reference Range Interpretation Comments POC-GLUCOSE METER 195 mg/dL 70-110 H TESTED AT [place] [address] ([facility]) (test code = [place] [address] POCT-GLUCOSE [id number] 06:19:00 Test Item Value Reference Range Interpretation Comments POC-GLUCOSE METER 145 mg/dL 70-110 H TESTED AT [facility] 6720 (BEAKER) (test code = [place] 1538) [id number] BASIC METABOLIC [id number] 06:13:00 Test Item Value Reference Range Interpretation [...] PATIEN TS. CBC W/PLT COUNT & AUTO [id number] 05:37:00 Test Item Value Reference Range Interpretation [...] PERCENT (BEAKER) (test code = 2801) POCT-GLUCOSE [id number] 23:38:00 Test Item Value Reference Range Interpretation Comments POC-GLUCOSE METER 176 mg/dL 70-110 H TESTED AT [facility] 6720 ([facility]) (test code = [facility] 1538) [id number] POCT-GLUCOSE [id number] 18:32:00 Test Item Value Reference Range Interpretation Comments POC-GLUCOSE METER 177 mg/dL 70-110 H TESTED AT [place] [id number] ([facility]) (test code = [facility] 1538) [address] MR, BRAIN, WITHOUT [id number] 17:46:00FINAL REPORT MR, BRAIN, WITHOUT CONTRAST INDICATION: [...] Unremarkable MRI of the brain. Signed: Agus Stevens Verified Date/Time: 06/10/2018 17:46:10 Reading Location: [facility] Radiology Reading Room POCT-GLUCOSE [id number] 12:31:00 Test Item Value Reference Range Interpretation Comments POC-GLUCOSE METER 148 mg/dL 70-110 H TESTED AT [facility] 6720 ([facility]) (test code = JACQUES Ordoñez [facility] 1538) [id number] HEMOGLOBIN [id number] 10:38:00 Test Item Value Reference Range Interpretation Comments HEMOGLOBIN A1C ([facility]) (test code = 7.7 % 4.3-6.1 H 368) LIPID [id number] 10:31:00 Test Item Value Reference Range Interpretation Comments TRIGLYCERIDES (AKER) (test code = 228 mg/dL 540) CHOLESTEROL ([facility]) (test code = 141 mg/dL 631) HDL CHOLESTEROL ([facility]) (test code 38 mg/dL = 976) LDL CHOLESTEROL CALCULATED ([facility]) 57 mg/dL (test code = 633) Triglyceride Reference Range: Low Risk <150 Borderline 150-199 High Risk 200-499 Very High Risk >=500Cholesterol Reference Range: Low Risk <200 Borderline 200-239 High Risk >240HDL Cholesterol Reference Range: Low Risk >=60 High Risk <40LDL Cholesterol Reference Range: Optimal <100 Near Optimal 100-129 Borderline 130-159 High 160-189 Very High >=190VITAMIN [id number] 08:18:00 Test Item Value Reference Range Interpretation Comments VITAMIN B12 (BEAKER) (test code = 701 pg/mL 213-816 774) TSH/FREE T4 IF [id number] 07:10:00 Test Item Value Reference Range Interpretation Comments THYROID STIMULATING HORMONE 3.11 uIU/mL 0.35-4.94 ([facility]) (test code = 772) TROPONIN [id number] 06:56:00 Test Item Value Reference Range Interpretation Comments TROPONIN I ([facility]) (test code = 397) < ng/mL 0.00-0.03 [...] acidosis, acute neurological disease, and persistent tachyarrhythmia.POCT-GLUCOSE [id number] 06:46:00 Test Item Value Reference Range Interpretation Comments POC-GLUCOSE METER 125 mg/dL 70-110 H TESTED AT [facility] 6720 ([facility]) (test code = JACQUES Ordoñez [place] 1538) [address] [id number] 06:38:00 Test Item Value Reference Range Interpretation Comments PARTIAL THROMBOPLASTIN TIME 30.3 seconds 22.5-36.0 ([facility]) (test code = 760) PROTHROMBIN [id number] 06:37:00 Test Item Value Reference Range Interpretation Comments PROTIME ([facility]) (test code = 12.6 seconds 11.7-14.7 759) INR ([facility]) (test code = 370) 0.9 <=5.9 RECOMMENDED COUMADIN/WARFARIN INR THERAPY RANGESSTANDARD DOSE: 2.0 - 3.0 Includes: PROPHYLAXIS forvenous thrombosis, systemic embolization; TREATMENT for venous thrombosis and/or pulmonary embolus.HIGH RISK: Target INR is 2.5-3.5 for patients with mechanical heart valves.
--- OUTSIDE RECORDS SUMMARY | 2019-12-10 22:38 | XMS REPORT ---
[...] A ctive Problem Migraine G43.909 Active Assessment History of acute pancreatitis Z87.19 Active Assessment Right upper quadrant abdominal pain R10.11 Active Problem Anxiety F41.9 Active Problem Hypertension I10 Active Problem Morbid obesity E66.01 Active Problem Hyperlipidemia E78.5 Active Problem Insomnia G47.00 Active Problem Cervical radiculopathy M54.12 Activ e Medications Medication Code Code Instructions Start End Status Dosage System Date Date Dexilant [facility] 39736939766 60 MG Orally Active 1 caps ule Once a day Xanax [facility] 44135772939 0.5 MG Orally Active 1 tabl et Twice a day prn anxiety attacks Imitrex ND 26106900639 100 MG Orally Active 1 tabl et ocne a day as as needed needed, may repeat 1 dose in 2 hours max of 200mg in 24 hours Albuterol [facility] 15361584653 108 (90 Base) Active 2 pu ffs as Sulfate MCG/ACT needed Inhalation every 6 hrs Ambien [facility] 58789645221 10 MG Orally Active 1 table t Once a day at bedtime as needed Duloxetine HCl [facility] 24833456517 60 MG Orally Active 1 capsule Once a day Metformin HCl [facility] 11011186029 1000 MG Orally Active 1 tablet Twice a day with meals Phenergan [facility] 53815364134 25 MG Orally Dec 08, Nov Active 1 ta blet every 12 hrs 2019, as needed 2019 Glimepiride [facility] 30822533776 4 MG Orally Active 1 ta blet twice a day with meals Aripiprazole [facility] 97258808133 10 MG Orally Active 1 tablet Once a day Vyvanse [facility] 41181065140 60 MG Orally Nov 06, Active 1 capsu le Once a day 2019 in the morning Duloxetine HCl [facility] 69315799685 30 MG Orally Active 1 capsule Once a day Lipitor [facility] 28459647329 40 MG Orally Active 1 table t Once a day Duloxetine HCl [facility] 72593054585 30 MG Orally Active 1 capsule Once a day with 60mg for total of 90 mg daily Cozaar [facility] 43590923198 100 MG Orally Active 1 tabl et Once a day Aspirin Adult [facility] 94344201676 81 MG Orally Active 1 tablet Low Dose Once a day Invokana [facility] 73139109480 100 MG Orally Active 1 tab let Once a day before the first meal of the day Results Name Result Date Reference Range Unit Abnormali ty Flag Amylase Level ----Amylase 46 [id number] 25-115 U/L Lipase ----Lipase 182 [id number] 73-393 U/L Summary Purpose eClinicalWorks Submission
[2019-12-11] MEDS ORDERED: ONDANSETRON 4 MG/2 ML VIAL ONE (00:18)
[2019-12-11] MEDS ORDERED: LIDOCAINE VISCOUS 2% SOLN 15 ML UDC ONE (00:18)
[2019-12-11] MEDS ORDERED: MAGNE/ALUM HYDROXD 30 ML UCUP ONE (00:18)
[2019-12-11] MEDS ORDERED: NA CHLORIDE 0.9% 1,000 ML ONE (00:41)
[2019-12-11 00:45] LABS: ALT/SGPT 65 U/L (12-78); AST/SGOT 21 U/L (15-37); Albumin 3.9 g/dL (3.4-5.0); Alkaline Phosphatase 113 U/L (45-117); BUN Blood Urea Nitrogen 11 mg/dL (7-18); Bicarbonate 26 mmol/L (21-32); Bilirubin Direct 0.2 mg/dL (0-0.2); Bilirubin Total 0.7 mg/dL (0.2-1.0); Glucose Level 112 mg/dL (74-106); Lipase 171 U/L (73-393); Potassium 3.9 mmol/L (3.5-5.1); Protein, Total 7.2 g/dL (6.4-8.2); Sodium Level 141 mmol/L (136-145)
[2019-12-11 00:51] LABS: Absolute Lymphocytes (CBC) 2.8 K/uL (0.7-4.9); Basophils % 0.4 % (0-1.3); Hematocrit 48.1 % (39.6-49.0); Lymphocytes % 39.3 % (15.3-44.8); MPV 7.9 fL (7.6-11.3); RBC Red Blood Cell Count 5.63 M/uL (4.33-5.43)
--- NOTE | 2019-12-11 01:14 | EDPHYS ---
Physician Documentation [facility] Name: Mitch Lobo Age: 39 yrs Sex: Male : 1980 Arrival Date: 12/10/2019 Time: 22:37 Bed 8 Private MD: ED Physician Reginald Ferro HPI: 12/10 01:57 This 39 yrs old Male presents to ER via Ambulatory with complaints of tw4 Abdominal Pain. 01:57 The patient presents with abdominal pain that is diffuse. The patient presents with tw4 abdominal pain in the epigastric area. Onset: The symptoms/episode began/occurred today. The symptoms do not radiate. Associated signs and symptoms: none. The symptoms are described as sharp. Modifying factors: The symptoms are alleviated by nothing, the symptoms are aggravated by nothing. Severity of pain: At its worst the pain was moderate in the emergency department the pain is unchanged. The patient has experienced similar episodes in the past, a few times. The patient has been recently seen at the [facility] Emergency Department, yesterday, for similar complaints labs were performed, CT scan was performed, the patient was told to return for a recheck. Historical: - Allergies: 12/09 22:45 No Known Allergies; bb - Home Meds: 22:45 alprazolam 0.5 mg Oral TbDL 1 tab PRN BID [Active]; Ambien 10 mg Oral tab 1 tab once bb daily [Active]; aspirin 81 mg Oral chew 1 tab once daily [Active]; Cozaar 100 mg Oral tab 1 tab once daily [Active]; Dexilant 60 mg Oral CpDB 1 cap once daily [Active]; duloxetine 90 mg Oral cpDR once daily [Active]; glimepiride 4 mg Oral tab 1 tab twice a day [Active]; Imitrex 100 mg Oral tab 1 tab as needed [Active]; Invokana 100 mg Oral tab 1 tab once daily [Active]; Lipitor 40 mg Oral tab 1 tab once daily [Active]; metformin 1,000 mg Oral tab 1 tab 2 times per day [Active]; Vyvanse 60 mg Oral cap once daily [Active]; Tylenol-Codeine #3 oral oral [Active]; hyoscymine [Active]; Sucralfate Oral [Active]; Dicyclomine Oral [Active]; - PMHx: 22:45 Diabetes - NIDDM; Gastric Reflux; High Cholesterol; Hypertension; Pancreatitis; bb - PSHx: 22:45 Appendectomy; Cholecystectomy; [place]'s tendon; bb - Immunization history:: Adult Immunizations up to date. - Social history:: Smoking status: Patient denies any tobacco usage or history of. ROS: 12/10 01:57 Constitutional: Negative for fever, chills, and weight loss, Eyes: Negative for injury, tw4 pain, redness, and discharge, Cardiovascular: Negative for chest pain, palpitations, and edema, Respiratory: Negative for shortness of breath, cough, wheezing, and pleuritic chest pain, Back: Negative for injury and pain, MS/Extremity: Negative for injury and deformity, Skin: Negative for injury, rash, and discoloration, Neuro: Negative for headache, weakness, numbness, tingling, and seizure. Abdomen/GI: Positive for abdominal pain, Negative for nausea and vomiting, nausea, vomiting, and diarrhea, anorexia, dysphagia, hematemesis, black/tarry stool, rectal pain, rectal bleeding. Exam: 01:57 Constitutional: This is a well developed, well nourished patient who is awake, alert, tw4 and in no acute distress. Head/Face: Normocephalic, atraumatic. Chest/axilla: Normal chest wall appearance and motion. Nontender with no deformity. No lesions are appreciated. Cardiovascular: Regular rate and rhythm with a normal S1 and S2. No gallops, murmurs, or rubs. Normal PMI, no JVD. No pulse deficits. Respiratory: Lungs have equal breath sounds bilaterally, clear to auscultation and percussion. No rales, rhonchi or wheezes noted. No increased work of breathing, no retractions or nasal flaring. Back: No spinal tenderness. No costovertebral tenderness. Full range of motion. MS/ Extremity: Pulses equal, no cyanosis. Neurovascular intact. Full, normal range of motion. Neuro: Awake and alert, GCS 15, oriented to person, place, time, and situation. Cranial nerves II-XII grossly intact. Motor strength 5/5 in all extremities. Sensory grossly intact. Cerebellar exam normal. Normal gait. 01:57 Abdomen/GI: Inspection: abdomen appears normal, Bowel sounds: normal, Palpation: moderate abdominal tenderness. Vital Signs: 12/09 22:41 BP 125 / 80; Pulse 101; Resp 18 S; Temp 97.9(O); Pulse Ox 99% on R/A; Weight 122.02 kg bb (R); Height 5 ft. 10 in. (177.80 cm) (R); Pain 8/10; 22:41 Body Mass Index 38.60 (122.02 kg, 177.80 cm) bb MDM: 23:49 Patient medically screened. 12/10 01:57 Data reviewed: vital signs, nurses notes. Data interpreted: Pulse oximetry: tw4 Interpretation: normal. Counseling: I had a detailed discussion with the patient and/or guardian regarding: the historical points, exam findings, and any diagnostic results supporting the discharge/admit diagnosis. 01:59 Differential diagnosis: pancreatitis, Peptic Ulcer Disease, Perf. Duodenal Ulcer, Perf. tw4 Gastric Ulcer. Medication response: GI Cocktail relieved the patient's pain. The symptoms have resolved. Response to treatment: and as a result, I will discharge patient. Special discussion: I discussed with the patient/guardian in detail that at this point there is no indication for admission to the hospital. It is understood, however, that if the symptoms persist or worsen the patient needs to return immediately for re-evaluation. 12/09 23:49 Order name: Basic Metabolic Panel; Complete Time: 01:12 12/10 01:12 Interpretation: Normal except: GLUC 112; CA 8.3. 12/09 23:49 Order name: CBC with Diff; Complete Time: 01:12 12/10 01:12 Interpretation: Normal except: RBC 5.63. 12/09 23:49 Order name: Hepatic Function; Complete Time: 01:12 12/10 01:12 Interpretation: Within normal limits. 12/09 23:49 Order name: Lipase; Complete Time: 01:12 12/10 01:13 Interpretation: Within normal limits: LIP 171. 12/09 23:49 Order name: IV Saline Lock; Complete Time: 00:18 12/09 23:49 Order name: Labs collected and sent; Complete Time: 00:18 4 Administered Medications: 00:18 Drug: GI Cocktail without - (Maalox Suspension 30 ml, Lidocaine Liquid 2 % 15 vc ml) Route: PO; 01:02 Follow up: Response: No adverse reaction; Pain is decreased vc 00:18 Drug: Zofran (Ondansetron) 4 mg Route: IVP; Site: right antecubital; vc 01:02 Follow up: Response: No adverse reaction vc 00:30 Drug: NS 0.9% 1000 ml Route: IV; Rate: 1 bolus; Site: left antecubital; vc Disposition: 12/11/19 01:14 Discharged to Home. Impression: Gastritis, unspecified, without bleeding. - Condition is Stable. - Discharge Instructions: Gastritis, Adult. - Prescriptions for Protonix 40 mg Oral Tablet - take 1 tablet by ORAL route once daily; 30 tablet. - Medication Reconciliation Form, Thank You Letter, Antibiotic Education, Prescription Opioid Use form. - Follow up: Private Physician; When: Upon discharge from the Emergency Department; Reason: Recheck today's complaints, Continuance of care, Re-evaluation by your physician. - Problem is new. - Symptoms have improved. Signatures: Dispatcher [employer] EDGuillermina Wilkins RN RN Reginald Rubio MD MD tw4 Arturo Ogden RN RN rr5 Cierra Roman RN RN vc Corrections: (The following items were deleted from the chart) 01:20 01:14 12/11/2019 01:14 Discharged to Home. Impression: Gastritis, unspecified, without rr5 bleeding. Condition is Stable. Forms are Medication Reconciliation Form, Thank You Letter, Antibiotic Education, Prescription Opioid Use. Follow up: Private Physician; When: Upon discharge from the Emergency Department; Reason: Recheck today's complaints, Continuance of care, Re-evaluation by your physician. Problem is new. Symptoms have improved. tw4
--- NOTE | 2019-12-11 01:14 | ER ---
Nurse's Notes [facility] Name: Mitch Lobo Age: 39 yrs Sex: Male : 1980 Arrival Date: 12/10/2019 Time: 22:37 Bed 8 Private MD: Diagnosis: Gastritis, unspecified, without bleeding Presentation: 12/09 22:41 Chief complaint: Patient states: he was seen here last night for abdominal pain and bb told to come back if symptoms worsen and they have his pain is constant currently 8/10 pt denies vomiting or diarrhea. Coronavirus screen: At this time, the client does not indicate any symptoms associated with coronavirus-19. Ebola Screen: No symptoms or risks identified at this time. Initial Sepsis Screen: Does the patient meet any 2 criteria? No. Patient's initial sepsis screen is negative. Does the patient have a suspected source of infection? No. Patient's initial sepsis screen is negative. Risk Assessment: Do you want to hurt yourself or someone else? Patient reports no desire to harm self or others. Onset of symptoms was December 06, 2019. 22:41 Method Of Arrival: Ambulatory bb 22:41 Acuity: JOSE M 3 bb Triage Assessment: 22:45 General: Appears uncomfortable, Behavior is calm, cooperative. Pain: Complains of pain bb in abdomen. GI: Abdomen is obese, Reports upper abdominal pain. Historical: - Allergies: 22:45 No Known Allergies; bb - Home Meds: 22:45 alprazolam 0.5 mg Oral TbDL 1 tab PRN BID [Active]; Ambien 10 mg Oral tab 1 tab once bb daily [Active]; aspirin 81 mg Oral chew 1 tab once daily [Active]; Cozaar 100 mg Oral tab 1 tab once daily [Active]; Dexilant 60 mg Oral CpDB 1 cap once daily [Active]; duloxetine 90 mg Oral cpDR once daily [Active]; glimepiride 4 mg Oral tab 1 tab twice a day [Active]; Imitrex 100 mg Oral tab 1 tab as needed [Active]; Invokana 100 mg Oral tab 1 tab once daily [Active]; Lipitor 40 mg Oral tab 1 tab once daily [Active]; metformin 1,000 mg Oral tab 1 tab 2 times per day [Active]; Vyvanse 60 mg Oral cap once daily [Active]; Tylenol-Codeine #3 oral oral [Active]; hyoscymine [Active]; Sucralfate Oral [Active]; Dicyclomine Oral [Active]; - PMHx: 22:45 Diabetes - NIDDM; Gastric Reflux; High Cholesterol; Hypertension; Pancreatitis; bb - PSHx: 22:45 Appendectomy; Cholecystectomy; [place]'s tendon; bb - Immunization history:: Adult Immunizations up to date. - Social history:: Smoking status: Patient denies any tobacco usage or history of. Screenin:45 Abuse screen: Denies threats or abuse. Nutritional screening: No deficits noted. vc Tuberculosis screening: No symptoms or risk factors identified. Fall Risk None identified. Assessment: 12/10 00:00 GI: Bowel sounds present X 4 quads. Abd is soft Abdomen is tender to palpation Reports vc upper abdominal pain, intolerance of food, nausea. 00:00 General: Appears in no apparent distress. uncomfortable, obese, Behavior is calm, vc cooperative, appropriate for age. Pain: Complains of pain in abdomen Pain does not radiate. Pain currently is 8 out of 10 on a pain scale. Quality of pain is described as sharp, Pain began gradually, Is episodic, Alleviated by medications, nothing. Aggravated by foods. Neuro: Level of Consciousness is awake, alert, obeys commands, Oriented to person, place, time, situation, Appropriate for age. Cardiovascular: Capillary refill < 3 seconds. Respiratory: Airway is patent Respiratory effort is even, unlabored, Respiratory pattern is regular, symmetrical. : No signs and/or symptoms were reported regarding the genitourinary system. Derm: Skin is intact, is healthy with good turgor. Musculoskeletal: Circulation, motion, and sensation intact. Range of motion: intact in all extremities. 01:00 Reassessment: Patient and/or family updated on plan of care and expected duration. Pain vc level reassessed. Patient is alert, oriented x 3, equal unlabored respirations, skin warm/dry/pink. Patient states feeling better. Patient states symptoms have improved. Vital Signs: 12/09 22:41 BP 125 / 80; Pulse 101; Resp 18 S; Temp 97.9(O); Pulse Ox 99% on R/A; Weight 122.02 kg bb (R); Height 5 ft. 10 in. (177.80 cm) (R); Pain 8/10; 22:41 Body Mass Index 38.60 (122.02 kg, 177.80 cm) bb ED Course: 22:37 Patient arrived in ED. cl3 22:43 Triage completed. bb 22:45 Arm band placed on Patient placed in an exam room, on a stretcher, on pulse oximetry. bb 23:47 Cierra Roman RN is Primary Nurse. vc 23:49 Reginald Ferro MD is Attending Physician. tw4 12/10 00:00 Patient has correct armband on for positive identification. Bed in low position. Call vc light in reach. Side rails up X2. Pulse ox on. NIBP on. Warm blanket given. 01:20 No provider procedures requiring assistance completed. IV discontinued, intact, vc bleeding controlled, No redness/swelling at site. Pressure dressing applied. Administered Medications: 00:18 Drug: GI Cocktail without - (Maalox Suspension 30 ml, Lidocaine Liquid 2 % 15 vc ml) Route: PO; 01:02 Follow up: Response: No adverse reaction; Pain is decreased vc 00:18 Drug: Zofran (Ondansetron) 4 mg Route: IVP; Site: right antecubital; vc 01:02 Follow up: Response: No adverse reaction vc 00:30 Drug: NS 0.9% 1000 ml Route: IV; Rate: 1 bolus; Site: left antecubital; vc Outcome: 01:14 Discharge ordered by . tw4 01:20 Patient left the ED. rr5 01:20 Discharged to home ambulatory. vc 01:20 Condition: good 01:20 Discharge instructions given to patient, Instructed on discharge instructions, follow up and referral plans. Demonstrated understanding of instructions, follow-up care, Prescriptions given X 1. Signatures: Guillermina Belle, RN RN bb Reginald Ferro MD MD tw4 Arturo Ogden RN RN rr5 Nick Guillermo cl3 Cierra Roman RN RN vc
[2019-12-11 01:38] VITALS: BP 125/80; TEMP 97.9; O2SAT 99
== END 2019-12-11 01:20 | disposition home or self-care (01) ==
LOC: ER 22:34
DX: K29.70 Gastritis, unspecified, without bleeding (principal); I10 Essential (primary) hypertension; E11.9 Type 2 diabetes mellitus without complications; E78.00 Pure hypercholesterolemia, unspecified; Z79.82 Long term (current) use of aspirin
CPT/HCPCS: 85025; 80048; 36415; 80076; 83690; 96374; 99283; J7030; J2405

== ENCOUNTER 2019-12-17 22:58 | Emergency (ER) | payer OTHER ==
--- OUTSIDE RECORDS SUMMARY | 2019-12-17 23:00 | XMS REPORT | Clinical Summary ---
:1980 Author Organization [facility] Address [address] [place] [address] Care Team Providers Name Role Phone EsparzaKristyn victoria DO Primary Care Provider Allergies No Known Allergies Medications Medication Sig [...] (40 mg total) by mouth every evening. acetaminophen-codeine Take 1 tablet 0 Active (TYLENOL #3) 300-30 mg by mouth every per tablet 4 (four) hours as needed for Pain. promethazine Take 25 mg by 0 Act shadi (PHENERGAN) 25 MG mouth every 6 tablet (six) hours as needed for Nausea. DULoxetine (CYMBALTA) Take 30 mg by 0 Active 30 MG capsule mouth daily. sucralfate (CARAFATE) 1 Take 1 g by 0 Active gram tablet mouth 4 (four) times daily. dicyclomine (BENTYL) 20 Take 20 mg by 0 Active mg tablet mouth every 6 (six) hours. glimepiride (AMARYL) 4 Take 4 mg by 0 Active MG tablet mouth every morning before breakfast. canagliflozin Take 100 mg by 0 A ctive (INVOKANA) 100 mg mouth daily. tablet aspirin 81 MG EC tablet Take 81 mg by 0 Active mouth daily. aspirin 81 MG chewable Take 1 tablet 90 tablet 3 06/12/2018 tablet (81 mg total) by mouth daily. 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 Last Filed Vital Signs Vital Sign Reading Time Taken Blood Pressure 147/93 12/15/2019 9:38 PM CDT Pulse 107 12/15/2019 9:38 PM CDT Temperature 36.3 C (97.4 F) 12/15/2019 9:38 PM CDT Respiratory Rate 20 12/15/2019 9:38 PM CDT Oxygen Saturation 98% 12/15/2019 9:38 PM CDT Inhaled Oxygen Concentration - - Weight 122 kg (269 lb) 12/15/2019 9:38 PM CDT Height 177.8 cm (5' 10") 12/15/2019 9:38 PM CDT Body Mass Index 38.6 12/15/2019 9:38 PM CDT Plan of Treatment Health Maintenance Due Date Last Done Comments PNEUMOCOCCAL VACCINE 2-64 YEARS AT RISK (1 of 1 - 09/26/1985 PPSV23) DIABETIC EYE EXAM 09/26/1989 DIABETIC FOOT EXAM 09/26/1989 URINE MICROALBUMIN 09/26/1989 HEMOGLOBIN A1C 12/11/2018 06/10/2018 INFLUENZA VACCINE (#1) 2019 01/31/2019 LIPID PANEL 06/10/2021 06/10/2018 Results Not on fileafter 12/16/2018 Insurance Payer Benefit Plan / Group Subscriber ID Type Phone A ddress [employer] - MGD CARE C[employer] HMO/POS/OPEN ACCESS xxxxxxxxxxx HMO/POS Guarantor Name Account Type Relation to Date of Phone Billing Patient Address Mitch Lobo Personal/Family Self 1980 [facility] [address] (Home) [place] [address] Advance Directives For more information, please contact:[place] [phone] [facility] [place], [place] [phone] Code Status Date Activated Date Inactivated Comments Full Code 06/10/2018 5:59 AM 06/11/2018 7:04 PM This code status was determined by: Patient
--- OUTSIDE RECORDS SUMMARY | 2019-12-17 23:01 | XMS REPORT ---
[...] End Status Dosage System Date Date Dexilant [facility] 74183834020 60 MG Orally Active 1 caps ule Once a day Xanax [facility] 04146827323 0.5 MG Orally Active 1 tabl et Twice a day prn anxiety attacks Imitrex ND 52630036803 100 MG Orally Active 1 tabl et ocne a day as as needed needed, may repeat 1 dose in 2 hours max of 200mg in 24 hours Albuterol [facility] 01691539545 108 (90 Base) Active 2 pu ffs as Sulfate MCG/ACT needed Inhalation every 6 hrs Ambien [facility] 27296026512 10 MG Orally Active 1 table t Once a day at bedtime as needed Duloxetine HCl [facility] 42579300127 60 MG Orally Active 1 capsule Once a day Metformin HCl [facility] 94257744414 1000 MG Orally Active 1 tablet Twice a day with meals Phenergan [facility] 26831519494 25 MG Orally Dec 08, Nov Active 1 ta blet every 12 hrs 2019, as needed 2019 Glimepiride [facility] 27881015147 4 MG Orally Active 1 ta blet twice a day with meals Aripiprazole [facility] 10599677870 10 MG Orally Active 1 tablet Once a day Vyvanse [facility] 99253590693 60 MG Orally Nov 06, Active 1 capsu le Once a day 2019 in the morning Duloxetine HCl [facility] 50061291451 30 MG Orally Active 1 capsule Once a day Lipitor [facility] 48248963967 40 MG Orally Active 1 table t Once a day Duloxetine HCl [facility] 70517288336 30 MG Orally Active 1 capsule Once a day with 60mg for total of 90 mg daily Cozaar [facility] 70690525496 100 MG Orally Active 1 tabl et Once a day Aspirin Adult [facility] 74612984062 81 MG Orally Active 1 tablet Low Dose Once a day Invokana [facility] 86667371359 100 MG Orally Active 1 tab let Once a day before the first meal of the day Results Name Result Date Reference Range Unit Abnormali ty Flag Amylase Level ----Amylase 46 [id number] 25-115 U/L Lipase ----Lipase 182 [id number] 73-393 U/L Summary Purpose [employer]Clinical[employer] Submission
--- OUTSIDE RECORDS SUMMARY | 2019-12-17 23:01 | XMS REPORT ---
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 Problem Weakness of left side of body R53.1 Active Problem RUQ abdominal pain R10.11 Active Problem Adult general medical exam Z00.00 A ctive Problem ADD (attention deficit disorder) F98.8 Active without hyperactivity Problem History of CVA (cerebrovascular Z86.73 Active accident) Problem Hospital discharge follow-up Z09 Active Problem Migraine G43.909 Active Problem Morbid obesity E66.01 Active Problem Hypertension I10 Active Problem Hyperlipidemia E78.5 Active Problem Insomnia G47.00 Active Problem Cervical radiculopathy M54.12 Activ e Problem Anxiety F41.9 Active Problem Tingling in extremities R20.2 Acti ve Medications Medication Code Code Instructions Start End Status Dosage System Date Date Imitrex [facility] 81916101030 100 MG Orally Active 1 tabl et as ocne a day as needed needed, may repeat 1 dose in 2 hours max of 200mg in 24 hours Hyoscyamine [facility] 07238703573 0.125 MG Orally Dec 09, Nov Active 1 tablet on Sulfate Three times a 2019, the tongue day 2019 and allow to dissolve as needed Cozaar ND 75183669934 100 MG Orally Active 1 tabl et Once a day Ambien ND 71149808789 10 MG Orally Active 1 table t at Once a day bedtime as needed Lipitor ND 49938852059 40 MG Orally Active 1 table t Once a day Aripiprazole ND 73160268141 10 MG Orally Active 1 tablet Once a day Duloxetine HCl ND 26694117590 30 MG Orally Active 1 capsule Once a day Tylenol # 3 NDC 0 300/30mg PO Dec 09Nov Active one tab every 8 hours 2019, prn pain 2019 Metformin HCl [facility] 04549957993 1000 MG Orally Active 1 tablet Twice a day with meals Phenergan [facility] 00051737331 25 MG Orally Dec 08Nov Active 1 ta blet as every 12 hrs 2019, needed [address] [facility] 57520805083 60 MG Orally Active 1 caps ule Once a day Invokana [facility] 46285624726 100 MG Orally Active 1 tab let Once a day before the first meal of the day Aspirin Adult [facility] 49662611342 81 MG Orally Active 1 tablet Low Dose Once a day Albuterol [facility] 38258752291 108 (90 Base) Active 2 pu ffs as Sulfate MCG/ACT needed Inhalation every 6 hrs Sucralfate [facility] 00307617498 1 GM Orally Dec 08Jan 07, Active 1 ta blet on 2019 2019 an empty stomach 1 hour before meals and at bedtime. Glimepiride [facility] 11362741725 4 MG Orally Active 1 ta blet twice a day with meals Vyvanse [facility] 00424244434 60 MG Orally Nov 06, Active 1 capsu le Once a day 2019 in the morning Duloxetine HCl [facility] 67445127434 30 MG Orally Active 1 capsule Once a day with 60mg for total of 90 mg daily Duloxetine HCl [facility] 62638794661 60 MG Orally Active 1 capsule Once a day Xanax [facility] 80262325281 0.5 MG Orally Active 1 tabl et Twice a day prn anxiety attacks Results No Known Results Summary Purpose eClinicalWorks Submission
--- OUTSIDE RECORDS SUMMARY | 2019-12-17 23:01 | XMS REPORT | Continuity of Care Document ---
:1980 Author Organization [facility] t Address [address] [place] [address] Care Team Providers Name Role Phone Kristyn Esparza DO Primary Care Physician [place], [facility] Attending Clinician DR KARI Attending Clinician Unavailable CHRISTA EDWARDS Attending Clinician Unavailable DR KARI Admitting Clinician Unavailable CHRISTA EDWARDS Admitting Clinician Unavailable Payers Payer Name Policy Type Policy Number Effective Date Expiration Date S heather CIGNA - MGD xxxxxxxxxxx [facility] CAREC[facility]NA - Medical HMO/POS/OPEN Center ACCESSxxxxxxxxx xxHMO/POS Problems Condition Condition Condition Status Onset Resolution Last Treating Co mments Source Name Details Category Date Date Treatment Clinician Date Stroke Stroke Disease Active [facility] (cerebrum) 06-10 Candice kes - 00:00: Medical 00 Center Type 2 Type [address] [facility] diabetes diabetes 06-10 [facility] - mellitus, mellitus, 00:00: Medi ramírez without without 00 Center long-term long-term current current use of use of insulin insulin Hyperlipid Hyperlipid Disease Active [facility] emia emia 18 [facility] - 00:00: Medical 00 Center Essential Essential Disease Active [facility] hypertensi hypertensi -18 Candice kes - on on 00:00: Medical 00 Center Diabetes Diabetes Problem Active [facility] mellitus, mellitus, Luke [facility] - type 2 type 2 Memoria l Outpati ent Clinics Gastroesop Gastroesop Problem Active [facility] hageal hageal [facility] - reflux reflux Memoria disease disease l Outpati ent Clinics Cervicalgi Cervicalgi Problem Active [facility] Hyperlipid Hyperlipid Problem Active [facility] emia emia [facility] Hypertensi Hypertensi Problem Active [facility] on on [facility] ADD ADD Problem Active [facility] (attention (attention Candice kes - deficit deficit Memoria disorder) disorder) l without without [facility] hyperactiv hyperactiv en t ity ity Clinics Morbid Morbid Problem Active [facility] obesity obesity [facility] Migraine Migraine Problem [facility] Anxiety Anxiety Problem Active [facility] Insomnia Insomnia Problem Active [facility] Cervical Cervical Problem Active [facility] radiculopa radiculopa Candice kes - thy thy Memoria l [facility] Tingling Tingling Problem Active [facility] in in [facility] - extremitie extremitie Me moria s s l [facility] Adult Adult Problem Active [facility] general general Valor Healthoria exam exam l [facility] History of History of Problem Active [facility] CVA CVA [facility] - (cerebrova (cerebrova Me moria scular scular l accident) accident) Outp ati ent Clinics Weakness Weakness Problem Active [facility] of left of left [facility] - side of side of Memoria body body l [facility] Hospital Hospital Problem Active [facility] discharge discharge Luke [facility] - follow-up follow-up Gene sonido l [facility] 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 Family History Family Member Diagnosis Comments Start Date Stop Date Source Natural father No Known Problem [facility] Natural mother No Known Problem [facility] Social History Social Habit Start Date Stop Date Quantity Comments Source History SDOH Alcohol [facility] History SDOH Alcohol [facility] Sex Assigned At [facility] Candice kes - [facility] Center History SDOH Alcohol 2018-06-10 2018-06-10 2 MAYCOL Salazar - Frequency 00:00:00 00:00:00 Medical Center Smoking Status Start Date Stop Date Source Never smoker [facility] ry [facility] edical Center Medications Ordered Filled Start Stop Current Ordering Indication Dosage Frequency Signature Comments Components Source Medication Medication Date Date Medication? Clinician (SIG) Name Name sucralfate 2020-0 Yes 1g Q.25D Take [address] (CARAFATE) 9-21 by mouth 4 Gm es - 1 gram 21:44: (four) Medical tablet 52 times Center daily. dicyclomine 2020-0 Yes 20mg Take [address] [facility] (BENTYL) 20 9-21 by mouth Luke s - mg tablet 21:44: every 6 Medic al 52 (six) Center hours. glimepiride 2020-0 Yes 4mg Take [address] (AMARYL) 4 -21 by mouth [facility] - MG tablet 21:44: every Medical 52 morning Center before breakfast. canaglifloz 2020-0 Yes 100mg QD Take [address] in 9-21 mg by [facility] - (INVOKANA) 21:44: mouth Medica l 100 mg 52 daily. Center tablet aspirin 81 2020-0 Yes 81mg QD Take [address] MG EC -21 by mouth [facility] - tablet 21:44: daily. Medical 52 Center acetaminoph 2020-0 Yes 1{tbl} Take [address] en-codeine 9-21 tablet by Luke s - (TYLENOL 21:44: mouth Medical #3) 300-30 51 every 4 Center mg per (four) tablet hours as needed for Pain. promethazin 2020-0 Yes 25mg Take [address] [facility] e 9-21 by mouth [facility] - (PHENERGAN) 21:44: every 6 Med ical 25 MG 51 (six) Center tablet hours as needed for Nausea. DULoxetine 2020-0 Yes 30mg QD Take [address] (CYMBALTA) 9-21 by mouth [facility] - 30 MG 21:44: daily. Medical capsule 51 Center Hyoscyamine Hyoscyamine 2020-0 2020- Yes Na Esparza [address] [facility] Sulfate Sulfate 12-09 on the [facility] - 00:00: 00:00 tongue and Memori a 00 :00 allow to l dissolve Outpati as needed ent Clinics Tylenol # 3 Tylenol # 3 2020- Yes Na Esparza one tab [facility] -16 12-16 [facility] - 00:00: 00:00 Memoria 00 :00 l Outpati ent Clinics Sucralfate Sucralfate 2020- Yes Na Esparza [address] [facility] 9-15 -15 on an [facility]ukes - 00:00: 00:00 empty Memoria 00 :00 stomach 1 l hour Outpati before ent meals and Clinics at bedtime. Phenergan Phenergan 2020- Yes Na Esparza [address] [facility] -15 12-18 as needed [facility]ukes - 00:00: 00:00 Memoria 00 :00 l Outpati ent Clinics Vyvanse Vyvanse 2019-0 Yes Na Esparza [address] [facility] 8-14 in the [facility] - 00:00: morning Memoria 00 l Outpati ent Clinics aspirin 81 2020- No 81mg [...] 06:53: every Medical 30 evening. Center zolpidem 2018-0 Yes 10mg Take [address] [facility] (AMBIEN) 10 3-18 by mouth Luke s - mg tablet 06:53: every Medical 30 night as Center needed for Insomnia. ALPRAZolam 2019-0 Yes .5mg Take 0.[address] (XANAX) 0.5 3-18 mg by [facility]ukes - MG tablet 06:53: mouth 2 Medic al 30 (two) Center times daily as needed for Anxiety. SUMAtriptan 2019-0 Yes 100mg Take [address] (IMITREX) 3-18 mg by [facility] - 100 MG 06:53: mouth once Medic al tablet 30 as needed Center for Headaches or Migraine. cetirizine Yes 10mg QD Take [address] (ZYRTEC) 10 3-18 by mouth Luke s - MG tablet 06:53: every Medical 30 evening. New Site lisdexamfet Yes 60mg QD Take [address] amine 3-18 by mouth [facility] - (VYVANSE) 06:53: every Medical 60 MG 29 morning. New Site capsule losartan Yes 100mg QD Take [address] (COZAAR) 3-18 mg by [facility]ukes - 100 MG 06:53: mouth Medical tablet 29 daily. New Site escitalopra Yes 20mg QD Take [address] m oxalate 3-18 by mouth [facility] - (LEXAPRO) 06:53: daily. Medica l 20 MG 29 New Site tablet multivit-mi Yes QD Take by [facility] nerals/FA/l 3-18 mouth [facility]ukes - ycopene 06:53: daily. Medical (ONE-A-DAY 29 New Site MEN[employer] ORAL) glipiZIDE Yes 5mg Take 5 [...] Center times daily with breakfast and dinner. Xanax Xanax Yes Na Esparza [address] [facility] Imitrex Imitrex Yes Na Esparza [address] as needed [facility] Cozaar Cozaar Yes Na Esparza [address] [facility] Ambien Ambien Yes Na Esparza [address] [facility] at bedtime [facility] - as needed [facility]oria l [facility] Lipitor Lipitor Yes Na Esparza [address] [facility] Aripiprazol Aripiprazol Yes Na Esparza [address] [facility] [facility] e e [facility] Duloxetine Duloxetine Yes Na Esparza [address] HCl HCl [facility] - Memoria l [facility] Metformin Metformin Yes Na Esparza [address] HCl HCl with meals [facility] - Memoria l [facility] Dexilant Dexilant Yes Na Esparza [address] [facility] Invokana Invokana Yes Na Esparza [address] before the [facility]ukes - first meal Memoria of the day l [facility] Aspirin Aspirin Yes Na Esparza [address] Adult Low Adult Low [facility] - Dose Dose Memoria l [facility] Albuterol Albuterol Yes Na Esparza [address] [facility] Sulfate Sulfate needed [facility] - Memoria l [facility] Glimepiride Glimepiride Yes Na Esparza [address] with meals [facility] - Memoria l [facility] Duloxetine Duloxetine Yes Na Esparza [address] HCl HCl [facility] - Memoria l [facility] Duloxetine Duloxetine Yes Na Esparza [address] HCl HCl [facility] - Memoria l [facility] Immunizations Ordered Filled Immunization Date Status Comments [facility] Immunization Name Name Afluria single dose Afluria single dose 2019-01-31 Completed [facility] - 00:00:[address] [facility] Clinics Vital Signs Vital Name Observation Time Observation Value Comments Source Systolic blood 2019-12-15 21:38:00 147 mm[Hg] [facility] Diastolic blood 2019-12-15 21:38:00 93 mm[Hg] [facility] Heart rate 2019-12-15 21:38:00 107 /min [facility] Body temperature 2019-12-15 21:38:00 36.33 Karen [facility] Respiratory rate 2019-12-15 21:38:00 20 /min [facility] Body height 2019-12-15 21:38:00 177.8 cm [facility] Body weight Measured 2019-12-15 21:38:00 122.018 kg [facility] BMI 2019-12-15 21:38:00 38.60 kg/m2 [facility] Oxygen saturation in 2019-12-15 21:38:00 98 /min [facility] - Arterial blood by Medical Ce nter Pulse oximetry Procedures This patient has no known procedures. Plan of Care Planned Activity Planned Date Details Comments Source Future Scheduled 2021-06-[address] [facility] - Test 00:00:00 (procedure) [code = Medical Center 46963833] Future Scheduled 2019-11-25 INFLUENZA VACCINE (#1) [facility] - Test 00:00:00 [code = INFLUENZA Medical Ce nter VACCINE (#1)] Future Scheduled 2018-12-[address] Candice kes - Test 00:00:00 measurement Medical Center (procedure) [code = 47196854] Future Scheduled 1989-09-[address] EXAM [facility] - Test 00:00:00 [code = DIABETIC EYE Medical Center EXAM] Future Scheduled 1989-09-[address] G[facility] - Test 00:00:00 examination Medical Center (regime/therapy) [code = 908459515] Future Scheduled 1989-09-26 Urine screening for [facility] - Test 00:00:00 protein (procedure) Medical Center [code = 177289975] Future Scheduled 1985-09-[address] [facility] - Test 00:00:00 2-64 YEARS AT RISK (1 Medica l Center of 1 - PPSV23) [code = PNEUMOCOCCAL VACCINE 2-64 YEARS AT RISK (1 of 1 - PPSV23)] Encounters Start End Encounter Admission Attending Care Care Encounter Source Date/Time Date/Time Type Type Clinicians Facility Department ID 2019-12-10 2019-12-10 Outpatient Kinjal Huff [id number] [facility] 11:37:00 11:37:00 t jigl [facility] Family Medicine l Medicine Outpati ent Clinics 2019-12-09 2019-12-09 Outpatient Kinjal Huff [id number] [facility] 13:18:00 13:18:00 t jigl [facility] Family Medicine l Medicine Outpati ent Clinics 2019-12-09 2019-12-09 Outpatient Kinjal uHff [id number] 10:31:00 10:31:00 [employer] [facility] Family Medicine l Medicine Outpati ent Clinics 2019-11-07 2019-11-07 Outpatient Kinjal Huff [id number] 12:37:00 12:37:00 t Bastian [employer] [facility] Medicine l Medicine Outpati ent Clinics 2019-10-03 2019-10-03 [facility] [id number] [address] 10:05:00 10:05:00 t Bastian [employer] [facility] l Medicine Outpati ent Clinics 2019-09-05 2019-09-05 Outpatient Divina KARI, [facility] [id number] [place] 04:26:00 09:33:00 [facility] 2019-08-29 2019-08-29 [facility] [id number] 13:00:00 13:00:00 t Bastian [employer] [facility] l Medicine Outpati ent Clinics 2019-08-26 2019-08-26 [facility] [id number] 13:55:00 13:55:00 [employer] [facility] Medicine Outpati ent Clinics 2019-08-21 2019-08-21 [facility] [id number] 16:51:00 16:51:00 t Bastian [employer] [facility] Medicine l Medicine Outpati ent Clinics 2019-08-13 2019-08-13 [facility] [id number] 14:52:00 14:52:00 t Bastian [employer] [facility] l Medicine Outpati ent Clinics 2019-07-31 2019-07-31 [facility] [id number] 11:06:00 11:06:00 t Bastian [employer] [facility] Medicine l Medicine Outpati ent Clinics 2019-07-11 2019-07-11 [facility] [id number] [address] 09:00:00 09:00:00 t Bastian [employer] - [facility] Medicine l Medicine Outpati ent Clinics 2019-07-09 2019-07-09 [facility] [id number] [address] 14:59:00 14:59:00 t Bastian [employer] [facility] l Medicine Outpati ent Clinics 2019-07-04 2019-07-04 [facility] [id number] 10:20:00 10:20:00 t Bastian Bastian ROI² s - Drive [facility] Medicine l Medicine Outpati ent Clinics 2019-07-03 2019-07-03 [facility] [id number] 14:02:00 14:02:00 t Bastian Bastian ROI² s - Drive [facility] l Medicine Outpati ent Clinics 2019-07-01 2019-07-01 [facility] [id number] 11:14:00 11:14:00 t Bastian [employer] - Drive [facility] Medicine l Medicine Outpati ent Clinics 2019-05-30 2019-05-30 [facility] [id number] 11:55:00 11:55:00 t Bastian [employer] - Drive [facility] Medicine Outpati ent Clinics 2019-05-13 2019-05-13 [facility] [id number] 11:55:00 11:55:00 t Bastian [employer] - Drive [facility] Medicine Outpati ent Clinics 2019-05-02 2019-05-02 [facility] [id number] 16:40:00 16:40:00 t Bastian [employer] - [facility] Medicine Outpati ent Clinics 2019-04-29 2019-04-29 [facility] [id number] 10:42:00 10:42:00 t Bastian [employer] - [facility] Medicine Outpati ent Clinics 2019-04-17 2019-04-17 [facility] [id number] 16:32:00 16:32:00 t Bastian [employer] - Drive [facility] Medicine l Medicine Outpati ent Clinics 2019-03-17 2019-03-17 [facility] [id number] 14:08:00 14:08:00 t Bastian [employer] - Drive [facility] l Medicine Outpati ent Clinics 2019-03-05 2019-03-05 [facility] [id number] 14:23:00 14:23:00 t Bastian [employer] - Drive [facility] l Medicine Outpati ent Clinics 2019-02-17 2019-02-17 [facility] [id number] 15:01:00 15:01:00 t jigl [facility] ent Clinics 2019-02-05 2019-02-05 [facility] [id number] 12:12:00 12:12:00 t Bastian [employer] [facility] ent Clinics 2019-01-31 2019-01-31 [facility] [id number] 14:00:00 14:00:00 t Bastian [employer] [facility] 2019-01-23 2019-01-23 [facility] [id number] [facility] 08:39:00 08:39:00 t jigl [facility] ent Clinics 2019-01-20 2019-01-20 [facility] [id number] 08:04:00 08:04:00 t jigl [facility] ent Clinics 2018-12-19 2018-12-19 [facility] [id number] [facility] 10:00:00 10:00:00 t [facility] - [facility] [place] ent Clinics 2018-12-17 2018-12-17 [facility] [id number] 08:28:00 08:28:00 t jigl [facility] ent Clinics 2018-12-11 2018-12-11 [facility] [id number] 11:29:00 11:29:00 t [facility] - and Joint [facility] ent Clinics 2018-12-06 2018-12-06 [facility] [id number] 09:16:00 09:16:00 t [facility] - and [facility] [place] ent Clinics 2018-12-05 2018-12-05 [facility] [id number] 14:30:00 14:30:00 t [facility] - and [facility] [place] ent Clinics 2018-11-28 2018-11-28 [facility] [id number] 09:30:00 09:30:00 t Bone [facility] - and [facility] [place] ent Clinics 2018-11-07 2018-11-07 [facility] [id number] 17:10:00 17:10:[address] Luke s - Drive [facility] Medicine Outpati ent Clinics 2018-10-14 2018-10-14 [facility] [id number] 08:58:00 08:58:[address] Luke s - Drive [facility] Medicine Outpati ent Clinics 2018-10-07 2018-10-07 [facility] [id number] 16:40:00 16:40:[address] Luke s - Drive [facility] Medicine Outpati ent Clinics 2018-09-04 2018-09-04 [facility] [id number] 15:15:00 15:15:[address] Luke s - Drive [facility] Medicine Outpati ent Clinics 2018-07-23 2018-07-23 [facility] [id number] 15:57:00 15:57:[address] Luke s - Drive [facility] Medicine Outpati ent Clinics 2018-07-04 2018-07-04 [facility] [id number] 16:40:00 16:40:[address] Luke s - Drive [facility] Medicine Outpati ent Clinics 2018-07-02 2018-07-02 [facility] [id number] 13:29:00 13:29:[address] Luke s - Drive [facility] Medicine Outpati ent Clinics 2018-06-21 2018-06-21 [facility] [id number] 09:19:00 09:19:[address] Luke s - Drive [facility] Medicine Outpati ent Clinics 2018-06-18 2018-06-18 [facility] [id number] 15:45:00 15:45:[address] Luke s - Drive [facility] Medicine Medicine Outpati ent Clinics 2018-05-15 2018-05-15 [facility] [id number] 15:45:00 15:45:[address] Luke s - Drive [facility] Medicine l Medicine Outpati ent Clinics 2017-12-07 2017-12-07 [facility] [id number] 13:36:00 13:36:[address] Luke s - Drive [facility] Medicine l Medicine Outpati ent Clinics 2017-10-15 2017-10-15 [facility] [id number] [address] 13:00:00 13:00:[address] Luke s - Drive [facility] l Medicine Outpati ent Clinics 2017-10-05 2017-10-05 [facility] [id number] [facility] 08:30:00 08:30:[address] Luke s - Drive [facility] Medicine Medicine Outpati ent Clinics 2017-07-25 2017-07-25 [facility] [id number] 16:13:00 16:13:[address] Luke s - Drive [facility] Medicine Outpati ent Clinics 2017-07-16 2017-07-16 [facility] [id number] 10:12:00 10:12:[address] Luke s - Drive [facility] Medicine Medicine Outpati ent Clinics 2017-07-16 2017-07-16 [facility] [id number] 10:05:00 10:05:[address] Luke s - Drive [facility] Medicine Medicine Outpati ent Clinics 2017-07-12 2017-07-12 [facility] [id number] 14:27:00 14:27:[address] Luke s - Drive [facility] Medicine l Medicine Outpati ent Clinics 2017-07-08 2017-07-08 [facility] [id number] 16:23:00 16:23:[address] [facility] 2017-07-06 2017-07-06 [facility] [id number] 08:00:00 08:00:00 t [facility] Results Test Description Test Time Test Comments Results Result Comments Source GLUCOMETER GLUCOSE- LAB USE ONLY 2019-09-05 05:51:00 Test Item Value Reference Range Interpretation Comme nts GLUCOMETER (test code = GMG) 140 mg/dL 70-100 H Meter ID: [id number]: [id number] JAMI JARETT POCT-GLUCOSE [id number] 13:27:00 Test Item Value Reference Range Interpretation Comments POC-GLUCOSE METER 195 mg/dL 70-110 H TESTED AT [place] [address] [facility] (test code = [facility] 1538) [id number] POCT-GLUCOSE [id number] 06:19:00 Test Item Value Reference Range Interpretation Comments POC-GLUCOSE METER 145 mg/dL 70-110 H TESTED AT [place] [address] ([facility] (test code = [facility] 1538) [id number] BASIC METABOLIC [id number] 06:13:00 Test Item Value Reference Range Interpretation [...] PATIEN TS. CBC W/PLT COUNT & AUTO [id number] 05:37:00 Test Item Value Reference Range Interpretation [...] 417) IMMATURE GRANULOCYTES-RELATIVE 0 % 0-1 PERCENT ([facility]) (test code = 2801) POCT-GLUCOSE [id number] 23:38:00 Test Item Value Reference Range Interpretation Comments POC-GLUCOSE METER 176 mg/dL 70-110 H TESTED AT [place] [address] ([facility]) (test code = JACQUES Ordoñez [place] 1538) [id number] POCT-GLUCOSE [id number] 18:32:00 Test Item Value Reference Range Interpretation Comments POC-GLUCOSE METER 177 mg/dL 70-110 H TESTED AT [place] [address] ([facility]) (test code = JACQUES Ordoñez [place] 1538) [id number] MR, BRAIN, WITHOUT [id number] 17:46:00FINAL REPORT MR, BRAIN, WITHOUT CONTRAST INDICATION: [...] Stevens Verified Date/Time: 06/10/2018 17:46:10 Reading Location: [facility] Radiology Reading Room POCT-GLUCOSE [id number] 12:31:00 Test Item Value Reference Range Interpretation Comments POC-GLUCOSE METER 148 mg/dL 70-110 H TESTED AT [place] [address] ([facility]) (test code = JACQUES Ordoñez [facility] [phone] [id number] HEMOGLOBIN [id number] 10:38:00 Test Item Value Reference Range Interpretation Comments H[facility]GLOBIN A1C ([facility] (test code = 7.7 % 4.3-6.1 H 368) LIPID [id number] 10:31:00 Test Item Value Reference Range Interpretation Comments TRIGLYCERIDES ([facility]) (test code = 228 mg/dL 540) CHOLESTEROL ([facility]) (test code = 141 mg/dL 631) HDL CHOLESTEROL ([facility]) (test code 38 mg/dL = 976) LDL CHOLESTEROL CALCULATED ([facility]) 57 mg/dL (test code = 633) Triglyceride Reference Range: Low Risk <150 Borderline 150-199 High Risk 200-499 Very High Risk >=500Cholesterol Reference Range: Low Risk <200 Borderline 200-239 High Risk >240HDL Cholesterol Reference Range: Low Risk >=60 High Risk <40LDL Cholesterol Reference Range: Optimal <100 Near Optimal 100-129 Borderline 130-159 High 160-189 Very High >=190VITAMIN [id number] 08:18:00 Test Item Value Reference Range Interpretation Comments VITAMIN B12 ([facility]) (test code = 701 pg/mL 213-816 774) TSH/FREE T4 IF [id number] 07:10:00 Test Item Value Reference Range Interpretation Comments THYROID STIMULATING HORMONE 3.11 uIU/mL 0.35-4.94 ([facility]) (test code = 772) TROPONIN [id number] 06:56:00 Test Item Value Reference Range Interpretation Comments TROPONIN I ([facility]) (test code = 397) < ng/mL 0.00-0.03 [...] acidosis, acute neurological disease, and persistent tachyarrhythmia.POCT-GLUCOSE [id number] 06:46:00 Test Item Value Reference Range Interpretation Comments POC-GLUCOSE METER 125 mg/dL 70-110 H TESTED AT [facility] 6720 ([facility]) (test code = JACQUES AMEZCUA 1538) 95634 [id number] 06:38:00 Test Item Value Reference Range Interpretation Comments PARTIAL THROMBOPLASTIN TIME 30.3 seconds 22.5-36.0 ([facility]) (test code = 760) PROTHROMBIN [id number] 06:37:00 Test Item Value Reference Range Interpretation Comments PROTIME (BEAKER) (test code = 12.6 seconds 11.7-14.7 759) INR (BEAKER) (test code = 370) 0.9 <=5.9 RECOMMENDED COUMADIN/WARFARIN INR THERAPY RANGESSTANDARD DOSE: 2.0 - 3.0 Includes: PROPHYLAXIS forvenous thrombosis, systemic embolization; TREATMENT for venous thrombosis and/or pulmonary embolus.HIGH RISK: Target INR is 2.5-3.5 for patients with mechanical heart valves.
--- OUTSIDE RECORDS SUMMARY | 2019-12-17 23:01 | XMS REPORT ---
[...] Start Date End Date Status Dosage Sucralfate [facility] [id number] 1 GM Orally Dec 08, Jan 07, Active 1 ta blet on 2019 2019 an empty stomach 1 hour before meals and at bedtime. Results No Known Results Summary Purpose eClinicalWorks Submission
--- OUTSIDE RECORDS SUMMARY | 2019-12-17 23:01 | XMS REPORT ---
[...] End Date Status Dos age Date Vyvalbin [facility] [id number] 60 MG Orally Nov 06, Active 1 capsu le Once a day 2019 in the morning Results No Known Results Summary Purpose eClinicalWorks Submission
--- OUTSIDE RECORDS SUMMARY | 2019-12-17 23:01 | XMS REPORT ---
[...] A ctive Problem Migraine G43.909 Active Assessment Anxiety F41.9 Active Assessment ADD (attention deficit disorder) F98.8 Active without hyperactivity Problem Anxiety F41.9 Active Problem Hypertension I10 Active Problem Morbid obesity E66.01 Active Problem Hyperlipidemia E78.5 Active Problem Insomnia G47.00 Active Problem Cervical radiculopathy M54.12 Activ e Medications Medication Code System Code Instructions Start End Date Status Dos age Date Xanax [facility] [id number] 0.5 MG Orally Active 1 tabl et Twice a day prn anxiety attacks Vyvanse [facility] [id number] 60 MG Orally October 02, Active 1 caps ule Once a day 2019 in the morning Results No Known Results Summary Purpose eClinicalWorks Submission
[2019-12-18] MEDS ORDERED: MORPHINE 4 MG/ML SYR ONE (00:11)
[2019-12-18] MEDS ORDERED: PANTOPRAZOLE 40 MG INJ ONE (00:11)
[2019-12-18] MEDS ORDERED: ONDANSETRON 4 MG/2 ML VIAL ONE (00:11)
[2019-12-18] MEDS ORDERED: NA CHLORIDE 0.9% 1,000 ML ONE (00:11)
[2019-12-18 01:27] LABS: Absolute Lymphocytes (CBC) 2.7 K/uL (0.7-4.9); Basophils % 0.5 % (0-1.3); Hematocrit 45.1 % (39.6-49.0); Lymphocytes % 39.3 % (15.3-44.8); MPV 7.9 fL (7.6-11.3); RBC Red Blood Cell Count 5.29 M/uL (4.33-5.43)
[2019-12-18 01:52] LABS: ALT/SGPT 65 U/L (12-78); Albumin 3.5 g/dL (3.4-5.0); Alkaline Phosphatase 103 U/L (45-117); BUN Blood Urea Nitrogen 19 mg/dL (7-18); Bicarbonate 22 mmol/L (21-32); Bilirubin Direct 0.1 mg/dL (0-0.2); Bilirubin Total 0.5 mg/dL (0.2-1.0); Glucose Level 123 mg/dL (74-106); Lipase 152 U/L (73-393); Protein, Total 6.7 g/dL (6.4-8.2); Sodium Level 136 mmol/L (136-145); Troponin (Emerg Dept Use Only) < 0.02 ng/mL (0.0-0.045)
[2019-12-18 01:56] LABS: AST/SGOT 26 U/L (15-37); Magnesium 1.8 mg/dL (1.8-2.4); NT PRO-BNP < 5 pg/mL (<125); Potassium 4.2 mmol/L (3.5-5.1)
[2019-12-18 04:03] LABS: Urine Blood NEGATIVE (NEG); Urine Glucose 2+ (NEG); Urine Protein NEGATIVE (NEG); Urine pH 5.5 (5.0-7.0)
--- NOTE | 2019-12-18 04:19 | EDPHYS ---
Physician Documentation [facility] Name: Mitch Lobo Age: 39 yrs Sex: Male : 1980 Arrival Date: 12/17/2019 Time: 23:01 Bed 5 Private MD: ED Physician Sabas Enriquez HPI: 12/16 23:49 This 39 yrs old Male presents to ER via Ambulatory with complaints of jenelle Abdominal Pain. 23:49 The patient presents with abdominal pain abdominal distention in the upper abdomen, in jenelle the lower abdomen. Onset: The symptoms/episode began/occurred 15 day(s) ago. The symptoms do not radiate. Associated signs and symptoms: Pertinent positives: nausea and vomiting. The symptoms are described as constant, crampy. Modifying factors: The symptoms are alleviated by nothing, the symptoms are aggravated by nothing. Severity of pain: At its worst the pain was mild moderate in the emergency department the pain is unchanged. The patient has not experienced similar symptoms in the past. Historical: - Allergies: 23:12 No Known Allergies; sg - PMHx: 23:12 Diabetes - NIDDM; Gastric Reflux; High Cholesterol; Hypertension; Pancreatitis; sg - PSHx: 23:12 Appendectomy; Cholecystectomy; Pekin's tendon; sg - Immunization history:: Adult Immunizations up to date. - Social history:: Smoking status: Patient denies any tobacco usage or history of. - Family history:: not pertinent. ROS: 23:49 Constitutional: Negative for fever, chills, and weight loss, Eyes: Negative for injury, jenelle pain, redness, and discharge, ENT: Negative for injury, pain, and discharge, Neck: Negative for injury, pain, and swelling, Cardiovascular: Negative for chest pain, palpitations, and edema, Respiratory: Negative for shortness of breath, cough, wheezing, and pleuritic chest pain, Back: Negative for injury and pain, : Negative for injury, bleeding, discharge, and swelling, MS/Extremity: Negative for injury and deformity, Skin: Negative for injury, rash, and discoloration, Neuro: Negative for headache, weakness, numbness, tingling, and seizure, Psych: Negative for depression, anxiety, suicide ideation, homicidal ideation, and hallucinations, Allergy/Immunology: Negative for hives, rash, and allergies, Endocrine: Negative for neck swelling, polydipsia, polyuria, polyphagia, and marked weight changes, Hematologic/Lymphatic: Negative for swollen nodes, abnormal bleeding, and unusual bruising. 23:49 Abdomen/GI: Positive for abdominal pain, nausea and vomiting, of the right upper quadrant, left upper quadrant, right lower quadrant and left lower quadrant. Exam: 23:49 Constitutional: This is a well developed, well nourished patient who is awake, alert, jenelle and in no acute distress. Head/Face: Normocephalic, atraumatic. Eyes: Pupils equal round and reactive to light, extra-ocular motions intact. Lids and lashes normal. Conjunctiva and sclera are non-icteric and not injected. Cornea within normal limits. Periorbital areas with no swelling, redness, or edema. ENT: Nares patent. No nasal discharge, no septal abnormalities noted. Tympanic membranes are normal and external auditory canals are clear. Oropharynx with no redness, swelling, or masses, exudates, or evidence of obstruction, uvula midline. Mucous membranes moist. Neck: Trachea midline, no thyromegaly or masses palpated, and no cervical lymphadenopathy. Supple, full range of motion without nuchal rigidity, or vertebral point tenderness. No Meningismus. Chest/axilla: Normal chest wall appearance and motion. Nontender with no deformity. No lesions are appreciated. Cardiovascular: Regular rate and rhythm with a normal S1 and S2. No gallops, murmurs, or rubs. Normal PMI, no JVD. No pulse deficits. Respiratory: Lungs have equal breath sounds bilaterally, clear to auscultation and percussion. No rales, rhonchi or wheezes noted. No increased work of breathing, no retractions or nasal flaring. Back: No spinal tenderness. No costovertebral tenderness. Full range of motion. Male : Normal genitalia with no discharge or lesions. Skin: Warm, dry with normal turgor. Normal color with no rashes, no lesions, and no evidence of cellulitis. MS/ Extremity: Pulses equal, no cyanosis. Neurovascular intact. Full, normal range of motion. Neuro: Awake and alert, GCS 15, oriented to person, place, time, and situation. Cranial nerves II-XII grossly intact. Motor strength 5/5 in all extremities. Sensory grossly intact. Cerebellar exam normal. Normal gait. Psych: Awake, alert, with orientation to person, place and time. Behavior, mood, and affect are within normal limits. 23:49 Abdomen/GI: Inspection: abdomen appears normal, Bowel sounds: normal, active, Palpation: mild abdominal tenderness, in the umbilical area, right upper quadrant and left upper quadrant, Liver: no appreciated palpable abnormalities, Hernia: not appreciated. 12/17 01:05 ECG was reviewed by the Attending Physician. [facility] Vital Signs: 12/16 23:10 BP 136 / 82; Pulse 92; Resp 16; Temp 98.4; Pulse Ox 100% on R/A; Weight 117.48 kg (R); sg Height 5 ft. 7 in. (170.18 cm); Pain 01/02; 12/17 01:38 BP 106 / 82; Pulse 90; Resp 18; Pulse Ox 100% on R/A; mg2 02:45 BP 102 / 62; Pulse 70; Resp 16; Pulse Ox 99% on R/A; jb4 03:30 BP 94 / 50; Pulse 60; Resp 16; Pulse Ox 100% on R/A; jb4 04:20 BP 102 / 72; Pulse 70; Resp 16; Pulse Ox 98% on R/A; jb4 12/16 23:10 Body Mass Index 40.56 (117.48 kg, 170.18 cm) sg MDM: 12/16 23:39 Patient medically screened. [facility] 23:51 Differential diagnosis: diverticulitis, gastritis, gastroesophageal reflux disease, jenelle Irritable bowel syndrome, Mesenteric ischemia or infarction, pancreatitis, Peptic Ulcer Disease, Perf. Duodenal Ulcer, Perf. Gastric Ulcer, Pyelonephritis, urinary tract infection. Data reviewed: vital signs, nurses notes, lab test result(s), EKG, radiologic studies, CT scan, MRI, plain films. Data interpreted: residential monitor: rate is 92 beats/min, rhythm is regular. Test interpretation: by ED physician or midlevel provider: ECG, plain radiologic studies. Counseling: I had a detailed discussion with the patient and/or guardian regarding: the historical points, exam findings, and any diagnostic results supporting the discharge/admit diagnosis, lab results, radiology results. 12/17 04:40 ED course: all results explained, will follow up dr lieberman. [facility] 12/16 23:49 Order name: Basic Metabolic Panel; Complete Time: 04:16 [facility] 12/16 23:49 Order name: CBC with Diff; Complete Time: 01:45 [facility] 12/16 23:49 Order name: LFT's; Complete Time: 04:16 [facility] 12/16 23:49 Order name: Magnesium; Complete Time: 04:16 [facility] 12/16 23:49 Order name: NT PRO-BNP; Complete Time: 04:16 [facility] 12/16 23:49 Order name: Troponin (emerg Dept Use Only); Complete Time: 04:16 [facility] 12/16 23:49 Order name: XRAY Chest (1 view) [facility] 12/16 23:49 Order name: Lipase; Complete Time: 04:16 [facility] 12/16 23:49 Order name: CT Abd/Pelvis - PO and IV Contrast [facility] 12/16 23:53 Order name: Lactate; Complete Time: 01:45 [facility] 12/17 03:00 Order name: Urine Dipstick--Ancillary (enter results); Complete Time: 04:16 ds4 12/16 23:49 Order name: EKG; Complete Time: 23:49 [facility] 12/16 23:49 Order name: Cardiac monitoring; Complete Time: 00:58 [facility] 12/16 23:49 Order name: EKG - Nurse/Tech; Complete Time: 00:58 [facility] 12/16 23:49 Order name: IV Saline Lock; Complete Time: 00:58 [facility] 12/16 23:49 Order name: Labs collected and sent; Complete Time: 00:58 [facility] 12/16 23:49 Order name: O2 Per Protocol; Complete Time: 00:58 [facility] 12/16 23:49 Order name: O2 Sat Monitoring; Complete Time: 00:59 [facility] 12/16 23:49 Order name: Urine Dipstick-Ancillary (obtain specimen); Complete Time: 02:14 [facility] EC:05 Rate is 69 beats/min. Rhythm is regular. QRS [place] is Normal. TN interval is normal. QRS jenelle interval is normal. QT interval is normal. No Q waves. T waves are Normal. No ST changes noted. Clinical impression: Normal ECG and No evidence of ischemia. Interpreted by me. Reviewed by me. Administered Medications: Drug: morphine 4 mg Route: IVP; Site: right forearm; mg2 02:00 Follow up: Response: No adverse reaction; Pain is decreased; RASS: Alert and Calm (0) jb4 Drug: Zofran (Ondansetron) 4 mg Route: IVP; Site: right forearm; mg2 01:57 Follow up: Response: No adverse reaction; Nausea is decreased [facility] 01:28 Drug: NS 0.9% 1000 ml Route: IV; Rate: 1 bolus; Site: right forearm; mg2 02:28 Follow up: Response: No adverse reaction; IV Status: Completed infusion; IV Intake: jb4 1000ml 01:28 Drug: ProTONIX 40 mg Route: IVP; Site: right forearm; mg2 01:58 Follow up: Response: No adverse reaction jb4 Disposition: 12/18/19 04:17 Discharged to Home. Impression: Abdominal tenderness, Gastro-esophageal reflux disease. - Condition is Stable. - Discharge Instructions: Abdominal Pain, Adult, Nausea and Vomiting, Adult, Abdominal Pain, Adult, [id number]. - Prescriptions for Dexilant 60 mg Oral capsule,biphase delayed releas - take 1 capsule by ORAL route once daily; 20 capsule. Bentyl 20 mg Oral Tablet - take 1 tablet by ORAL route every 6 hours As needed; 20 tablet. Zofran 4 mg Oral Tablet - take 1 tablet by ORAL route every 12 hours As needed; 20 tablet. - Medication Reconciliation Form, Thank You Letter, Antibiotic Education, Prescription Opioid Use form. - Follow up: Private Physician; When: 2 - 3 days; Reason: Recheck today's complaints, Continuance of care, Re-evaluation by your physician. Follow up: Malcom Lieberman; When: 2 - 3 days; Reason: Recheck today's complaints, Continuance of care, Re-evaluation by your physician. - Problem is new. - Symptoms have improved. Signatures: Dispatcher [employer] EDMS Joseph Ovalle RN RN sg Anderson, Corey, MD MD cha Bryson, James RN RN jb4 Travon Timmons RN RN mg2 Corrections: (The following items were deleted from the chart) 04:42 04:17 12/18/2019 04:17 Discharged to Home. Impression: Abdominal tenderness; jb4 Gastro-esophageal reflux disease. Condition is Stable. Discharge Instructions: Abdominal Pain, Adult, Nausea and Vomiting, Adult, Abdominal Pain, Adult, [id number]. Prescriptions for Dexilant 60 mg Oral capsule,biphase delayed releas - take 1 capsule by ORAL route once daily; 20 capsule, Bentyl 20 mg Oral Tablet - take 1 tablet by ORAL route every 6 hours As needed; 20 tablet, Zofran 4 mg Oral Tablet - take 1 tablet by ORAL route every 12 hours As needed; 20 tablet. and Forms are Medication Reconciliation Form, Thank You Letter, Antibiotic Education, Prescription Opioid Use. Follow up: Private Physician; When: 2 - 3 days; Reason: Recheck today's complaints, Continuance of care, Re-evaluation by your physician. Follow up: Malcom Lieberman; When: 2 - 3 days; Reason: Recheck today's complaints, Continuance of care, Re-evaluation by your physician. Problem is new. Symptoms have improved. jenelle
--- NOTE | 2019-12-18 04:19 | ER ---
Nurse's Notes [facility] Name: Mitch Lobo Age: 39 yrs Sex: Male : 1980 Arrival Date: 12/17/2019 Time: 23:01 Bed 5 Private MD: Diagnosis: Abdominal tenderness;Gastro-esophageal reflux disease Presentation: 12/16 23:10 Chief complaint: Spouse and/or significant other states: We were sent here by Dr.Patel ac for evaluation due to having increased abdominal pain today, pt reports nausea as well. Coronavirus screen: Client denies travel out of the [place] in the last 14 days. At this time, the client does not indicate any symptoms associated with coronavirus-19. Ebola Screen: Patient negative for fever greater than or equal to 101.5 degrees Fahrenheit, and additional compatible Ebola Virus Disease symptoms Patient denies exposure to infectious person. Patient denies travel to an Ebola-affected area in the 21 days before illness onset. No symptoms or risks identified at this time. Initial Sepsis Screen: Does the patient meet any 2 criteria? HR > 90 bpm. Does the patient have a suspected source of infection? Yes: Acute abdominal pain. Risk Assessment: Do you want to hurt yourself or someone else? Patient reports no desire to harm self or others. Onset of symptoms was December 17, 2019. Care prior to arrival: None. 23:10 Method Of Arrival: Ambulatory 23:10 Acuity: JOSE M 3 sg Historical: - Allergies: 23:12 No Known Allergies; sg - PMHx: 23:12 Diabetes - NIDDM; Gastric Reflux; High Cholesterol; Hypertension; Pancreatitis; sg - PSHx: 23:12 Appendectomy; Cholecystectomy; Monse's tendon; sg - Immunization history:: Adult Immunizations up to date. - Social history:: Smoking status: Patient denies any tobacco usage or history of. - Family history:: not pertinent. Screenin/24 01:36 Abuse screen: Denies threats or abuse. Denies injuries from another. Nutritional mg2 screening: No deficits noted. On. Tuberculosis screening: No symptoms or risk factors identified. Fall Risk IV access (20 points). Assessment: 12/16 23:50 General: Appears in no apparent distress. uncomfortable, Behavior is calm, cooperative. jb4 Pain: Complains of pain in abdomen Pain does not radiate. Pain currently is 9 out of 10 on a pain scale. Quality of pain is described as crampy. Neuro: Level of Consciousness is awake, alert, obeys commands, Oriented to person, place, time, situation. Cardiovascular: Patient's skin is warm and dry. Respiratory: Airway is patent Respiratory effort is even, unlabored, Respiratory pattern is regular, symmetrical. GI: Abdomen is non-distended, obese, Bowel sounds present X 4 quads. Abd is soft and non tender X 4 quads. Reports upper abdominal pain. : No signs and/or symptoms were reported regarding the genitourinary system. EENT: No signs and/or symptoms were reported regarding the EENT system. Derm: Skin is intact, Skin is pink, warm \T\ dry. Musculoskeletal: Circulation, motion, and sensation intact. 12/17 01:00 Reassessment: Patient appears in no apparent distress at this time. Patient and/or jb4 family updated on plan of care and expected duration. Pain level reassessed. Patient is alert, oriented x 3, equal unlabored respirations, skin warm/dry/pink. 01:37 General: Appears in no apparent distress. comfortable, Behavior is calm, cooperative. mg2 Pain: Complains of pain in abdomen. Neuro: Level of Consciousness is awake, alert, obeys commands, Oriented to person, place, time, situation. Cardiovascular: Capillary refill < 3 seconds Patient's skin is warm and dry. Respiratory: Airway is patent Respiratory effort is even, unlabored, Respiratory pattern is regular, symmetrical. GI: Bowel sounds present X 4 quads. GI: Reports lower abdominal pain, upper abdominal pain. EENT: No signs and/or symptoms were reported regarding the EENT system. Derm: Skin is intact, is healthy with good turgor, Skin is pink, warm \T\ dry. normal. Musculoskeletal: Circulation, motion, and sensation intact. Capillary refill < 3 seconds. 02:30 Reassessment: Patient appears in no apparent distress at this time. Patient and/or jb4 family updated on plan of care and expected duration. Pain level reassessed. Patient is alert, oriented x 3, equal unlabored respirations, skin warm/dry/pink. 03:32 Reassessment: Patient and/or family updated on plan of care and expected duration. Pain jb4 level reassessed. Patient is alert, oriented x 3, equal unlabored respirations, skin warm/dry/pink. PT is resting in bed with eyes closed, respirations even and unlabored. No s/s of pain or distress noted. 04:39 Reassessment: Patient appears in no apparent distress at this time. Patient and/or jb4 family updated on plan of care and expected duration. Pain level reassessed. Patient is alert, oriented x 3, equal unlabored respirations, skin warm/dry/pink. Patient states feeling better. Vital Signs: 12/16 23:10 BP 136 / 82; Pulse 92; Resp 16; Temp 98.4; Pulse Ox 100% on R/A; Weight 117.48 kg (R); sg Height 5 ft. 7 in. (170.18 cm); Pain 01/02; 12/17 01:38 BP 106 / 82; Pulse 90; Resp 18; Pulse Ox 100% on R/A; mg2 02:45 BP 102 / 62; Pulse 70; Resp 16; Pulse Ox 99% on R/A; jb4 03:30 BP 94 / 50; Pulse 60; Resp 16; Pulse Ox 100% on R/A; jb4 04:20 BP 102 / 72; Pulse 70; Resp 16; Pulse Ox 98% on R/A; jb4 12/16 23:10 Body Mass Index 40.56 (117.48 kg, 170.18 cm) sg ED Course: 12/16 23:01 Patient arrived in ED. bp1 23:10 Arm band placed on. sg 23:12 Triage completed. sg 23:32 Chadwick Salas, KAYLA is Primary Nurse. jb4 23:39 Sabas Enriquez MD is Attending Physician. jenelle 12/17 00:43 XRAY Chest (1 view) In Process Unspecified. EDMS 01:00 Inserted saline lock: 22 gauge in right forearm, using aseptic technique. Blood mg2 collected. by LEI Almanza tech. 01:36 Patient has correct armband on for positive identification. monitoring engineer on. Pulse mg2 ox on. NIBP on. Warm blanket given. 01:36 No provider procedures requiring assistance completed. mg2 02:56 CT Abd/Pelvis - PO and IV Contrast In Process Unspecified. EDMS 04:17 Malcom Lieberman MD is Referral Physician. jenelle 04:20 IV discontinued, intact, bleeding controlled, No redness/swelling at site. Pressure jb4 dressing applied. Administered Medications: 01:27 Drug: morphine 4 mg Route: IVP; Site: right forearm; mg2 02:00 Follow up: Response: No adverse reaction; Pain is decreased; RASS: Alert and Calm (0) jb4 01:27 Drug: Zofran (Ondansetron) 4 mg Route: IVP; Site: right forearm; mg2 01:57 Follow up: Response: No adverse reaction; Nausea is decreased jb4 01:28 Drug: NS 0.9% 1000 ml Route: IV; Rate: 1 bolus; Site: right forearm; mg2 02:28 Follow up: Response: No adverse reaction; IV Status: Completed infusion; IV Intake: jb4 1000ml 01:28 Drug: ProTONIX 40 mg Route: IVP; Site: right forearm; mg2 01:58 Follow up: Response: No adverse reaction jb4 Intake: 02:28 IV: 1000ml; Total: 1000ml. jb4 Outcome: 04:17 Discharge ordered by MD. almanzar 04:40 Discharged to home ambulatory, with family. jb4 04:40 Condition: stable 04:40 Discharge instructions given to patient, Instructed on discharge instructions, follow up and referral plans. medication usage, Demonstrated understanding of instructions, follow-up care, medications, Prescriptions given X 3. 04:42 Patient left the ED. jb4 Signatures: Dispatcher [employer] Joseph Calzada, RN Sabas Sen MD MD cha Bryson, James, RN RN jb4 Travon Timmons RN RN [facility] Corrections: (The following items were deleted from the chart) 01:37 01:00 Inserted saline lock: 22 gauge by LEI Almanza mg2 mg2
[2019-12-18 04:54] VITALS: TEMP 98.4
[2019-12-18 05:06] VITALS: BP 102/72; O2SAT 98
--- NOTE | 2019-12-18 08:36 | RAD REPORT ---
EXAM DESCRIPTION: RAD - Chest Single View - 12/18/2019 12:43 am CLINICAL HISTORY: ABDOMINAL DISTENTION COMPARISON: May 2018 TECHNIQUE: AP portable chest image was obtained 12/18/2019 12:43 am . FINDINGS: Lungs are clear. Portable technique, body habitus and slightly shallow inspiration accentu ate chest findings. Heart and vasculature are normal. No measurable pleural effusion and no pneumotho rax. No acute bony abnormality seen. No acute aortic findings suspected. IMPRESSION: No acute cardiopulmonary process. No significant change from comparison.
--- NOTE | 2019-12-18 08:43 | EKG ---
Test Date: 2019-12-18 Test Time: 00:53:50 Boat Cleaning Supervisor: KARYN MEASUREMENT RESULTS: Intervals: Rate: 69 NH: 170 QRSD: 92 QT: 384 QTc: 411 [place]: P: 55 NH: 170 QRS: 61 T: 30 INTERPRETIVE STATEMENTS: Normal sinus rhythm Normal ECG Compared to ECG 08/22/2019 09:23:49 No significant changes Electronically Signed On 12-18-19 08:43:02 CDT by Benjy Cole
--- NOTE | 2019-12-18 10:20 | RAD REPORT ---
EXAM DESCRIPTION: CT - Abdomen Pelvis W Contrast - 12/18/2019 6:34 am CLINICAL HISTORY: ABD PAIN TECHNIQUE: Contiguous axial images obtained through the abdomen and pelvis following the uneventful administration of IV contrast. Coronal and sagittal reformatted images were provided. This exam was performed according to our departmental dose-optimization program, which includes autom ated exposure control, adjustment of the mA and/or kV according to patient size and/or use of iterati ve reconstruction technique. COMPARISON: 12/09/2019 FINDINGS: Lung bases: Clear Liver: Unremarkable Gallbladder and biliary system: Prior cholecystectomy. Pancreas: Unremarkable Spleen: Unremarkable Adrenals: Unremarkable Kidneys: Normal renal cortical enhancement. No calculi. No hydronephrosis. Bowel: No obstruction. No appreciable mucosal thickening. Appendix: There has been an appendectomy. Urinary bladder: Unremarkable Reproductive: Unremarkable as visualized Lymph nodes: No pathologically enlarged lymph nodes. Peritoneum: No focal fluid collection. No free air. Vessels: No abdominal aortic aneurysm. Abdominal wall: Unremarkable Bones: Multilevel spondylosis. No acute fracture. IMPRESSION: 1. No acute abnormality identified within the abdomen and pelvis. 2. Other findings as above. Electronically signed by: Britney Lucero MD 12/18/2019 3:16 AM CDT Due to temporary technical issues with the PACS/Fluency reporting system, reports are being signed by the in house radiologist without review as a courtesy to ensure prompt reporting. The interpreting r adiologist is fully responsible for the content of the report.
== END 2019-12-18 04:42 | disposition home or self-care (01) ==
LOC: ER 22:58
DX: K21.9 Gastro-esophageal reflux disease without esophagitis (principal); I10 Essential (primary) hypertension
CPT/HCPCS: 96361; 93005; 85025; 80048; 36415; 83735; 80076; 83605; 81003; 84484; 83690; 83880; 74177; 71045; 96375; 96374; 99284; Q9967; C9113; J7030; J2405

== ENCOUNTER 2019-12-23 11:21 | Day surgery (SDC) | payer OTHER ==
--- OUTSIDE RECORDS SUMMARY | 2019-12-23 11:29 | XMS REPORT | Clinical Summary ---
:1980 Author Organization [facility] Address [address] [place] [address] Care Team Providers Name Role Phone EsparzaKristyn [...] Description 12/16/2019 Emergency Emergency Medicine Kathryn Bethea [facility] reyna Boone MD pain (Primary D x) 12/15/2019 Travel after 12/22/2018 Family History Medical History Relation Name Comments [...] PANEL 06/10/2021 06/10/2018 Results Not on fileafter 12/22/2018 Insurance Payer Benefit Plan / Group Subscriber ID Type Phone A ddress [employer] - [employer]GD CARE [employer] HMO/POS/OPEN ACCESS xxxxxxxxxxx HMO/POS Advance Directives For more information, please contact:[place] [phone] [facility] [place], [place] [phone] Code Status Date Activated Date Inactivated Comments Full Code 06/10/2018 5:59 AM 06/11/2018 7:04 PM This code status was determined by: Patient
--- OUTSIDE RECORDS SUMMARY | 2019-12-23 11:30 | XMS REPORT ---
[...] End Date Status Dos age Date Vyvalbin [facility] 11783763354 60 MG Orally Nov 06, Active 1 capsu le Once a day 2019 in the morning Results No Known Results Summary Purpose eClinicalWorks Submission
--- OUTSIDE RECORDS SUMMARY | 2019-12-23 11:30 | XMS REPORT ---
[...] Status Dosage System Date Date Dexilant [facility] 08772441673 60 MG Orally Active 1 caps ule Once a day Xanax [facility] 06252671209 0.5 MG Orally Active 1 tabl et Twice a day prn anxiety attacks Imitrex ND 73211291933 100 MG Orally Active 1 tabl et ocne a day as as needed needed, may repeat 1 dose in 2 hours max of 200mg in [address] [facility] 30152035985 108 (90 Base) Active 2 pu ffs as Sulfate MCG/ACT needed Inhalation every [address] [facility] 25506294656 10 MG Orally Active 1 table t Once a day at bedtime as needed Duloxetine HCl [facility] 50219935309 60 MG Orally Active 1 capsule Once a day Metformin HCl [facility] 44508978615 1000 MG Orally Active 1 tablet Twice a day with meals Phenergan [facility] 89455482773 25 MG Orally Dec 08, Nov Active 1 ta blet every 12 hrs 2019, as needed [address] [facility] 87175094167 4 MG Orally Active 1 ta blet twice a day with meals Aripiprazole [facility] 27274043238 10 MG Orally Active 1 tablet Once a day Vyvanse [facility] 06840066579 60 MG Orally Nov 06, Active 1 capsu le Once a day 2019 in the morning Duloxetine HCl [facility] 49796566789 30 MG Orally Active 1 capsule Once a day Lipitor [facility] 06063208235 40 MG Orally Active 1 table t Once a day Duloxetine HCl [facility] 59254964731 30 MG Orally Active 1 capsule Once a day with 60mg for total of 90 mg daily Cozaar [facility] 04136429501 100 MG Orally Active 1 tabl et Once a day Aspirin Adult [facility] 50538554114 81 MG Orally Active 1 tablet Low Dose Once a day Invokana [facility] 88785974559 100 MG Orally Active 1 tab let Once a day before the first meal of the day Results Name Result Date Reference Range Unit Abnormali ty Flag Amylase Level ----Amylase 46 [id number] 25-115 U/L Lipase ----Lipase 182 [id number] 73-393 U/L Summary Purpose eClinicalWorks Submission
--- OUTSIDE RECORDS SUMMARY | 2019-12-23 11:30 | XMS REPORT ---
[...] End Status Dosage System Date Date Imitrex [facility] 84783667577 100 MG Orally Active 1 tabl et as ocne a day as needed needed, may repeat 1 dose in 2 hours max of 200mg in 24 hours Hyoscyamine [facility] 32796201895 0.125 MG Orally Dec 09, Nov Active 1 tablet on Sulfate Three times a 2019, the tongue day 2019 and allow to dissolve as needed Cozaar ND 35285222352 100 MG Orally Active 1 tabl et Once a day Ambien ND 52456097205 10 MG Orally Active 1 table t at Once a day bedtime as needed Lipitor ND 62238822487 40 MG Orally Active 1 table t Once a day Aripiprazole ND 86749390433 10 MG Orally Active 1 tablet Once a day Duloxetine HCl ND 05504251543 30 MG Orally Active 1 capsule Once a day Tylenol # 3 NDC 0 300/30mg PO Dec 09Nov Active one tab every 8 hours 2019, prn pain 2019 Metformin HCl [facility] 03822020192 1000 MG Orally Active 1 tablet Twice a day with meals Phenergan [facility] 72869209159 25 MG Orally Dec 08Nov Active 1 ta blet as every 12 hrs 2019, needed 2019 Dexilant [facility] 41106991040 60 MG Orally Active 1 caps ule Once a day Invokana [facility] 76964171677 100 MG Orally Active 1 tab let Once a day before the first meal of the day Aspirin Adult [facility] 23503341960 81 MG Orally Active 1 tablet Low Dose Once a day Albuterol [facility] 77859509631 108 (90 Base) Active 2 pu ffs as Sulfate MCG/ACT needed Inhalation every 6 hrs Sucralfate [facility] 18900096682 1 GM Orally Dec 08Jan 07, Active 1 ta blet on 2019 2019 an empty stomach 1 hour before meals and at bedtime. Glimepiride [facility] 57103833819 4 MG Orally Active 1 ta blet twice a day with meals Vyvanse [facility] 65393707654 60 MG Orally Nov 06, Active 1 capsu le Once a day 2019 in the morning Duloxetine HCl [facility] 70873904794 30 MG Orally Active 1 capsule Once a day with 60mg for total of 90 mg daily Duloxetine HCl [facility] 31025204853 60 MG Orally Active 1 capsule Once a day Xanax [facility] 15438531384 0.5 MG Orally Active 1 tabl et Twice a day prn anxiety attacks Results No Known Results Summary Purpose eClinicalWorks Submission
--- OUTSIDE RECORDS SUMMARY | 2019-12-23 11:30 | XMS REPORT ---
[...] End Date Status Dos age Date Xanax [facility] 46257086187 0.5 MG Orally Active 1 tabl et Twice a day prn anxiety attacks Vyvanse [facility] 87134402973 60 MG Orally October 02, Active 1 caps ule Once a day 2019 in the morning Results No Known Results Summary Purpose eClinicalWorks Submission
--- OUTSIDE RECORDS SUMMARY | 2019-12-23 11:30 | XMS REPORT ---
[...] Start Date End Date Status Dosage Sucralfate [facility] 89396568752 1 GM Orally Dec 08, Jan 07, Active 1 ta blet on 2019 2019 an empty stomach 1 hour before meals and at bedtime. Results No Known Results Summary Purpose eClinicalWorks Submission
--- OUTSIDE RECORDS SUMMARY | 2019-12-23 11:30 | XMS REPORT | Continuity of Care Document ---
:1980 Author Organization [facility] t Address [address] [place] [address] Care Team Providers Name Role Phone Esparza Kristyn TURNER Primary Care Physician [place] [facility] Attending Clinician DR KARI Attending Clinician Unavailable CHRISTA EDWARDS Attending Clinician Unavailable DR KARI Admitting Clinician Unavailable CHRISTA EDWARDS Admitting Clinician Unavailable Payers Payer Name Policy Type Policy Number Effective Date Expiration Date Emerson romero CIG[employer] - MGD xxxxxxxxxxx [facility] [...] Disease Active [facility] emia 06-10 [facility] 00 Center Essential Essential Disease Active [facility] hypertensi hypertensi 3-18 Candice kes - on on 00:00: Medical Center Allergies, Adverse Reactions, Alerts This patient has no known allergies or adverse reactions. Family History Family Member Diagnosis Comments Start Date Stop Date Source Natural father No Known Problem [facility] Natural mother No Known Problem [facility] Social History Social Habit Start Date Stop Date Quantity Comments Source History SDOH Alcohol [facility] Std Drinks [facility] History SDOH Alcohol [facility] Binge [facility] Sex Assigned At [facility] History SDOH Alcohol 2018-06-10 2018-06-10 2 [facility] - Frequency 00:00:00 00:00:00 Medical Center Smoking Status Start Date Stop Date Source Never smoker [facility] edical [place] Medications Ordered Filled Start Stop Current Ordering [...] [address] (AMARYL) 4 - by mouth [facility] - MG tablet 21:44: [...] tablet hours as needed for Nausea. DULoxetine Yes 30mg QD Take [address] (CYMBALTA) 9-21 by mouth [facility] - 30 MG 21:44: daily. Medical capsule 51 Center Hyoscyamine Hyoscyamine 2020- Yes Na Esparza [address] [facility] [address] Sulfate Sulfate 9-16 - on the [facility] - 00:00: 00:00 tongue and Memori a 00 :00 allow to l dissolve Outpati as needed ent Clinics Tylenol # 3 Tylenol # 3 2019- 2020- Yes Na Esparza one tab [facility] 9-16 - [facility] - 00:00: 00:00 Memoria 00 :00 l Outpati ent Clinics Sucralfate Sucralfate 2019-0 2020- Yes Na Esparza [address] [facility] 9-15 10-15 on an [facility] - 00:00: 00:00 empty Memoria 00 :00 stomach 1 l hour Outpati before ent meals and Clinics at bedtime. Phenergan Phenergan 2020- Yes Na Esparza [address] 9-15 - as needed [facility] - 00:00: 00:00 Memoria 00 :00 l Outpati ent Clinics Vyvanse Vyvanse 0 Yes Na Esparza [address] [...] needed Center for Headaches or Migraine. cetirizine 0 Yes 10mg QD Take [address] (ZYRTEC) 10 3-18 by mouth Luke s - MG tablet 06:53: every Medical 30 evening. [place] lisdexamfet 0 Yes 60mg QD Take [address] amine 3-18 by mouth [facility] - (VYVANSE) 06:53: every Medical 60 MG 29 morning. [place] capsule losartan Yes 100mg QD Take [address] (COZAAR) 3-18 mg by [facility] - 100 MG 06:53: mouth Medical tablet 29 daily. [place] escitalopra 0 Yes 20mg QD Take [address] m oxalate 3-18 by mouth [facility] - (LEXAPRO) 06:53: daily. Medica l 20 MG 29 Center tablet multivit-mi 0 Yes QD Take by [facility] nerals/FA/l 3-18 mouth [facility] - ycopene 06:53: daily. Medical (ONE-A-DAY 29 Center MEN'S ORAL) glipiZIDE 2018-0 Yes 5mg Take [address] [facility] [...] [address] [facility] ent Clinics Imitrex Imitrex Yes Na Esparza [address] as needed [facility] - [facility] ent [facility] Cozaar Cozaar Yes Na Esparza [address] [facility] Ambien Ambien Yes Na Esparza [address] at bedtime [facility] - as needed Memoria [facility] Lipitor Lipitor Yes Na Esparza [address] [facility] Aripiprazol Aripiprazol Yes Na Esparza [address] e e [facility] - [facility] Duloxetine Duloxetine Yes Na Esparza [address] HCl HCl [facility] - [facility] Metformin Metformin Yes Na Esparza [address] HCl HCl with meals [facility] - [facility] Dexilant Dexilant Yes Na Esparza [address] [facility] Invokana Invokana Yes Na Esparza [address] [facility] before the [facility] - first meal Memoria of the day l [facility] ent [facility] Aspirin Aspirin Yes Na Esparza [address] Adult Low Adult Low [facility] - Dose Dose Memoria l [facility] Albuterol Albuterol Yes Na Esparza [address] [address] Sulfate Sulfate needed [facility] - Mem[facility] Glimepiride Glimepiride Yes Na Esparza [address] with meals [facility] - [facility] Duloxetine Duloxetine Yes Na Esparza [address] HCl HCl [facility] - [facility] Duloxetine Duloxetine Yes Na Esparza [address] HCl HCl [facility] - [facility] Immunizations Ordered Filled Immunization Date Status Comments [facility] e Immunization Name Name Afluria single dose Afluria single dose 2019-01-31 Completed [facility] - 00:00:00 [facility] Outpatient Clinics Vital Signs Vital Name Observation Time Observation Value Comments Source Systolic blood 2019-12-15 21:38:00 147 mm[Hg] [facility] Diastolic blood 2019-12-15 21:38:00 93 mm[Hg] [facility] Heart rate 2019-12-15 21:38:00 107 /min [facility] Body temperature 2019-12-15 21:38:00 36.33 Karen [facility] Respiratory rate 2019-12-15 21:38:00 20 /min [facility] Body height 2019-12-15 21:38:00 177.8 cm [facility] Body weight Measured 2019-12-15 21:38:00 122.018 kg [facility] BMI 2019-12-15 21:38:00 38.60 kg/m2 [facility] Oxygen saturation in 2019-12-15 21:38:00 98 /min [facility] - Arterial blood by Medical Ce nter Pulse oximetry Procedures This patient has no known procedures. Plan of Care Planned Activity Planned Date Details Comments Source Future Scheduled 2021-06-10 Lipid panel [facility] Luke s - Test 00:00:00 (procedure) [code = [facility] [id number]] Future Scheduled 2019-11-25 INFLUENZA VACCINE (#1) [facility] - Test 00:00:00 [code = INFLUENZA Medical Ce nter VACCINE (#1)] Future Scheduled 2018-12-[address] Candice kes - Test 00:00:00 measurement [facility] (procedure) [code = [id number]] Future Scheduled 1989-09-[address] DIABETIC EYE EXAM [facility] - Test 00:00:00 [code = DIABETIC EYE Medical Center EXAM] Future Scheduled 1989-09-[address] [facility] - Test 00:00:00 examination Medical Center (regime/therapy) [code = [id number]] Future Scheduled 1989-09-26 Urine screening for [facility] - Test 00:00:00 protein (procedure) [facility] [code = [id number]] Future Scheduled 1985-09-[address] [facility] - Test 00:00:00 2-64 YEARS AT RISK (1 Medica l Center of 1 - PPSV23) [code = PNEUMOCOCCAL VACCINE 2-64 YEARS AT RISK (1 of 1 - PPSV23)] Encounters Start End Encounter Admission Attending Care Care Encounter Source Date/Time Date/Time Type Type Clinicians Facility Department ID 2019-12-16 2019-12-16 Outpatient [facility] [id number] [facility]00 [facility] Outpati ent Clinics 2019-12-12 2019-12-12 Outpatient [facility] [id number] [facility] 2019-12-10 2019-12-10 [facility] [id number] 11:37:00 11:37:00 [place] [employer] - [employer] [facility] l Medicine Outpati ent Clinics 2019-12-09 2019-12-09 [facility] [id number] 13:18:00 13:18:00 [place] [employer] s - Drive [facility] l Medicine Outpati ent Clinics 2019-12-09 2019-12-09 [facility] [id number] 10:31:00 10:31:00 [place] [employer] - [employer] [facility] l Medicine Outpati ent Clinics 2019-11-07 2019-11-07 [facility] [id number] 12:37:00 12:37:00 [place] [employer] - [employer] [facility] l Medicine Outpati ent Clinics 2019-10-03 2019-10-03 [facility] [id number] 10:05:00 10:05:00 [place] [employer] [facility] l Medicine Outpati ent Clinics 2019-09-05 2019-09-05 Outpatient C KARI, [facility] [id number] [place] 04:26:00 09:33:00 [facility] 2019-08-29 2019-08-29 [facility] [id number] 13:00:00 13:00:00 [place] [employer] [facility] l Medicine Outpati ent Clinics 2019-08-26 2019-08-26 [facility] [id number] 13:55:00 13:55:00 [place] [employer] [facility] l Medicine Outpati ent Clinics 2019-08-21 2019-08-21 [facility] [id number] 16:51:00 16:51:00 [place] [employer] [facility] l Medicine Outpati ent Clinics 2019-08-13 2019-08-13 [facility] [id number] 14:52:00 14:52:00 t [place] [employer] - [employer] [facility] l Medicine Outpati ent Clinics 2019-07-31 2019-07-31 [facility] [id number] 11:06:00 11:06:00 [place] [address] Luke [facility] - Drive [facility] Medicine Medicine Outpati ent Clinics 2019-07-11 2019-07-11 [facility] [id number] 09:00:00 09:00:00 [place] [address] [employer] s - Drive [facility] Medicine l Medicine Outpati ent Clinics 2019-07-09 2019-07-09 [facility] [id number] 14:59:00 14:59:00 [place] [employer] Luke s - Drive [facility] Medicine l Medicine Outpati ent Clinics 2019-07-04 2019-07-04 [facility] [id number] 10:20:00 10:20:00 [place] [employer] - Drive [facility] Medicine Outpati ent Clinics 2019-07-03 2019-07-03 [facility] [id number] 14:02:00 14:02:00 [place] [employer] - Drive [facility] Medicine Outpati ent Clinics 2019-07-01 2019-07-01 [facility] [id number] 11:14:00 11:14:00 [place] [employer] - Drive [facility] Medicine Outpati ent Clinics 2019-05-30 2019-05-30 [facility] [id number] 11:55:00 11:55:00 [place] [employer] - Drive [facility] Medicine Outpati ent Clinics 2019-05-13 2019-05-13 [facility] [id number] 11:55:00 11:55:00 [place] [employer] [employer] s - Drive [facility] Medicine Outpati ent Clinics 2019-05-02 2019-05-02 [facility] [id number] 16:40:00 16:40:00 [place] [employer] s - Drive [facility] Medicine Outpati ent Clinics 2019-04-29 2019-04-29 [facility] [id number] 10:42:00 10:42:00 [place] [employer] - Drive [facility] Medicine Outpati ent Clinics 2019-04-17 2019-04-17 [facility] [id number] 16:32:00 16:32:00 [place] [employer] s - Drive [facility] Medicine Outpati ent Clinics 2019-03-17 2019-03-17 [facility] [id number] 14:08:00 14:08:00 [place] [employer] s - Drive [facility] Medicine Outpati ent Clinics 2019-03-05 2019-03-05 [facility] [id number] 14:23:00 14:23:00 [place] [employer] - [employer] [facility] Medicine Outpati ent Clinics 2019-02-17 2019-02-17 [facility] [id number] 15:01:00 15:01:00 [place] [employer] - [employer] [facility] Medicine Outpati ent Clinics 2019-02-05 2019-02-05 [facility] [id number] 12:12:00 12:12:00 [place] [employer] [facility] Medicine Outpati ent Clinics 2019-01-31 2019-01-31 [facility] [id number] 14:00:00 14:00:00 [place] [employer] - [employer] [facility] Medicine Outpati ent Clinics 2019-01-23 2019-01-23 [facility] [id number] 08[facility]39:00 08:39:00 [place] [employer] s - Drive [facility] Medicine Outpati ent Clinics 2019-01-20 2019-01-20 [facility] [id number] 08:04:00 08:04:00 [place] [employer] - Drive [facility] Medicine Outpati ent Clinics 2018-12-19 2018-12-19 [facility] [id number] 10:00:00 10:00:00 t [facility] ent Clinics 2018-12-17 2018-12-17 [facility] [id number] 08:28:00 08:28:00 [place] [address] Luke [place] - Drive [facility] 2018-12-11 2018-12-11 [facility] [id number] 11:29:00 11:29:00 t [facility] - [facility] ent Clinics 2018-12-06 2018-12-06 [facility] [id number] 09:16:00 09:16:00 t [facility] ent Clinics 2018-12-05 2018-12-05 [facility] [id number] 14:30:00 14:30:00 t [facility] ent Clinics 2018-11-28 2018-11-28 [facility] [id number] 09:30:00 09:30:00 t [facility] ent Clinics 2018-11-07 2018-11-07 [facility] [id number] 17:10:00 17:10:00 [place] [address] Luke [facility] - Drive [facility] ent Clinics 2018-10-14 2018-10-14 [facility] [id number] 08:58:00 08:58:00 [place] [address] Luke s - Drive [facility] 2018-10-07 2018-10-07 [facility] [id number] 16:40:00 16:40:00 [place] [address] Luke s - Drive [facility] Clin[facility] 2018-09-04 2018-09-04 [facility] [id number] 15:15:00 15:15:00 [place] [address] Luke s - Drive [facility] Clin[facility] 2018-07-23 2018-07-23 [facility] [id number] 15:57:00 15:57:00 [place] [address] Luke [place] - Drive [facility] Medicine Medicine Outpati ent Clinics 2018-07-04 2018-07-04 [facility] [id number] 16:40:00 16:40:00 [place] [address] Luke s - Drive [facility] l Medicine Outpati ent Clinics 2018-07-02 2018-07-02 [facility] [id number] 13:29:00 13:29:00 [place] [address] Luke s - Drive [facility] Medicine Outpati ent Clinics 2018-06-21 2018-06-21 [facility] [id number] 09:19:00 09:19:00 [place] - Drive [facility] Medicine Outpati ent Clinics 2018-06-18 2018-06-18 [facility] [id number] 15:45:00 15:45:00 [place] [employer] - Drive [facility] Medicine Outpati ent Clinics 2018-05-15 2018-05-15 [facility] [id number] 15:45:00 15:45:00 [place] - Drive [facility] Medicine Medicine Outpati ent Clinics 2017-12-07 2017-12-07 [facility] [id number] 13:36:00 13:36:00 [place] [employer] - Drive [facility] Medicine Outpati ent Clinics 2017-10-15 2017-10-15 [facility] [id number] 13:00:00 13:00:00 [place] - Drive [facility] Medicine Medicine Outpati ent Clinics 2017-10-05 2017-10-05 [facility] [id number] 08:30:00 08:30:00 [place] - Drive [facility] Medicine Outpati ent Clinics 2017-07-25 2017-07-25 [facility] [id number] 16:13:00 16:13:00 t [place] [employer] - Drive [facility] Medicine Outpati ent Clinics 2017-07-16 2017-07-16 [facility] [id number] 10:12:00 10:12:00 t [employer] - [employer] [facility] Outpati ent Clinics 2017-07-16 2017-07-16 [facility] [id number] 10:05:00 10:05:00 t [employer] [facility] Outpati ent Clinics 2017-07-12 2017-07-12 [facility] [id number] 14:27:00 14:27:00 t [employer] [facility] Medicine Outpati ent Clinics 2017-07-08 2017-07-08 [facility] [id number] 16:23:00 16:23:00 t [employer] [facility] Outpati ent Clinics 2017-07-06 2017-07-06 [facility] [id number] 08:00:00 08:00:00 [employer] [facility] Results Test Description Test Time Test Comments Results Result Comments Source GLUCOMETER GLUCOSE- LAB USE ONLY 2019-09-05 05:51:00 Test Item Value Reference Range Interpretation Comme nts GLUCOMETER (test code = [facility]) 140 mg/dL 70-100 H Meter ID: [id number]: [id number] JAMI DENSON POCT-GLUCOSE [id number] 13:27:00 Test Item Value Reference Range Interpretation Comments POC-GLUCOSE METER 195 mg/dL 70-110 H TESTED AT [facility] 67Addepar ([place] [employer]) (test code = JACQUES Ordoñez [facility] 1538) [id number] POCT-GLUCOSE [id number] 06:19:00 Test Item Value Reference Range Interpretation Comments POC-GLUCOSE METER 145 mg/dL 70-110 H TESTED AT [facility] 6720 ([place] [place] [employer]) (test code = [facility] Smita [facility] 1538) [id number] BASIC METABOLIC [id number] 06:13:00 Test Item Value Reference Range Interpretation [...] PATIEN TS. CBC W/PLT COUNT & AUTO [id number] 05:37:00 Test Item Value Reference Range Interpretation [...] PERCENT (BEAKER) (test code = 2801) POCT-GLUCOSE [id number] 23:38:00 Test Item Value Reference Range Interpretation Comments POC-GLUCOSE METER 176 mg/dL 70-110 H TESTED AT [place] [address] [facility] (test code = JACQUES Ordoñez [facility] 1538) [id number] POCT-GLUCOSE [id number] 18:32:00 Test Item Value Reference Range Interpretation Comments POC-GLUCOSE METER 177 mg/dL 70-110 H TESTED AT [place] [address] ([facility] (test code = JACQUES Ordoñez [facility] 1538) [id number] MR, BRAIN, WITHOUT [id number] 17:46:00FINAL REPORT MR, BRAIN, WITHOUT CONTRAST INDICATION: [...] Unremarkable MRI of the brain. Signed: Agus Stevensort Verified Date/Time: 06/10/2018 17:46:10 Reading Location: [facility] Rad[facility] Reading Room POCT-GLUCOSE [id number] 12:31:00 Test Item Value Reference Range Interpretation Comments POC-GLUCOSE METER 148 mg/dL 70-110 H TESTED AT [facility] 6720 ([facility]) (test code = JACQUES [place] 1538) [id number] HEMOGLOBIN [id number] 10:38:00 Test Item Value Reference Range Interpretation Comments HEMOGLOBIN A1C (BEAKER) (test code = 7.7 % 4.3-6.1 H 368) LIPID [id number] 10:31:00 Test Item Value Reference Range Interpretation Comments TRIGLYCERIDES (BEAKER) (test code = 228 mg/dL 540) CHOLESTEROL (BEAKER) (test code = 141 mg/dL 631) HDL CHOLESTEROL ([facility]) (test code 38 mg/dL = 976) LDL CHOLESTEROL CALCULATED ([facility]) 57 mg/dL (test code = 633) Triglyceride Reference Range: Low Risk <150 Borderline 150-199 High Risk 200-499 Very High Risk >=500Cholesterol Reference Range: Low Risk <200 Borderline 200-239 High Risk >240HDL Cholesterol Reference Range: Low Risk >=60 High Risk <40LDL Cholesterol Reference Range: Optimal <100 Near Optimal 100-129 Borderline 130-159 High 160-189 Very High >=190VITAMIN [id number] 08:18:00 Test Item Value Reference Range Interpretation Comments VITAMIN B12 (BEAKER) (test code = 701 pg/mL 213-816 774) TSH/FREE T4 IF [id number] 07:10:00 Test Item Value Reference Range Interpretation Comments THYROID STIMULATING HORMONE 3.11 uIU/mL 0.35-4.94 (BEAKER) (test code = 772) TROPONIN [id number] 06:56:00 Test Item Value Reference Range Interpretation [...] acidosis, acute neurological disease, and persistent tachyarrhythmia.POCT-GLUCOSE [id number] 06:46:00 Test Item Value Reference Range Interpretation Comments POC-GLUCOSE METER 125 mg/dL 70-110 H TESTED AT [facility] 6720 ([facility]) (test code = JACQUES Ordoñez [place] 1538) [address] [id number] 06:38:00 Test Item Value Reference Range Interpretation Comments PARTIAL THROMBOPLASTIN TIME 30.3 seconds 22.5-36.0 ([facility]) (test code = 760) PROTHROMBIN [id number] 06:37:00 Test Item Value Reference Range Interpretation Comments PROTIME ([employer]) (test code = 12.6 seconds 11.7-14.7 759) INR ([facility]) (test code = 370) 0.9 <=5.9 RECOMMENDED COUMADIN/WARFARIN INR THERAPY RANGESSTANDARD DOSE: 2.0 - 3.0 Includes: PROPHYLAXIS forvenous thrombosis, systemic embolization; TREATMENT for venous thrombosis and/or pulmonary embolus.HIGH RISK: Target INR is 2.5-3.5 for patients with mechanical heart valves.
[2019-12-23] MEDS ORDERED: NA CHLORIDE 0.9% 1,000 ML ONE (12:06)
[2019-12-23] MEDS ORDERED: propofoL 200 MG/20 ML VIAL IV ONE (12:51)
[2019-12-23] MEDS ORDERED: LIDOCAINE 1% MPF 5 ML VIAL ONE (12:52)
[2019-12-23] MEDS ORDERED: ONDANSETRON 4 MG/2 ML VIAL ONE (12:53)
[2019-12-23] MEDS ORDERED: GLYCOPYRROLATE 0.2 MG/ML SYR ONE (13:10)
[2019-12-23 14:24] VITALS: BP 92/52
[2019-12-23 14:26] VITALS: TEMP 97.5; O2SAT 95
--- NOTE | 2019-12-23 16:49 | OP ---
Surgeon: Malcom Lieberman MD Procedure To Be Performed: Esophagogastroduodenoscopy. Indication For Procedure: Significant epigastric abdominal pain along with nausea, on a very good PP I. Plan For Anesthesia: Monitored anesthesia care. Complexity: Average. Technique: After obtaining informed consent from the patient and explaining risks and complications which include, but are not limited to bleeding, infection, perforation, and anesthesia complication, the patient was placed in a left lateral position and sedation was given. From then on the scope was advanced into the mouth and carefully guided up to the third portion of the duodenum. After complet ion of the examination and all diagnostic maneuvers, the scope and equipment were withdrawn and proce dure terminated in a safe manner. Findings: Esophagus: The upper and mid portion of the esophagus appeared normal; however, in the di stal portion, there was evidence of esophagitis dissecans with appearance of sloughing of esophageal mucosa without any significant inflammation. This continued till the GE junction. A 2 cm hiatal her arsh was seen in the distal portion. The GE junction was at 40 cm. Multiple biopsies taken in the di stal esophageal portion for evaluation to rule out any evidence of any infection and determine the et iology of these findings. Stomach: Mild patchy erythema seen in the body and antrum. Biopsies taken. Duodenum: The bulb second and third portion appeared normal. Small bowel biopsies taken to rule out celiac disease. Complications: None. Tolerance To Anesthesia: Excellent. Postoperative Diagnoses: Suspected esophagitis with sloughing of esophageal mucosa, hiatal hernia, g astritis. Plan: 1.Await pathology results. 2.Continue PPI and Carafate. 3.If upper biopsy is also negative, we will need to evaluate for other causes of the patient's sympt oms. May also consider laparoscopy if needed, but we will determine that based on his symptoms as we ll as findings of pathology and other studies that have been done. US/MODL Voice ID: [id number] Report ID: [id number]
== END 2019-12-23 14:00 | disposition home or self-care (01) ==
LOC: OR 11:21
PROVIDERS: ATTEND Internal Medicine Gastroenterology
PROC: 0DB88ZX Excision of Small Intestine, Via Natural or Artificial Opening Endoscopic, Diagnostic (ICD-10-PCS; 2019-12-23)
PROC: 0DB78ZX Excision of Stomach, Pylorus, Via Natural or Artificial Opening Endoscopic, Diagnostic (ICD-10-PCS; 2019-12-23)
PROC: 0DB58ZX Excision of Esophagus, Via Natural or Artificial Opening Endoscopic, Diagnostic (ICD-10-PCS; principal; 2019-12-23 12:30)
DX: K29.50 Unspecified chronic gastritis without bleeding (principal); K21.0 Gastro-esophageal reflux disease with esophagitis; K44.9 Diaphragmatic hernia without obstruction or gangrene; E11.9 Type 2 diabetes mellitus without complications; I10 Essential (primary) hypertension; E78.5 Hyperlipidemia, unspecified; F41.9 Anxiety disorder, unspecified
CPT/HCPCS: 88312 ×2; 82947; 88305; 43239; J2704; J7030; J2405

== ENCOUNTER 2025-01-17 10:50 | Emergency (ER) | payer BC ==
[2025-01-17] MEDS ORDERED: LEVETIRACETAM 500 MG/5 ML VIAL IV ONE (11:07)
[2025-01-17] MEDS ORDERED: NA CHLORIDE 0.9% 100 ML ONE (11:07)
[2025-01-17] MEDS ORDERED: NA CHLORIDE 0.9% 1,000 ML ONE (11:07)
[2025-01-17] MEDS ORDERED: ACETAMINOPHEN 325 MG TABLET ONE (11:52)
[2025-01-17 11:56] LABS: Absolute Lymphocytes (CBC) 1.5 K/uL (0.7-4.9); Hematocrit 44.1 % (39.6-49.0); Hemoglobin 14.8 g/dL (13.6-17.9); MCH 28.8 pg (27.0-35.0); MCHC 33.6 g/dL (32.0-36.0); MCV 85.6 fL (80-100); MPV 7.2 fL (7.6-11.3); Nucleated RBC Absolute Count 0.0 (0-0); Nucleated Red Blood Cells % 0.0 % (0-0); RBC Red Blood Cell Count 5.15 M/uL (4.33-5.43); White Blood Count 5.40 thou/uL (4.3-10.9)
--- NOTE | 2025-01-17 12:00 | RAD REPORT ---
Procedure: Chest Single View HISTORY: Seizure COMPARISON: 2019 FINDINGS: The lungs appear clear of acute infiltrate. No significant pleural effusion noted. The heart is normal size. IMPRESSION: No acute abnormality is displayed.
[2025-01-17 12:19] LABS: ALT/SGPT 40 U/L (16-61); AST/SGOT 17 U/L (15-37); Albumin 3.8 g/dL (3.4-5.0); Albumin/Globulin Ratio 1.2 (1.1-1.8); Alkaline Phosphatase 104 U/L (45-117); Anion Gap 11.9 mEq/L (5.0-15.0); BUN Blood Urea Nitrogen 10 mg/dL (7-18); Bilirubin Indirect, Calculated 0.6 mg/dL (0.2-0.8); Globulin 3.2 g/dL (2.3-3.5); Glucose Level 118 mg/dL (74-106); NT PRO-BNP 11 pg/mL (<125); PT Prothrombin Time 12.4 SECONDS (10-13.0); PTT, Activated Partial Thromb 35.6 SECONDS (27.2-37.4); Potassium 3.9 mEq/L (3.5-5.1); Protime INR 1.1
[2025-01-17 12:23] LABS: Troponin High Sensitivity < 3.0 pg/mL (<58.9)
--- NOTE | 2025-01-17 13:16 | RAD REPORT ---
EXAM: CT brain without contrast HISTORY: Headache COMPARISON: 2019 TECHNIQUE: Multiple contiguous axial images were obtained and a CT of the brain without contrast.. Sagittal and coronal reconstruction performed. Automated exposure control, adjustment of the mA and/or kV according to patient size, and/or iterative reconstruction. Unless otherwise specified, incidental f indings do not require dedicated imaging follow-up FINDINGS: An intracranial bleed is not seen Ventricles are normal caliber No extra-axial fluid collection noted No significant hypodensity within the brain No fluid within the visualized sinuses or mastoids noted. IMPRESSION: No acute intracranial abnormality noted. If the patient continues to have symptoms to suggest an acute intracranial abnormality then MRI of th e brain would be recommended.
--- NOTE | 2025-01-17 13:31 | RAD REPORT ---
EXAMINATION: Neck Angio CLINICAL INDICATION: Headache, hypertension and seizure TECHNIQUE: Axial CT images were obtained from the aortic arch to the skull base after intravenous adm inistration of 100 cc Isovue-370 utilizing angiographic protocol. Multiplanar reformats, as well as 3D post-processing (maximum intensity projection images, volume rendered images and/or shaded surface rendered images) were generated and reviewed. One or more of the following dose reduction techniques were used: Automated exposure control, adjustment of the mA and/or kV according to patient size, and/or iterative reconstruction. Unless otherwise specified, incidental findings do not require dedicated imaging follow-up. COMPARISON: No prior exam. FINDINGS: The visualized aortic arch and great vessels do not demonstrate a significant abnormality Common carotid, internal carotid and external carotid arteries unremarkable. Hypoplastic right vertebral artery. Vertebral arteries unremarkable No significant stenosis noted. A dissection is not seen. Methods for NASCET criteria: Mild stenosis, 0% to 49%; Moderate stenosis 50% to 69%; Severe stenosis, 70% to 99% IMPRESSION: No acute vascular abnormality displayed
--- NOTE | 2025-01-17 13:31 | RAD REPORT ---
EXAMINATION: CTA HEAD CLINICAL INDICATION: Headache. Seizure. Hypertension TECHNIQUE: Axial CT images were obtained through the head after 100 cc Isovue-370 intravenous contras t utilizing angiographic protocol with 3D post-processing (maximum intensity projection images, volume rendered images and/or shaded surface rendered images). One or more of the following dose red uction techniques were used: Automated exposure control, adjustment of the mA and/or kV according to patient size, and/or iterative reconstruction. Unless otherwise specified, incidental findings do not require dedicated imaging follow-up. COMPARISON: None FINDINGS: origin right posterior cerebral artery Distal internal carotid, basilar, anterior cerebral, middle cerebral and posterior cerebral arteries do not demonstrate a significant stenosis An aneurysm not noted. No large vessel occlusion IMPRESSION: No acute vascular abnormality displayed
--- NOTE | 2025-01-17 13:43 | EDPHYS ---
Physician Documentation [facility] Name: Micth Lobo Age: 44 yrs Sex: Male : 1980 Arrival Date: 01/17/2025 Time: 10:50 Bed 6 Private MD: ED Physician Erasmo Rodrigez HPI: 01/17 11:23 This 44 yrs old Male presents to ER via Ambulatory with complaints of Seizure. rn 11:23 Patient presents with 2 possible seizures, 1 last night and 1 today. Has had a seizure rn before but has been greater than 10 years apart. Does not take antiepileptics. Spouse reports he has been under a lot of stress lately and not sleeping. No fever or chills. No head injury. Prior to seizure was acting fine with no medical complaints. No chest pain or shortness of breath. No [id number] medications or new medications. Denies abdominal pain. Reports nausea and mild headache. Has not taken his blood pressure medicine today.. Historical: - Allergies: 10:54 No Known Allergies; bp - PMHx: 10:54 Diabetes - NIDDM; Gastric Reflux; High Cholesterol; Hypertension; Pancreatitis; bp - Immunization history:: Adult Immunizations up to date. - Infectious Disease History:: Denies. - Social history:: Smoking status: Patient denies any tobacco usage or history of. - Family history:: not pertinent. - Hospitalizations: : No recent hospitalization is reported. ROS: 11:23 Constitutional: Negative for fever, chills, and weight loss, Neck: Negative for injury, rn pain, and swelling, Cardiovascular: Negative for chest pain, palpitations, and edema, Respiratory: Negative for shortness of breath, cough, wheezing, and pleuritic chest pain, Abdomen/GI: Negative for abdominal pain, positive for nausea MS/Extremity: Negative for injury and deformity, Skin: Negative for injury, rash, and discoloration, Neuro: Positive for headache and seizure Exam: 11:23 Constitutional: This is a well developed, well nourished patient who is awake, appears rn postictal and emotional Head/Face: Normocephalic, atraumatic. Eyes: Pupils equal round and reactive to light, extra-ocular motions intact. Lids and lashes normal. Conjunctiva and sclera are non-icteric and not injected. Cornea within normal limits. Periorbital areas with no swelling, redness, or edema. Cardiovascular: Regular rate and rhythm. No pulse deficits. Respiratory: No increased work of breathing, no retractions or nasal flaring. Abdomen/GI: Soft, nontender Neuro: Awake, appears postictal, tearful, moves all 4 extremities with equal strength. No drift. Sensation intact. 12:27 ECG was reviewed by the Attending Physician. rn Vital Signs: 11:00 BP 141 / 109; Pulse 72; Resp 16; Temp 97.7(O); Pulse Ox 98% on R/A; Weight 97.52 kg; ss Height 5 ft. 10 in. ; Pain 9/10; 11:03 BP 141 / 101; ss 12:27 BP 135 / 89; Pulse 65; Resp 18; Pulse Ox 100% on R/A; ph 13:26 BP 139 / 90; Pulse 63; Resp 16; Pulse Ox 99% ; bp 11:00 Body Mass Index 30.85 (97.52 kg, 177.8 cm) ss 11:00 Pain Scale: Adult ss Gilbert Coma Score: 11:00 Eye Response: spontaneous(4). Motor Response: obeys commands(6). Verbal Response: ss oriented(5). Total: 15. 12:27 Eye Response: spontaneous(4). Motor Response: obeys commands(6). Verbal Response: ph oriented(5). Total: 15. MDM: 10:54 Medical Screening Exam initiated rn 13:41 Differential diagnosis: seizure, Acute stress reaction, syncope. Data reviewed: vital rn signs, nurses notes, lab test result(s), EKG, radiologic studies, CT scan, plain films, and as a result, I will discharge patient. Independent interpretation of the following test(s) in the Emergency Department EKG: See my EKG interpretation above X-Ray: My interpretation is Chest x-ray image negative for acute cardiopulmonary process per my interpretation. potline monitor: rate is 65 beats/min, Rhythm is normal sinus rhythm, regular, with no ectopy, Interpretation: normal rate, normal rhythm. Care significantly affected by the following chronic conditions: Diabetes. Care significantly affected by the following chronic conditions: Seizure. Counseling: I had a detailed discussion with the patient and/or guardian regarding the historical points, exam findings, and any diagnostic results supporting the discharge/admit diagnosis, lab results, radiology results. Response to treatment: the patient's symptoms have markedly improved after treatment, and as a result, I will discharge patient. Special discussion: I discussed with the patient/guardian in detail that at this point there is no indication for admission to the hospital. It is understood, however, that if the symptoms persist or worsen the patient needs to return immediately for re-evaluation. Based on the history and exam findings, there is no indication for further emergent testing or inpatient evaluation. I discussed with the patient/guardian the need to see the neurologist for further evaluation of the symptoms. ED course: I have personally reviewed all of the results, including but not limited to blood tests and imaging deemed necessary to safely discharge this patient at this time. All results given to and printed out for patient. I personally went over all the results with the patient and answered all questions. Patient will follow-up with PCP and or specialist as discussed. Return precautions given and understood.. 13:43 Counseling: I had a detailed discussion with the patient and/or guardian regarding the rn presence of at least one elevated blood pressure reading (>120/80) during this emergency department visit. Special discussion: I have referred the patient to see his PCP for further evaluation of high blood pressure. 01/17 11:04 Order name: Basic Metabolic Panel; Complete Time: 13:34 rn 01/17 11:04 Order name: CBC with Diff; Complete Time: 12:05 rn 01/17 11:04 Order name: LFT's; Complete Time: 13:34 rn 01/17 11:04 Order name: NT PRO-BNP; Complete Time: 13:34 rn 01/17 11:04 Order name: PT-INR; Complete Time: 12:20 rn 01/17 11:04 Order name: Troponin HS; Complete Time: 13:34 rn 01/17 11:05 Order name: Acetaminophen; Complete Time: 13:34 rn 01/17 11:05 Order name: ETOH Level; Complete Time: 12:20 rn 01/17 11:05 Order name: Salicylate; Complete Time: 13:34 rn 01/17 11:54 Order name: PTT, Activated Partial Thromb; Complete Time: 12:20 EDMS 01/17 11:04 Order name: XRAY Chest (1 view); Complete Time: 12:05 rn 01/17 11:04 Order name: CT Head Brain wo Cont; Complete Time: 13:34 rn 01/17 11:04 Order name: Head Angio CT; Complete Time: : rn 01/17 11:04 Order name: Neck Angio CT; Complete Time: : rn 01/17 11:04 Order name: Cardiac monitoring; Complete Time: : rn 01/17 11:04 Order name: EKG - Nurse/Tech; Complete Time: 12: rn 01/17 11:04 Order name: IV Saline Lock; Complete Time: : rn 01/17 11:04 Order name: Labs collected and sent; Complete Time: : rn 01/17 11:04 Order name: O2 Per Protocol; Complete Time: : rn 01/17 11:04 Order name: O2 Sat Monitoring; Complete Time: rn EC Rate is 67 beats/min. Rhythm is regular. QRS [place] is Normal. NH interval is normal. QRS rn interval is normal. QT interval is normal. No Q waves. T waves are Normal. No ST changes noted. Clinical impression: Normal ECG. Interpreted by me. Reviewed by me. Administered Medications: 12:00 Drug: Acetaminophen PO 650 mg PO once Route: PO; ph 14:01 Follow up: Response: No adverse reaction bp 12:24 Drug: Keppra IV 1000 mg IV at calculated rate once Route: IV; Rate: calculated rate; ph Site: right antecubital; 14:01 Follow up: IV Status: Completed infusion bp 12:24 Drug: NS 0.9% IV 1000 ml IV at 1000 ml once; to be given as a bolus over 60 minutes ph Route: IV; Rate: 1000 ml; Site: right antecubital; 14:01 Follow up: IV Status: Completed infusion bp 13:45 Drug: Ketorolac IVP 15 mg IVP once Route: IVP; Site: right antecubital; bp 14:01 Follow up: Response: No adverse reaction bp Disposition Summary: 01/17/25 13:43 Discharge Ordered Notes: Location: Home rn Problem: new rn Symptoms: have improved rn Condition: Stable rn Diagnosis - Other seizures rn Followup: rn - With: Frankie Garrett MD - When: As needed - Reason: Recheck today's complaints, Re-evaluation by your physician Discharge Instructions: - Discharge Summary Sheet rn - Seizure, Adult rn Forms: - Medication Reconciliation Form rn - Antibiotic rn night - Prescription Opioid Use rn - Patient Portal Instructions rn - Leadership Thank You Letter rn Signatures: Dispatcher [employer] EDMS Erasmo Rodrigez MD MD rn Neelam Coffman RN RN Danyel Coyle, KAYLA RN bp Corrections: (The following items were deleted from the chart) 11: 11:04 BASIC METABOLIC PANEL+C.LAB.BRZ ordered. EDMS EDMS 11:04 11:04 CBC+H.LAB.BRZ ordered. EDMS EDMS 11: 11:04 HEPATIC FUNCTION+C.LAB.BRZ ordered. EDMS EDMS 11: 11:04 PROBNP+C.LAB.BRZ ordered. EDMS EDMS 11:04 11:04 PROTIME (+INR)+COAG.LAB.BRZ ordered. EDMS EDMS 11:04 11:04 Troponin High Sensitivity+C.LAB.BRZ ordered. EDMS EDMS 11:04 11:04 Chest Single View+RAD.RAD.BRZ ordered. EDMS EDMS 11:04 11:04 Head Brain Wo Cont+CT.RAD.BRZ ordered. EDMS EDMS 11:05 11:05 Head Angio+CT.RAD.BRZ ordered. EDMS EDMS 11:05 11:05 Neck Angio+CT.RAD.BRZ ordered. EDMS EDMS 11:05 11:05 URINE DRUG SCREEN+UC.LAB.BRZ ordered. EDMS EDMS
--- NOTE | 2025-01-17 13:43 | ER ---
Nurse's Notes [facility] Name: Mitch Lobo Age: 44 yrs Sex: Male : 1980 Arrival Date: 01/17/2025 Time: 10:50 Bed 6 Private MD: Diagnosis: Other seizures Presentation: 01/17 11:00 Chief complaint: Spouse and/or significant other states: TUCKER and seizure last night, two ss more seizures this morning. States he has been under a lot of stress lately. reports patient had one random seizure approximately 10 years ago. Coronavirus screen: Client denies travel out of the [place] in the last 14 days. Ebola Screen: Patient denies exposure to infectious person. Patient denies travel to an Ebola-affected area in the 21 days before illness onset. Initial Sepsis Screen: Does the patient meet any 2 criteria? No. Patient's initial sepsis screen is negative. Does the patient have a suspected source of infection? No. Patient's initial sepsis screen is negative. Risk Assessment: Do you want to hurt yourself or someone else? Patient reports no desire to harm self or others. Onset of symptoms was January 16, 2025. 11:00 Method Of Arrival: Ambulatory ss 11:00 Acuity: JOSE M 3 ss Historical: - Allergies: 10:54 No Known Allergies; bp - PMHx: 10:54 Diabetes - NIDDM; Gastric Reflux; High Cholesterol; Hypertension; Pancreatitis; bp - Immunization history:: Adult Immunizations up to date. - Infectious Disease History:: Denies. - Social history:: Smoking status: Patient denies any tobacco usage or history of. - Family history:: not pertinent. - Hospitalizations: : No recent hospitalization is reported. Screenin:26 [facility] ED Fall Risk Assessment (Adult) History of falling in the last 3 months, ph including since admission No falls in past 3 months (0 pts) Confusion or Disorientation No (0 pts) Intoxicated or Sedated No (0 pts) Impaired Gait No (0 pts) Mobility Assist Device Used No (0 pt) Altered Elimination No (0 pt) Score/Fall Risk Level 0 - 2 = Low Risk Oriented to surroundings, Maintained a safe environment, Hourly rounding (assess needs \T\ fall precautionary measures) done. Abuse screen: Denies threats or abuse. Denies injuries from another. Nutritional screening: No deficits noted. Tuberculosis screening: No symptoms or risk factors identified. Assessment: 12:25 General: Appears in no apparent distress. comfortable, well groomed, Behavior is calm, ph cooperative, appropriate for age. Pain: Complains of pain in headache. Neuro: Level of Consciousness is awake, alert, obeys commands, Oriented to person, place, time, situation, Seizure activity reported prior to arrival. Cardiovascular: Capillary refill < 3 seconds in bilateral fingers Patient's skin is warm and dry. Respiratory: Airway is patent Respiratory effort is even, unlabored. GI: No signs and/or symptoms were reported involving the gastrointestinal system. Derm: Skin is pink, warm \T\ dry. 13:26 Reassessment: Patient appears in no apparent distress at this time. No changes from bp previously documented assessment. Patient is alert, oriented x 3, equal unlabored respirations, skin warm/dry/pink. Vital Signs: 11:00 BP 141 / 109; Pulse 72; Resp 16; Temp 97.7(O); Pulse Ox 98% on R/A; Weight 97.52 kg; ss Height 5 ft. 10 in. ; Pain 9/10; 11:03 BP 141 / 101; ss 12:27 BP 135 / 89; Pulse 65; Resp 18; Pulse Ox 100% on R/A; ph 13:26 BP 139 / 90; Pulse 63; Resp 16; Pulse Ox 99% ; bp 11:00 Body Mass Index 30.85 (97.52 kg, 177.8 cm) ss 11:00 Pain Scale: Adult ss Darin Coma Score: 11:00 Eye Response: spontaneous(4). Motor Response: obeys commands(6). Verbal Response: ss oriented(5). Total: 15. 12:27 Eye Response: spontaneous(4). Motor Response: obeys commands(6). Verbal Response: ph oriented(5). Total: 15. ED Course: 10:53 Patient arrived in ED. ts1 10:54 Danyel Marrufo, KAYLA is Primary Nurse. bp 10:54 Erasmo Rodrigez MD is Attending Physician. rn 11:00 Arm band placed on right wrist. ss 11:02 Triage completed. ss 11:23 XRAY Chest (1 view) In Process Unspecified. EDMS 11:35 Missed attempt(s): 22 gauge in left antecubital area. Bleeding controlled, band aid ph applied, catheter tip intact. 11:45 Initial lab(s) drawn, by me, sent to lab. EKG done, by ED staff, reviewed by Erasmo Rodrigez MD. Inserted saline lock: 22 gauge in right antecubital area, using aseptic technique. Blood collected. Flushed with 10 mL NS. 12:26 Bed in low position. Call light in reach. Side rails up X2. Seizure precautions ph initiated. library monitor on. Pulse ox on. NIBP on. Door closed. Noise minimized. Lights dimmed. Warm blanket given. Pillow given. 13:08 CT Head Brain wo Cont In Process Unspecified. EDMS 13:[address] In Process Unspecified. EDMS 13:[address] In Process Unspecified. EDMS 13:42 Frankie Garrett MD is Referral Physician. rn 14:02 No provider procedures requiring assistance completed. IV discontinued, intact, bp bleeding controlled, No redness/swelling at site. Pressure dressing applied. Administered Medications: 12:00 Drug: Acetaminophen PO 650 mg PO once Route: PO; ph 14:01 Follow up: Response: No adverse reaction bp 12:24 Drug: Keppra IV 1000 mg IV at calculated rate once Route: IV; Rate: calculated rate; ph Site: right antecubital; 14:01 Follow up: IV Status: Completed infusion bp 12:24 Drug: NS 0.9% IV 1000 ml IV at 1000 ml once; to be given as a bolus over 60 minutes ph Route: IV; Rate: 1000 ml; Site: right antecubital; 14:01 Follow up: IV Status: Completed infusion bp 13:45 Drug: Ketorolac IVP 15 mg IVP once Route: IVP; Site: right antecubital; bp 14:01 Follow up: Response: No adverse reaction bp Medication: 12:26 VIS not applicable for this client. ph Outcome: 13:43 Discharge ordered by . rn 14:02 Discharged to home ambulatory, with family, bp 14:02 Condition: stable 14:02 Discharge instructions given to patient, Instructed on discharge instructions, follow up and referral plans. medication usage, Demonstrated understanding of instructions, follow-up care, 14:03 Patient left the ED. bp Signatures: Dispatcher [employer] EDPR Erasmo Rodrigez MD MD rn Blanchard, Shelby, RN RN Neelam Sams RN RN ph Danyel Marrufo, RN RN Marjorie Griffin, [facility] ts1 Corrections: (The following items were deleted from the chart) 12:24 12:24 Acetaminophen PO 650 mg PO ph ph
[2025-01-17] MEDS ORDERED: KETOROLAC 30 MG/ML INJ ONE (13:54)
[2025-01-17 14:41] VITALS: TEMP 97.7
[2025-01-17 14:51] VITALS: BP 139/90; O2SAT 99
== END 2025-01-17 14:03 | disposition home or self-care (01) ==
LOC: ER 10:50
DX: R56.9 Unspecified convulsions (principal); R51.9 Headache, unspecified
CPT/HCPCS: 96365; 93005; 85025; 80048; 36415; 85610; 80076; 85730; 84484; 83880; 70450; 70496; 70498; 71045; 96375; 99285; 96366; 80143; 80179; 82077; Q9967; J1885; J1953; J7030

== ENCOUNTER 2025-01-19 20:19 | Emergency (ER) | payer BC ==
[2025-01-19] MEDS ORDERED: NA CHLORIDE 0.9% 100 ML ONE (20:58)
[2025-01-19] MEDS ORDERED: LEVETIRACETAM 500 MG/5 ML VIAL IV ONE (20:58)
[2025-01-19 21:06] LABS: Absolute Lymphocytes (CBC) 1.9 K/uL (0.7-4.9); Hematocrit 42.7 % (39.6-49.0); Hemoglobin 14.2 g/dL (13.6-17.9); MCH 28.6 pg (27.0-35.0); MCHC 33.3 g/dL (32.0-36.0); MCV 85.9 fL (80-100); MPV 7.7 fL (7.6-11.3); Nucleated RBC Absolute Count 0.0 (0-0); Nucleated Red Blood Cells % 0.0 % (0-0); RBC Red Blood Cell Count 4.97 M/uL (4.33-5.43); White Blood Count 5.70 thou/uL (4.3-10.9)
[2025-01-19 21:24] LABS: ALT/SGPT 42 U/L (16-61); AST/SGOT 19 U/L (15-37); Albumin 3.8 g/dL (3.4-5.0); Albumin/Globulin Ratio 1.2 (1.1-1.8); Alkaline Phosphatase 130 U/L (45-117); Anion Gap 8.8 mEq/L (5.0-15.0); BUN Blood Urea Nitrogen 14 mg/dL (7-18); Globulin 3.1 g/dL (2.3-3.5); Glucose Level 134 mg/dL (74-106); Potassium 3.8 mEq/L (3.5-5.1)
--- NOTE | 2025-01-19 21:31 | RAD REPORT ---
EXAMINATION: Head Brain Wo Cont CLINICAL INDICATION: Male, 44 years old.seizure + trauma;Seizure TECHNIQUE: Axial CT images from the skull base to the vertex without intravenous contrast. Coronal an d sagittal reformatted images were created from the data set. One or more of the following dose reduction techniques were used: Automated exposure control, adjustment of the mA and/or kV according to patient size, and/or iterative reconstruction. Unless otherwise specified, incidental findings do not require dedicated imaging follow-up. [id number]. COMPARISON: 01/17/25 FINDINGS: INTRACRANIAL: No acute intracranial hemorrhage. No acute large vascular territory infarct. No hydro cephalus. No mass effect or midline shift. No significant white matter disease. VASCULATURE: No visualized abnormalities in the arteries or dural venous sinuses. SCALP/SKULL: No calvarial fracture identified. No acute soft tissue abnormality. SINUSES: The visualized paranasal sinuses are mostly clear. No significant mastoid fluid. IMPRESSION: No acute intracranial abnormality.
--- NOTE | 2025-01-19 21:37 | RAD REPORT ---
EXAMINATION: Shoulder Right 2+ Views CLINICAL INDICATION: Male, 44 years old. trauma fall RIGHT COMPARISON: No prior exam. FINDINGS: No acute fracture. No malalignment/dislocation. Mild right AC joint degenerative changes. Other: n/a IMPRESSION: No acute osseous abnormality.
[2025-01-19 21:43] LABS: PT Prothrombin Time 10.5 SECONDS (10-13.0); PTT, Activated Partial Thromb 34.4 SECONDS (27.2-37.4); Protime INR 0.93
[2025-01-19 21:47] LABS: Bilirubin Indirect, Calculated 0.2 mg/dL (0.2-0.8)
[2025-01-19] MEDS ORDERED: MORPHINE 2 MG/ML SYR ONE (21:47)
[2025-01-19] MEDS ORDERED: ONDANSETRON 4 MG/2 ML VIAL ONE (21:47)
--- NOTE | 2025-01-19 22:12 | ER ---
Nurse's Notes [facility] Name: Mitch Lobo Age: 44 yrs Sex: Male : 1980 Arrival Date: 01/19/2025 Time: 20:19 Bed 17 Private MD: Judd Barrera Diagnosis: Multiple seizures, closed head injury Presentation: 01/19 20:31 Chief complaint: Spouse and/or significant other states: hx of seizure but had none [place] [facility] [place] 10 [place]. Had one on Sunday night and was seen here. No meds started because the Dr thought maybe that seizure was stress induced. Patient has continued to have some seizures since then and had one tonight about 19:45 and fell in the shower, hit his head and right shoulder. Reports his body hurts all over, pain 11/02. Coronavirus screen: Vaccine status: Patient reports being unvaccinated. Ebola Screen: No symptoms or risks identified at this time. Initial Sepsis Screen: Does the patient meet any 2 criteria? No. Patient's initial sepsis screen is negative. Does the patient have a suspected source of infection? No. Patient's initial sepsis screen is negative. Risk Assessment: Do you want to hurt yourself or someone else? Patient reports no desire to harm self or others. Onset of symptoms was January 19, 2025 at 19:45. 20:31 Method Of Arrival: Wheelchair [facility] 20:31 Acuity: JOSE M 3 ak1 Triage Assessment: 23:46 General: Behavior is calm, cooperative, appropriate for age. bm8 Historical: - Allergies: 20:34 No Known Allergies; me1 - PMHx: 20:34 Diabetes - NIDDM; Gastric Reflux; High Cholesterol; Hypertension; Pancreatitis; me1 Seizure; Anxiety; Depressive disorder; - PSHx: 20:34 Appendectomy; Cholecystectomy; me1 - Immunization history:: Adult Immunizations up to date. - Infectious Disease History:: Denies. - Social history:: Smoking status: Patient denies any tobacco usage or history of. Screenin:00 [facility] ED Fall Risk Assessment (Adult) History of falling in the last 3 months, bm8 including since admission No falls in past 3 months (0 pts) Confusion or Disorientation No (0 pts) Intoxicated or Sedated No (0 pts) Impaired Gait No (0 pts) Mobility Assist Device Used No (0 pt) Altered Elimination No (0 pt) Score/Fall Risk Level 0 - 2 = Low Risk Oriented to surroundings, Maintained a safe environment, Educated pt \T\ family on fall prevention, incl call for assistance when getting out of bed, Assessed \T\ reinforced patient's understanding of fall precautions, Hourly rounding (assess needs \T\ fall precautionary measures) done, Used ambulatory aids as needed (educated on \T\ assisted with), Used gait belt as appropriate. Abuse screen: Denies threats or abuse. Nutritional screening: No deficits noted. Tuberculosis screening: No symptoms or risk factors identified. Assessment: 21:01 Reassessment: Patient appears in no apparent distress at this time. No changes from [facility] previously documented assessment. Patient and/or family updated on plan of care and expected duration. Pain level reassessed. Patient is alert, oriented x 3, equal unlabored respirations, skin warm/dry/pink. General: Appears in no apparent distress. uncomfortable. Pain: Complains of pain in head. Neuro: No deficits noted. Level of Consciousness is awake, alert, obeys commands, Oriented to person, place, time, situation, Appropriate for age Attorney Lawyer are equal bilaterally Moves all extremities. Full function Gait is steady, Speech is normal, Facial symmetry appears normal, Pupils are PERRLA, Pupil Size: 4mm Intact Reports headache. Cardiovascular: No deficits noted. Respiratory: No deficits noted. GI: No deficits noted. : No deficits noted. EENT: No deficits noted. Derm: No deficits noted. Musculoskeletal: No deficits noted. 21:44 Reassessment: Patient appears in no apparent distress at this time. Patient and/or bm8 family updated on plan of care and expected duration. Pain level reassessed. Patient is alert, oriented x 3, equal unlabored respirations, skin warm/dry/pink. General: provider notified of pt's pain level and new orders received. Pain: Complains of pain in head and right shoulder Pain currently is 8 out of 10 on a pain scale. 23:18 Reassessment: Patient appears in no apparent distress at this time. Patient and/or bm8 family updated on plan of care and expected duration. Pain level reassessed. Patient is alert, oriented x 3, equal unlabored respirations, skin warm/dry/pink. Patient denies pain at this time. Patient states feeling better. Patient states symptoms have improved. 23:22 Reassessment: attempted to give report to [facility] ER, no answer from triage nurse. bm8 23:44 Reassessment: Patient appears in no apparent distress at this time. Patient and/or bm8 family updated on plan of care and expected duration. Pain level reassessed. Patient is alert, oriented x 3, equal unlabored respirations, skin warm/dry/pink. Patient denies pain at this time. Patient states feeling better. Patient states symptoms have improved. Vital Signs: 20:31 BP 149 / 102; Pulse 75; Resp 18; Temp 97.9; Pulse Ox 100% ; Weight 99.34 kg; Height 5 me1 ft. 10 in. ; Pain 8/10; 21:12 BP 144 / 94; Pulse 74; Resp 18; Temp 97.9; Pulse Ox 100% ; Pain 6/10; bm8 21:44 BP 135 / 93; Pulse 76; Resp 17; Temp 97.9; Pulse Ox 100% ; Pain 8/10; bm8 23:18 BP 128 / 83; Pulse 77; Resp 17; Temp 97.9; Pulse Ox 100% ; Pain 0/10; bm8 23:42 BP 123 / 81; Pulse 75; Resp 17; Temp 97.9; Pulse Ox 100% ; Pain 0/10; bm8 20:31 Body Mass Index 31.42 (99.34 kg, 177.8 cm) me1 20:31 Pain Scale: Adult me1 21:12 Pain Scale: Adult bm8 21:44 Pain Scale: Adult bm8 23:18 Pain Scale: Adult bm8 23:42 Pain Scale: Adult bm8 Darin Coma Score: 20:34 Eye Response: spontaneous(4). Motor Response: obeys commands(6). Verbal Response: me1 oriented(5). Total: 15. 21:00 Eye Response: spontaneous(4). Motor Response: obeys commands(6). Verbal Response: bm8 oriented(5). Total: 15. 21:44 Eye Response: spontaneous(4). Motor Response: obeys commands(6). Verbal Response: bm8 oriented(5). Total: 15. 23:18 Eye Response: spontaneous(4). Motor Response: obeys commands(6). Verbal Response: bm8 oriented(5). Total: 15. 23:42 Eye Response: spontaneous(4). Motor Response: obeys commands(6). Verbal Response: bm8 oriented(5). Total: 15. ED Course: 20:23 Patient arrived in ED. gm2 20:23 Judd Barrera DO is Private Physician. gm2 20:25 Evi Barrera MD is Attending Physician. sp3 20:34 Triage completed. me1 20:34 Arm band placed on Patient placed in an exam room. me1 20:39 EKG done, by technical sme. reviewed by Evi Barrera MD. ts3 20:54 Mic Currie, RN is Primary Nurse. bm8 20:54 No provider procedures requiring assistance completed. Inserted saline lock: 18 gauge bm8 in right antecubital area, using aseptic technique. Blood collected. Flushed with 10 mL NS. 21:00 Patient has correct armband on for positive identification. Bed in low position. Call bm8 light in reach. Side rails up X 1. Adult w/ patient. Patient has correct armband on for positive identification. Seizure precautions initiated. Client placed on continuous cardiac and pulse oximetry monitoring. NIBP monitoring applied. patient monitor on. Pulse ox on. NIBP on. Door closed. Warm blanket given. Pillow given. Verbal reassurance given. Head of bed. 21:00 Patient maintains SpO2 saturation greater than 95% on room air. bm8 21:08 CT Head Brain wo Cont In Process Unspecified. EDMS 21:25 Shoulder Right (2 View) XRAY In Process Unspecified. EDMS 22:08 initiated transfer at [facility] with Fifi Amaro \T\ [id number]. kmf 23:09 pt was accepted to [facility] by Dr. Marlena Casas \T\ [id number]. Admin approval given by Fifi Amaro \T\ 2309. Number for nurse to nurse report [phone]. [place] [facility] to transfer pt. 23:18 Provided Education on: need for transfer. bm8 23:18 Patient transferred, IV remains in place. bm8 Administered Medications: 21:11 Drug: Keppra IV 1000 mg IV at calculated rate once Route: IV; Rate: calculated rate; bm8 Site: right antecubital; 21:44 Follow up: Response: No adverse reaction; IV Status: Completed infusion bm8 21:51 Drug: morphine 4 mg IVP once over 4 mins Route: IVP; Infused Over: 4 mins; Site: right bm8 antecubital; 23:19 Follow up: Response: No adverse reaction bm8 21:51 Drug: Zofran (Ondansetron) 4 mg IVP once; over 2 minutes Route: IVP; Site: right bm8 antecubital; 23:19 Follow up: Response: No adverse reaction bm8 Medication: 21:00 VIS not applicable for this client. bm8 Outcome: 22:11 ER care complete, transfer ordered by . sp3 23:44 Transferred by ground EMS to [facility], Transfer form completed. bm8 X-rays sent w/ patient. 23:44 Condition: stable 23:44 Instructed on the need for transfer, Demonstrated understanding of instructions, follow-up care, medications, 01/20 00:05 Patient left the ED. bm8 Signatures: Dispatcher [employer] EDEvi Oviedo MD MD sp3 Mere Ribeiro RN RN me1 Day Pop 2 Jessica Ling [facility] Mic Currie RN RN bm8 Maria Del Carmen Kaplan ts3 Corrections: (The following items were deleted from the chart) 01/19 20:37 20:31 Pulse 75bpm; Resp 18bpm; Pulse Ox 100%; Temp 97.9F; 99.34 kg; Height 5 ft. 10 me1 in.; BMI: 31.4; Pain 8/10, Adult; me1
--- NOTE | 2025-01-19 22:12 | EDPHYS ---
Physician Documentation [facility] Name: Mitch Lobo Age: 44 yrs Sex: Male : 1980 Arrival Date: 01/19/2025 Time: 20:19 Bed 17 Private MD: [facility] ED Physician Evi Barrera HPI: 01/19 21:07 This 44 yrs old Male presents to ER via Wheelchair with complaints of Seizure, Fall sp3 Injury. 21:07 44-year-old male with history of diabetes, reflux, hyperlipidemia, hypertension, prior sp3 seizure over 10 years ago with none since then until 2 days ago where he was seen here for single seizure. It was determined that it may be stress related and conservative treatment was undertaken. Patient received Keppra 1 g in the ER at that time however no home antiepileptics were started. Subsequent to that yesterday patient had 2 seizures and 2 more today. Patient spouse works with Dr. Barrera PCP next-door and advised him to come in to the ER. The second seizure today patient was showering and he fell and hit his head and right shoulder. He complains of mild headache and mild shoulder pain. No seizure activity in the ER. He denies any substance use, neck pain, chest pain, shortness of breath, abdominal pain, syncope, prodrome to his seizures, or any other signs or symptoms on ROS at this time.. Historical: - Allergies: 20:34 No Known Allergies; me1 - PMHx: 20:34 Diabetes - NIDDM; Gastric Reflux; High Cholesterol; Hypertension; Pancreatitis; me1 Seizure; Anxiety; Depressive disorder; - PSHx: 20:34 Appendectomy; Cholecystectomy; me1 - Immunization history:: Adult Immunizations up to date. - Infectious Disease History:: Denies. - Social history:: Smoking status: Patient denies any tobacco usage or history of. ROS: 21:08 Constitutional: Negative for fever, chills, and weight loss, Eyes: Negative for injury, sp3 pain, redness, and discharge, ENT: Negative for injury, pain, and discharge, Neck: Negative for injury, pain, and swelling, Cardiovascular: Negative for chest pain, palpitations, and edema, Respiratory: Negative for shortness of breath, cough, wheezing, and pleuritic chest pain, Abdomen/GI: Negative for abdominal pain, nausea, vomiting, diarrhea, and constipation, Back: Negative for injury and pain, MS/Extremity: Negative for injury and deformity, Skin: Negative for injury, rash, and discoloration, Psych: Negative for depression, anxiety, suicide ideation, homicidal ideation, and hallucinations, Allergy/Immunology: Negative for hives, rash, and allergies, Endocrine: Negative for neck swelling, polydipsia, polyuria, polyphagia, and marked weight changes, Hematologic/Lymphatic: Negative for swollen nodes, abnormal bleeding, and unusual bruising, 21:08 All other systems are negative, Exam: 21:08 Constitutional: This is a well developed, well nourished patient who is awake, alert, sp3 and in no acute distress. Head/Face: Normocephalic, atraumatic. Eyes: Pupils equal round and reactive to light, extra-ocular motions intact. Lids and lashes normal. Conjunctiva and sclera are non-icteric and not injected. Cornea within normal limits. Periorbital areas with no swelling, redness, or edema. Neck: Trachea midline, no thyromegaly or masses palpated, and no cervical lymphadenopathy. Supple, full range of motion without nuchal rigidity, or vertebral point tenderness. No Meningismus. Chest/axilla: Normal chest wall appearance and motion. Nontender with no deformity. No lesions are appreciated. Cardiovascular: Regular rate and rhythm with a normal S1 and S2. No gallops, murmurs, or rubs. Normal PMI, no JVD. No pulse deficits. Respiratory: Lungs have equal breath sounds bilaterally, clear to auscultation and percussion. No rales, rhonchi or wheezes noted. No increased work of breathing, no retractions or nasal flaring. Abdomen/GI: Soft, non-tender, with normal bowel sounds. No distension or tympany. No guarding or rebound. No evidence of tenderness throughout. Back: No spinal tenderness. No costovertebral tenderness. Full range of motion. Skin: Warm, dry with normal turgor. Normal color with no rashes, no lesions, and no evidence of cellulitis. MS/ Extremity: Pulses equal, no cyanosis. Neurovascular intact. Full, normal range of motion. Neuro: Awake and alert, GCS 15, oriented to person, place, time, and situation. Cranial nerves II-XII grossly intact. Motor strength 5/5 in all extremities. Sensory grossly intact. Cerebellar exam normal. Normal gait. Psych: Awake, alert, with orientation to person, place and time. Behavior, mood, and affect are within normal limits. 21:08 ECG was reviewed by the Attending Physician. EKG demonstrates normal sinus rhythm at 75 bpm with normal intervals, normal QRS, normal axis, normal ST/T-segment's without evidence of acute ischemia. Vital Signs: 20:31 BP 149 / 102; Pulse 75; Resp 18; Temp 97.9; Pulse Ox 100% ; Weight 99.34 kg; Height 5 me1 ft. 10 in. ; Pain 8/10; 21:12 BP 144 / 94; Pulse 74; Resp 18; Temp 97.9; Pulse Ox 100% ; Pain 6/10; bm8 21:44 BP 135 / 93; Pulse 76; Resp 17; Temp 97.9; Pulse Ox 100% ; Pain 8/10; bm8 23:18 BP 128 / 83; Pulse 77; Resp 17; Temp 97.9; Pulse Ox 100% ; Pain 0/10; bm8 23:42 BP 123 / 81; Pulse 75; Resp 17; Temp 97.9; Pulse Ox 100% ; Pain 0/10; bm8 20:31 Body Mass Index 31.42 (99.34 kg, 177.8 cm) me1 20:31 Pain Scale: Adult me1 21:12 Pain Scale: Adult bm8 21:44 Pain Scale: Adult bm8 23:18 Pain Scale: Adult bm8 23:42 Pain Scale: Adult bm8 Darin Coma Score: 20:34 Eye Response: spontaneous(4). Motor Response: obeys commands(6). Verbal Response: me1 oriented(5). Total: 15. 21:00 Eye Response: spontaneous(4). Motor Response: obeys commands(6). Verbal Response: bm8 oriented(5). Total: 15. 21:44 Eye Response: spontaneous(4). Motor Response: obeys commands(6). Verbal Response: bm8 oriented(5). Total: 15. 23:18 Eye Response: spontaneous(4). Motor Response: obeys commands(6). Verbal Response: bm8 oriented(5). Total: 15. 23:42 Eye Response: spontaneous(4). Motor Response: obeys commands(6). Verbal Response: bm8 oriented(5). Total: 15. MDM: 20:25 Medical Screening Exam initiated sp3 21:09 Data reviewed: vital signs, nurses notes. ED course: Recurrent seizures. Differential sp3 diagnosis includes recurrent epilepsy, delirium, electrolyte disturbance or other process inducing seizures, other intracranial pathology, among others. Workup will include CT scan of the head, right shoulder x-ray, general labs and we will load with Keppra 1 g IV. I have advised patient and spouse that patient likely needs EEG and due to the number of seizures we should consider admission. Will discuss with Dr. Garrett to see if he can arrange quick visit in the office otherwise consider transfer to appropriate facility.. 22:10 ED course: Full workup are negative including imaging. Patient still having headache sp3 and we will add morphine and Zofran for control. I discussed the case with Dr. Garrett who recommends continuous EEG monitoring given the number of seizures. Will transfer patient to neuro unit at [facility]. 01/19 20:46 Order name: Acetaminophen; Complete Time: 21:58 sp3 01/19 20:46 Order name: Basic Metabolic Panel; Complete Time: 21:58 sp3 01/19 20:46 Order name: CBC with Diff; Complete Time: 21:58 3 01/19 20:46 Order name: Hepatic Function; Complete Time: 21:58 sp3 01/19 20:46 Order name: PT-INR; Complete Time: 21:58 sp3 01/19 20:46 Order name: Ptt, Activated; Complete Time: 21:58 3 01/19 20:46 Order name: Salicylate; Complete Time: 21:58 sp3 01/19 20:46 Order name: CT Head Brain wo Cont; Complete Time: 21:58 sp3 01/19 20:46 Order name: Shoulder Right (2 View) XRAY; Complete Time: 21:58 3 01/19 20:46 Order name: IV Saline Lock; Complete Time: 20:54 sp3 01/19 20:46 Order name: Labs collected and sent; Complete Time: 20:54 sp3 Administered Medications: 21:11 Drug: Keppra IV 1000 mg IV at calculated rate once Route: IV; Rate: calculated rate; bm8 Site: right antecubital; 21:44 Follow up: Response: No adverse reaction; IV Status: Completed infusion bm8 21:51 Drug: morphine 4 mg IVP once over 4 mins Route: IVP; Infused Over: 4 mins; Site: right bm8 antecubital; 23:19 Follow up: Response: No adverse reaction bm8 21:51 Drug: Zofran (Ondansetron) 4 mg IVP once; over 2 minutes Route: IVP; Site: right bm8 antecubital; 23:19 Follow up: Response: No adverse reaction bm8 Disposition Summary: 01/19/25 22:11 Transfer Ordered Notes: Transfer Location: [facility] sp3 Reason: Higher level of care sp3 Condition: Stable sp3 Problem: new sp3 Symptoms: have worsened sp3 Accepting Physician: JOSE neurologist and hospitalist at [facility](01/20/25 00:05) bm8 Diagnosis - Multiple seizures, closed head injury sp3 Forms: - Medication Reconciliation Form sp3 - SBAR form sp3 Signatures: Dispatcher [employer] EDEvi Oviedo MD MD sp3 Mere Ribeiro, RN RN me1 Mic Currie, RN RN bm8 Corrections: (The following items were deleted from the chart) 20:47 20:47 Head Brain Wo Cont+CT.RAD.BRZ ordered. EDMS EDMS 20:47 20:47 ACETAMINOPHEN+C.LAB.BRZ ordered. EDMS EDMS 20:47 20:47 BASIC METABOLIC PANEL+C.LAB.BRZ ordered. EDMS EDMS 20:47 20:47 CBC+H.LAB.BRZ ordered. EDMS EDMS 20:47 20:47 HEPATIC FUNCTION+C.LAB.BRZ ordered. EDMS EDMS 20:47 20:47 PROTIME (+INR)+COAG.LAB.BRZ ordered. EDMS EDMS 20:47 20:47 PTT, ACTIVATED+COAG.LAB.BRZ ordered. EDMS EDMS 20:47 20:47 SALICYLATE+C.LAB.BRZ ordered. EDMS EDMS 20:47 20:47 URINE DRUG SCREEN+UC.LAB.BRZ ordered. EDMS EDMS 20:47 20:47 Shoulder Right 2 View+RAD.RAD.BRZ ordered. EDMS EDMS 01/20 00:05 01/19 22:11 TBD neurologist and hospitalist at [facility] sp3 bm8
[2025-01-20 09:22] VITALS: TEMP 97.9; O2SAT 100
[2025-01-20 09:35] VITALS: BP 123/81
== END 2025-01-20 00:05 | disposition short-term general hospital (02) ==
LOC: ER 20:19
DX: G40.909 Epilepsy, unspecified, not intractable, without status epilepticus (principal); S09.90XA Unspecified injury of head, initial encounter; M25.511 Pain in right shoulder; W18.30XA Fall on same level, unspecified, initial encounter
CPT/HCPCS: 96365; 93005; 85025; 80048; 36415; 85610; 80076; 85730; 70450; 73030; 96375; 99285; 80143; 80179; J1953; J2270; J2405